=== PATIENT | female | born 1955 | race Caucasian/White ===

== ENCOUNTER 2016-09-29 17:52 | Emergency (ER) | payer OTHER ==
[~2016-09-29] VITALS: Ht 170.2 cm; Wt 72.5 kg
[2016-09-29 18:15] VITALS: BP 141/81; PULSE 68; RESP 18; TEMP 98; O2SAT 100
[2016-09-29] MEDS ORDERED: SODIUM CHLOR 0.9% 1000 ML INJ 1,000 ML IV SCH (18:41)
--- NOTE | 2016-09-29 18:43 | PD ---
HPI Chief Complaint: Musculoskeletal Complaint Time Seen by Provider: 18:43 Travel History International Travel<30 days: No Contact w/Intl Traveler<30days: No Traveled to known affect area: No History of Present Illness HPI 61-year-old female presents to the emergency department for evaluation of upper back pain for 3 days. Denies any injury or trauma. States that 3 days ago she was sitting on her porch when she began to suddenly experienced "burning pain" that she describes as "between her shoulder blades." States that the pain has been persistent for the past 3 days. Aggravated with inspiration and movement. Improved with sitting still. States she has shortness of breath associated with the pain. Denies any chest pain, lightheadedness, dizziness, nausea, vomiting, numbness or tingling, weakness. Denies any medical conditions. Denies any history of or heart disease or family history of heart disease. She does have a history of smoking cigarettes for approximately 50 years. States she has not seen a doctor in about 15 years because she is generally healthy. No other complaints. PFSH Past Medical History Medical History: Denies Significant Hx Tetanus Vaccination: > 5 Years Influenza Vaccination: No ?: Not Menopausal: Yes Past Surgical History Surgical History: No Previous Surgery Social History Alcohol Use: No Tobacco Use: Yes (1 PPD) Substance Use: No Allergies-Medications (Allergen,Severity, Reaction): Coded Allergies: No Known Allergies (Unverified , 09/29/16) Reported Meds & Prescriptions Reported Meds & Active Scripts Active Lortab (Hydrocodone-Acetaminophen) 5-325 Mg Tab 1 Tab PO Q6H PRN Naproxen 500 Mg Tab 500 Mg PO BID 7 Days Review of Systems Except as stated in HPI: all other systems reviewed are Neg Physical Exam Narrative GENERAL: Well-nourished and well-developed pleasant female patient in moderate amount of discomfort, no acute distress. SKIN: Warm and dry. HEAD: Normocephalic and atraumatic. EYES: No injection, drainage, or hyphema noted. PERRLA. EOMI. ENT: No nasal drainage noted. Oropharynx is clear. NECK: Supple and the trachea is midline. CARDIOVASCULAR: Regular rate and rhythm. RESPIRATORY: Breath sounds are equal bilaterally with no accessory muscle use, wheezing, rhonchi, or crackles. GASTROINTESTINAL: Abdomen is soft, non-tender, and nondistended. MUSCULOSKELETAL: No obvious deformities, swelling, cyanosis, or ecchymosis is present throughout the upper and lower extremities. Patient has full range of motion without any signs of neurovascular compromise. Strength 5/5 upper and lower extremities equal bilaterally. 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 She has some mild tenderness to palpation over left thoracic paraspinal musculature. No obvious deformities, bony point tenderness, or crepitus noted throughout the thoracic and lumbar vertebrae. NEUROLOGICAL: Awake, alert, and oriented. Normal speech and gait. Cranial nerves are grossly intact. Data Data Last Documented VS Vital Signs Date Time Temp Pulse Resp B/P Pulse Ox O2 Delivery O2 Flow Rate FiO2 09/29/16 19:00 72 18 161/56 98 Room Air 09/29/16 18:15 98.0 Orders Electrocardiogram (09/29/16 18:41) Ckmb (Isoenzyme) Profile (09/29/16 18:41) Complete Blood Count With Diff (09/29/16 18:41) Comprehensive Metabolic Panel (09/29/16 18:41) Magnesium (Mg) (09/29/16 18:41) Prothrombin Time / Inr (Pt) (09/29/16 18:41) Act Partial Throm Time (Ptt) (09/29/16 18:41) Troponin I (09/29/16 18:41) Chest, Single Ap (09/29/16 18:41) Ecg Monitoring (09/29/16 18:41) Bilateral Bp Monitoring (09/29/16 18:41) Iv Access Insert/Monitor (09/29/16 18:41) Oximetry (09/29/16 18:41) Oxygen Administration (09/29/16 18:41) Morphine Inj (Morphine Inj) (09/29/16 18:45) Sodium Chloride 0.9% Flush (Ns Flush) (09/29/16 18:45) Ct Pulmonary Angiogram (09/29/16 18:41) Sodium Chlor 0.9% 1000 Ml Inj (Ns 1000 M (09/29/16 18:41) Iohexol 350 Inj (Omnipaque 350 Inj) (09/29/16 20:14) Ketorolac Inj (Toradol Inj) (09/29/16 20:45) Labs Laboratory Tests Test 09/29/16 18:45 White Blood Count 4.4 TH/MM3 Red Blood Count 5.42 MIL/MM3 Hemoglobin 16.1 GM/DL Hematocrit 49.7 % Mean Corpuscular Volume 91.7 FL Mean Corpuscular Hemoglobin 29.7 PG Mean Corpuscular Hemoglobin 32.4 % Concent Red Cell Distribution Width 13.5 % Platelet Count 227 TH/MM3 Mean Platelet Volume 9.0 FL Neutrophils (%) (Auto) 39.2 % Lymphocytes (%) (Auto) 43.8 % Monocytes (%) (Auto) 13.3 % Eosinophils (%) (Auto) 2.9 % Basophils (%) (Auto) 0.8 % Neutrophils # (Auto) 1.7 TH/MM3 Lymphocytes # (Auto) 1.9 TH/MM3 Monocytes # (Auto) 0.6 TH/MM3 Eosinophils # (Auto) 0.1 TH/MM3 Basophils # (Auto) 0.0 TH/MM3 CBC Comment DIFF FINAL Differential Comment Prothrombin Time 10.0 SEC Prothromb Time International 0.9 RATIO Ratio Activated Partial 25.9 SEC Thromboplast Time Sodium Level 143 MEQ/L Potassium Level 3.4 MEQ/L Chloride Level 110 MEQ/L Carbon Dioxide Level 24.9 MEQ/L Anion Gap 8 MEQ/L Blood Urea Nitrogen 21 MG/DL Creatinine 0.73 MG/DL Estimat Glomerular Filtration 81 ML/MIN Rate Random Glucose 93 MG/DL Calcium Level 9.2 MG/DL Magnesium Level 2.2 MG/DL Total Bilirubin 0.5 MG/DL Aspartate Amino Transf 21 U/L (AST/SGOT) Alanine Aminotransferase 27 U/L (ALT/SGPT) Alkaline Phosphatase 99 U/L Total Creatine Kinase 61 U/L Troponin I LESS THAN 0.02 NG/ML Total Protein 7.8 GM/DL Albumin 3.7 GM/DL [facility] Medical Decision Making Medical Screen Exam Complete: Yes Emergency Medical Condition: Yes Differential Diagnosis Muscle spasm versus discogenic pain versus PE versus ACS versus TAA Narrative Course 61-year-old female presents to the emergency department for evaluation of upper back pain for 3 days. Patient is afebrile, vital signs are stable. No injury or trauma. Physical examination is essentially unremarkable. Patient appears quite uncomfortable in the exam room. IV access is obtained, labs have been drawn and sent. Chest x-ray has been ordered and is pending. CT pulmonary angiogram has been ordered and is pending. Patient is administered morphine 4 mg IV. EKG shows normal sinus rhythm with no acute ST elevations or depressions. CBC shows an elevated hemoglobin and hematocrit of 16.1, 49.7. Otherwise unremarkable. CMP shows mild hypokalemia with a potassium of 3.4, otherwise unremarkable. Troponin is less than 0.02. Coags are unremarkable. Chest x-ray is negative for any acute abnormalities. CT pulmonary angiogram is negative for PE. Study does reveal 2 subcentimeter right apical pulmonary nodules and coronary artery calcifications. Discussed all findings with the patient. She is instructed to follow-up for repeat CT scan in 6 months for pulmonary nodules. Cardiac enzymes are negative , EKG is unremarkable and CT pulmonary angiograms unremarkable for any acute abnormalities. The patient's back pain is likely musculoskeletal in etiology. She has remained stable and without complaint. The emergency department. She' ll be discharged with pain medication. Discussed when to return to the emergency department. Advised to follow-up with her PCP. Patient verbalizes understanding and agreement with treatment plan. I discussed the case with my attending physician Dr. Jaramillo who is aware of the patients history, physical examination findings, and treatment plan. Diagnosis Primary Impression: Acute thoracic back pain Qualified Code: M54.6 - Acute left-sided thoracic back pain Additional Impression: Pulmonary nodules Referrals: Primary Care Physician Patient Instructions: Back Pain (ED), General Instructions Additional Instructions: Have a repeat chest CT in 6 months to follow pulmonary nodules. Apply ice or heat to help alleviate symptoms. Take medications as prescribed with food and a full glass of water. Do not take Lortab with alcohol or while driving. Follow-up with your Primary Care Physician. Return to the ED for any acute worsening of symptoms. Med/Other Pt SpecificInfo: Prescription(s) given Scripts Hydrocodone-Acetaminophen (Lortab)5-325 Mg Tab1 Tab PO Q6H PRN (PAIN GREATER THAN 6) #20 TAB Ref 0 Prov:Tyson Jaramillo MD 09/29/16 Naproxen 500 Mg [id number] Mg PO BID 7 Days Ref 0 Prov:Tyson Jaramillo MD 09/29/16 Disposition: 01 DISCHARGE HOME Condition: Stable Kylah Bone Sep 29, 2016 18:43
[2016-09-29] MEDS ORDERED: MORPHINE SULFATE 4 MG/ML INJ IV PUSH ONE (18:45)
[2016-09-29] MEDS ORDERED: SODIUM CHLORIDE 0.9% FLUSH 5 ML FLUSH IVF PRN (18:45)
[2016-09-29 18:55] VITALS: O2SAT 98
[2016-09-29 19:00] VITALS: BP 161/56; PULSE 72; RESP 18; O2SAT 98
[2016-09-29 19:00] LABS: AUTOMATED NEUTROPHIL # 1.7 TH/MM3 (1.8-7.7); BASOPHIL % 0.8 % (0.0-2.0); EOSINOPHIL # 0.1 TH/MM3 (0-0.4); EOSINOPHIL % 2.9 % (0.0-4.0); HEMATOCRIT 49.7 % (35.0-46.0); HEMO FLAGS DIFF FINAL; LYMPH % 43.8 % (9.0-44.0); LYMPHOCYTE # 1.9 TH/MM3 (1.0-4.8); MEAN CELL VOLUME 91.7 FL (80.0-100.0); MEAN CORPUSCULAR HEMOGLOBIN 29.7 PG (27.0-34.0); MEAN CORPUSCULAR HGB CONC 32.4 % (32.0-36.0); MONO % 13.3 % (0.0-8.0); NEUT % 39.2 % (16.0-70.0); PLATELET COUNT 227 TH/MM3 (150-450); RED BLOOD COUNT 5.42 MIL/MM3 (4.00-5.30); RED CELL DISTRIBUTION WIDTH 13.5 % (11.6-17.2); WHITE BLOOD COUNT 4.4 TH/MM3 (4.0-11.0)
[2016-09-29 19:13] LABS: CHLORIDE 110 MEQ/L (98-107); POTASSIUM 3.4 MEQ/L (3.5-5.1); SODIUM (NA) 143 MEQ/L (136-145)
[2016-09-29 19:18] LABS: ANION GAP 8 MEQ/L (5-15); BICARBONATE 24.9 MEQ/L (21.0-32.0); BLOOD UREA NITROGEN 21 MG/DL (7-18); MAGNESIUM 2.2 MG/DL (1.5-2.5)
[2016-09-29 19:19] LABS: APTT (PATIENT) 25.9 SEC (24.3-30.1); INTERNATIONAL NORMALIZED RATIO 0.9 RATIO
--- NOTE | 2016-09-29 19:20 | RADHPO ---
EXAM DATE/TIME: 09/29/2016 19:06 [facility] COMPARISON: No previous studies available for comparison. INDICATIONS : UPPER BACK PAIN BETWEEN THE SHOULDER BLADES SINCE THURSDAY MEDICAL HISTORY : None. SURGICAL HISTORY : None. ENCOUNTER: Initial ACUITY: 2 days PAIN SCORE: 6/10 LOCATION: Bilateral chest FINDINGS: A single view of the chest demonstrates the lungs to be symmetrically aerated without evidence of mas s, infiltrate or effusion. The cardiomediastinal contours are unremarkable. Osseous structures are intact. CONCLUSION: No evidence of acute cardiopulmonary disease. Erlin Diaz MD on September 29, 2016 at 19:19 Board Certified Radiologist. This report was verified electronically.
[2016-09-29 19:21] LABS: ALT (GPT) 27 U/L (10-53); AST (GOT) 21 U/L (15-37); GLOMERULAR FILTRATION RATE 81 ML/MIN (>89)
[2016-09-29 19:22] LABS: TOTAL BILIRUBIN ADULT 0.5 MG/DL (0.2-1.0)
[2016-09-29 19:23] LABS: ALKALINE PHOSPHATASE 99 U/L (45-117)
[2016-09-29 20:00] LABS: CREATINE KINASE 61 U/L (26-192)
[2016-09-29] MEDS ORDERED: IOHEXOL 350 MG/ML 10 ML VIAL (for RAD DIAG) IV ONE (20:14)
--- NOTE | 2016-09-29 20:19 | RADHPO ---
EXAM DATE/TIME: 09/29/2016 19:52 [facility] COMPARISON: No previous studies available for comparison. INDICATIONS : Chest pain. IV CONTRAST: 60 cc Omnipaque 350 (iohexol) IV RADIATION DOSE: 11.33 CTDIvol (mGy) MEDICAL HISTORY : None SURGICAL HISTORY : None. ENCOUNTER: Initial ACUITY: 1 day PAIN SCALE: 3/10 LOCATION: chest TECHNIQUE: Volumetric scanning of the chest was performed using a pulmonary embolism protocol MIP images were re constructed. Using automated exposure control and adjustment of the mA and/or kV according to patien t size, radiation dose was kept as low as reasonably achievable to obtain optimal diagnostic quality images. FINDINGS: PULMONARY ARTERIES: No filling defects are seen in the pulmonary arteries through the segmental level. LUNGS: Mild to moderate emphysema. 3 mm apical segment right upper lobe pulmonary nodule seen on series 4 im age 33. There is a 9 mm nodule in the posterior segment of the right upper lobe, series 4 image 41. PLEURAE: There is no pleural thickening or pleural effusion. MEDIASTINUM: No lymphadenopathy demonstrated. Heart size within normal limits. There is coronary artery calcificat ion, especially the left anterior descending. MUSCULOSKELETAL: Within normal limits for patient age. MISCELLANEOUS: The visualized upper abdominal organs demonstrate no acute abnormality. CONCLUSION: 1. No pulmonary embolus. 2. Coronary artery calcification. 3. Emphysema. 4. Subcentimeter right upper lobe pulmonary nodules. Followup noncontrast chest CT recommended in [facility]. Elrin Diaz MD on September 29, 2016 at 20:14 Board Certified Radiologist. This report was verified electronically.
[2016-09-29] MEDS ORDERED: HYDR-3533 PO (20:34)
[2016-09-29] MEDS ORDERED: NAPR500T PO (20:34)
[2016-09-29] MEDS ORDERED: KETOROLAC TROMETHAMINE 30 MG/ML (IVP) VIAL IV PUSH ONE (20:45)
[2016-09-29 21:00] VITALS: BP 168/71
--- NOTE | 2016-09-30 10:32 | EKG ---
Date Performed: 09/29/2016 Time Performed: 18:51:38 PTAGE: 61 years EKG: Sinus rhythm Normal ECG NO PREVIOUS TRACING DOCTOR: Cecil Green Interpretating Date/Time 09/30/2016 10:32:06
== END 2016-09-29 21:01 | disposition home or self-care (01) ==
LOC: PHEFT 17:52
DX: M54.6 Pain in thoracic spine (principal); R91.8 Other nonspecific abnormal finding of lung field; R06.02 Shortness of breath; F17.210 Nicotine dependence, cigarettes, uncomplicated
CPT/HCPCS: 71010; 71275; 80053; 82550; 83735; 84484; 85025; 85610; 85730; 93005; 96361; 96374; 96375; 99284; J1885; J2270; J7030; Q9967

== ENCOUNTER 2017-10-30 12:36 | Inpatient (IN) | payer OTHER ==
[~2017-10-30] VITALS: Ht 172.7 cm; Wt 69.5 kg
[~2017-10-30 12:36] MED LIST: HYDR-3533 PO; NAPR500T2 PO
[2017-10-30] MEDS ORDERED: IOHEXOL 350 MG/ML 10 ML VIAL (for RAD DIAG) IVCONTRAST ONE (12:37)
[2017-10-30 12:41] VITALS: BP 163/72; PULSE 83; RESP 18; TEMP 97.3; O2SAT 99
[2017-10-30] MEDS ORDERED: MORPHINE SULFATE 4 MG/ML INJ IV PUSH ONE ×2 (13:15→14:30)
[2017-10-30] MEDS ORDERED: SODIUM CHLORIDE 0.9% FLUSH 10 ML FLUSH IV FLUSH PRN (13:15)
[2017-10-30] MEDS ORDERED: ONDANSETRON HCL 4 MG/2 ML VIAL IV PUSH ONE (13:15)
[2017-10-30 13:18] VITALS: RESP 18; O2SAT 100
--- NOTE | 2017-10-30 13:24 | PD ---
HPI Chief Complaint: Abnormal Results Time Seen by Provider: 12:50 Travel History International Travel<30 days: No Contact w/Intl Traveler<30days: No Traveled to known affect area: No History of Present Illness HPI The patient is a 62-year-old female who presents emergency department for back pain. The patient developed back pain approximately one year ago. The patient has had continuing back pain, was seen in urgent care in July where she had x-rays of her back performed. The patient states she was told the x-rays were negative, however, continued to have back pain. She saw her nurse practitioner, Azalia MEYER, who ordered an outpatient MRI of the cervical spine and thoracic spine. The patient was advised to come to the emergency department as she had metastatic cancer with a fracture to T5, noted there was mild increased signal and edema within the adjacent spinal cord. The patient denies any weakness or numbness of the upper or lower extremities. She denies any urinary or fecal incontinence. She denies any history of cancer including lung cancer, pancreatic cancer, and colon cancer. However, she is never had a colonoscopy. She does smoke on a daily basis. She denies any fever , chills, sweats, or weight loss. Symptoms are moderate. PFSH Past Medical History Medical History: Denies Significant Hx Medical other: Yes (chronic back pain) Menopausal: Yes Past Surgical History Surgical History: No Previous Surgery Social History Alcohol Use: No Tobacco Use: Yes (1 PPD) Substance Use: No Allergies-Medications (Allergen,Severity, Reaction): Coded Allergies: No Known Allergies (Unverified Allergy, Unknown, 10/30/17) Reported Meds & Prescriptions Reported Meds & Active Scripts Active Lortab (Hydrocodone-Acetaminophen) 5-325 Mg Tab 1 Tab PO Q6H PRN Naproxen 500 Mg Tab 500 Mg PO BID 7 Days Review of Systems Except as stated in HPI: all other systems reviewed are Neg General / Constitutional: No: Fever, Weight Gain, Weight Loss Cardiovascular: No: Chest Pain or Discomfort Respiratory: No: Shortness of Breath Gastrointestinal: No: Nausea, Vomiting, Abdominal Pain Genitourinary: No: Incontinence Musculoskeletal: Positive: Pain Neurologic: No: Paresthesia, Sensory Disturbance Physical Exam Narrative GENERAL: Awake, alert, 62-year-old female who appears her stated age and is in no acute respiratory distress. SKIN: Focused skin assessment warm/dry. HEAD: Atraumatic. Normocephalic. EYES: Pupils equal and round. No scleral icterus. No injection or drainage. ENT: No nasal bleeding or discharge. Mucous membranes pink and moist. NECK: Trachea midline. No JVD. CARDIOVASCULAR: Regular rate and rhythm. No murmur appreciated. RESPIRATORY: No accessory muscle use. Clear to auscultation. Breath sounds equal bilaterally. GASTROINTESTINAL: Abdomen soft, non-tender, nondistended. Back: Large lipoma noted over the right upper back. Burn amanda from a heating pad to the low back. No tenderness over the thoracic or lumbar vertebrae. MUSCULOSKELETAL: No obvious deformities. No clubbing. No cyanosis. No edema. Plantar flexion is 5 out of 5. Extension knees is 5 out of 5. Flexion of the hips is 5 out of 5. [employer] Finisher strength is 5 out of 5. NEUROLOGICAL: Awake and alert. No obvious cranial nerve deficits. Motor grossly within normal limits. Normal speech. PSYCHIATRIC: Appropriate mood and affect; insight and judgment normal. Data Data Last Documented VS Vital Signs Date Time Temp Pulse Resp B/P (MAP) Pulse Ox O2 Delivery O2 Flow Rate FiO2 10/30/17 15:43 79 18 172/76 (108) 99 Room Air 10/30/17 12:41 97.3 Orders Orders Electrocardiogram (10/30/17 13:04) Complete Blood Count With Diff (10/30/17 13:04) Comprehensive Metabolic Panel (10/30/17 13:04) Creatine Kinase (Cpk) (10/30/17 13:04) Prothrombin Time / Inr (Pt) (10/30/17 13:04) Act Partial Throm Time (Ptt) (10/30/17 13:04) Urinalysis - C+S If Indicated (10/30/17 13:04) Ct Brain W/O Iv Contrast(Rout) (10/30/17 13:04) Blood Glucose (10/30/17 13:04) Ecg Monitoring (10/30/17 13:04) Iv Access Insert/Monitor (10/30/17 13:04) Oximetry (10/30/17 13:04) Sodium Chloride 0.9% Flush (Ns Flush) (10/30/17 13:15) Ct Thorax/ Chest W Iv Contrast (10/30/17 ) Ct Abd/Pel W Iv Contrast(Rout) (10/30/17 ) Morphine Inj (Morphine Inj) (10/30/17 13:15) Ondansetron Inj (Zofran Inj) (10/30/17 13:15) Protein Electrophoresis Serum (10/30/17 13:04) Morphine Inj (Morphine Inj) (10/30/17 14:30) Potassium Chloride (Kcl) (10/30/17 14:45) Iohexol 350 Inj (Omnipaque 350 Inj) (10/30/17 12:37) Admit To Inpatient (10/30/17 ) Vital Signs (Adult) Q4H (10/30/17 15:33) Neuro Checks Q4H (10/30/17 15:33) Activity Oob With Assistance (10/30/17 15:33) Diet Regular Basic (10/30/17 Dinner) Sodium Chlor 0.9% 1000 Ml Inj (Ns 1000 M (10/30/17 16:00) Sodium Chloride 0.9% Flush (Ns Flush) (10/30/17 15:45) Sodium Chloride 0.9% Flush (Ns Flush) (10/30/17 21:00) Acetaminophen (Tylenol) (10/30/17 15:45) Ondansetron Inj (Zofran Inj) (10/30/17 15:45) Temazepam (Restoril) (10/30/17 15:45) Basic Metabolic Panel (Bmp) (10/31/17 06:00) Complete Blood Count With Diff (10/31/17 06:00) Resp Oxygen Delio C Titrat 1-4 L (10/30/17 ) Scd Bilateral/Knee High DANIEL.BID (10/30/17 15:33) Naloxone Inj (Narcan Inj) (10/30/17 15:45) Magnesium Hydroxide Liq (Milk Of Magnesi (10/30/17 15:45) Sennosides (Senokot) (10/30/17 15:45) Bisacodyl Supp (Dulcolax Supp) (10/30/17 15:45) Lactulose Liq (Lactulose Liq) (10/30/17 15:45) Inpatient Certification (10/30/17 ) Consult Neurosurgery (10/30/17 ) Consult Medical Oncology (10/30/17 ) (Hub Use Only)Inp Phy Cons/Ref (10/30/17 ) Dexamethasone Inj (Decadron Inj) (10/30/17 18:00) Oxycodone-Acetamin 7.5-325 Mg (Percocet (10/30/17 16:15) Morphine Inj (Morphine Inj) (10/30/17 16:15) (Hub Use Only)Inp Phy Cons/Ref (10/30/17 ) Admit Order (Ed Use Only) (10/30/17 16:35) Labs Laboratory Tests Test 10/30/17 13:12 White Blood Count 10.0 TH/MM3 Red Blood Count 4.85 MIL/MM3 Hemoglobin 17.6 GM/DL Hematocrit 49.6 % Mean Corpuscular Volume 102.1 FL Mean Corpuscular Hemoglobin 36.3 PG Mean Corpuscular Hemoglobin Concent 35.6 % Red Cell Distribution Width 14.9 % Platelet Count 337 TH/MM3 Mean Platelet Volume 8.8 FL Neutrophils (%) (Auto) 65.4 % Lymphocytes (%) (Auto) 22.4 % Monocytes (%) (Auto) 8.0 % Eosinophils (%) (Auto) 1.7 % Basophils (%) (Auto) 2.5 % Neutrophils # (Auto) 6.5 TH/MM3 Lymphocytes # (Auto) 2.2 TH/MM3 Monocytes # (Auto) 0.8 TH/MM3 Eosinophils # (Auto) 0.2 TH/MM3 Basophils # (Auto) 0.3 TH/MM3 CBC Comment DIFF FINAL Differential Comment Prothrombin Time 9.9 SEC Prothromb Time International Ratio 1.0 RATIO Activated Partial Thromboplast Time 24.5 SEC Blood Urea Nitrogen 19 MG/DL Creatinine 1.02 MG/DL Random Glucose 130 MG/DL Total Protein 7.7 GM/DL Albumin 3.6 GM/DL Calcium Level 10.0 MG/DL Alkaline Phosphatase 105 U/L Aspartate Amino Transf (AST/SGOT) 27 U/L Alanine Aminotransferase (ALT/SGPT) 13 U/L Total Bilirubin 0.3 MG/DL Sodium Level 138 MEQ/L Potassium Level 2.8 MEQ/L Chloride Level 104 MEQ/L Carbon Dioxide Level 25.6 MEQ/L Anion Gap 8 MEQ/L Estimat Glomerular Filtration Rate 55 ML/MIN Total Creatine Kinase 82 U/L MDM Medical Decision Making Medical Screen Exam Complete: Yes Emergency Medical Condition: Yes Medical Record Reviewed: Yes Interpretation(s) [facility] imaging MRI thoracic spine with and without contrast reveals innumerable bone lesions throughout the thoracic and visualized upper lumbar spine. These enhancing lesions are highly suspicious for osseous metastatic disease. Bone scan could survey all of the osseous structures are consider PET CT examination for localization of her primary site. There is a severe kyphotic hyperinflation Center to T5 secondary to severe compression fracture the T5 vertebral body. There bone lesions completely within a T4, T5, and T6 vertebral bodies and posterior elements causing mild spinal canal stenosis and mild increased signal/ edema within the adjacent spinal cord. X-ray MRI of the cervical spine reveals enhancing bone lesions within the occipital bone, C3 vertebral body, T5 vertebral body highly suspicious for osseous metastatic disease. EKG reveals normal sinus rhythm with a rate of 77. Nonspecific ST and T-wave changes. CT the brain reveals intracranial contents are unremarkable. Scattered nonspecific lucencies in the calvarium. CT thorax reveals a distractible lesion involving were probably the T5 and T6 vertebral bodies. There does appear to be significant canal compromise with epidural spread of disease. This is highly suspicious for malignancy. Dedicated MRI imaging is more to for further assessment. This lesion would be amenable to CT-guided biopsy for sampling. CT abdomen and pelvis reveals punctate nonobstructing stones in the kidneys bilaterally. CT examination is otherwise within normal limits for age. Last Impressions Head CT 10/30/17 1304 Signed Impressions: Service Date/Time: Monday, October 30, 2017 14:20 - CONCLUSION: Intracranial contents are unremarkable. Scattered nonspecific lucencies in the calvarium. Ulises Mckoy MD FACR Chest CT 10/30/17 0000 Signed Impressions: Service Date/Time: Monday, October 30, 2017 14:26 - CONCLUSION: The examination demonstrates a destructive lesion involving what are probably the T5 and T6 vertebral bodies. There does appear to be significant canal compromise with epidural spread of disease. This is highly suspicious for malignancy. Dedicated MRI imaging is warranted for further assessment. This lesion would be amenable to CT-guided biopsy for sampling. Papa Mckoy MD Abdomen/Pelvis CT 10/30/17 0000 Signed Impressions: Service Date/Time: Monday, October 30, 2017 14:26 - CONCLUSION: 1. Punctate nonobstructing stones in the kidneys bilaterally. 2. CT examination is otherwise within normal limits for age. Papa Mckoy MD Laboratory Tests Test 10/30/17 13:12 White Blood Count 10.0 TH/MM3 Red Blood Count 4.85 MIL/MM3 Hemoglobin 17.6 GM/DL Hematocrit 49.6 % Mean Corpuscular Volume 102.1 FL Mean Corpuscular Hemoglobin 36.3 PG Mean Corpuscular Hemoglobin Concent 35.6 % Red Cell Distribution Width 14.9 % Platelet Count 337 TH/MM3 Mean Platelet Volume 8.8 FL Neutrophils (%) (Auto) 65.4 % Lymphocytes (%) (Auto) 22.4 % Monocytes (%) (Auto) 8.0 % Eosinophils (%) (Auto) 1.7 % Basophils (%) (Auto) 2.5 % Neutrophils # (Auto) 6.5 TH/MM3 Lymphocytes # (Auto) 2.2 TH/MM3 Monocytes # (Auto) 0.8 TH/MM3 Eosinophils # (Auto) 0.2 TH/MM3 Basophils # (Auto) 0.3 TH/MM3 CBC Comment DIFF FINAL Differential Comment Prothrombin Time 9.9 SEC Prothromb Time International Ratio 1.0 RATIO Activated Partial Thromboplast Time 24.5 SEC Blood Urea Nitrogen 19 MG/DL Creatinine 1.02 MG/DL Random Glucose 130 MG/DL Total Protein 7.7 GM/DL Albumin 3.6 GM/DL Calcium Level 10.0 MG/DL Alkaline Phosphatase 105 U/L Aspartate Amino Transf (AST/SGOT) 27 U/L Alanine Aminotransferase (ALT/SGPT) 13 U/L Total Bilirubin 0.3 MG/DL Sodium Level 138 MEQ/L Potassium Level 2.8 MEQ/L Chloride Level 104 MEQ/L Carbon Dioxide Level 25.6 MEQ/L Anion Gap 8 MEQ/L Estimat Glomerular Filtration Rate 55 ML/MIN Total Creatine Kinase 82 U/L Differential Diagnosis Differential diagnosis includes anesthetic breast cancer, metastatic lung cancer , metastatic pancreatic cancer, metastatic colon cancer, multiple myeloma, cord compression, pathologic fracture. Narrative Course IV was established, labs are drawn and sent, and the patient was placed on cardiac telemetry monitoring and continuous pulse oximetry monitoring. I reviewed the patient's MRI findings, the patient had an MRI of the thoracic and cervical spine. MRIs reveal the patient has innumerable bone lesions throughout the thoracic spine as well as the cervical spine and a severe kyphotic hyperangulation centered at T5 secondary to severe compression fracture of the T5 vertebral body with bone lesions confluently within the T4, T5, T6 vertebral bodies and posterior elements causing mild spinal canal stenosis and mild increased single/edema within the adjacent spinal cord. The patient also had an MRI of the cervical spine which reveals an enhancing lesions with an occipital bone, C3 vertebral body, C5 vertebral body height suspicious for osseous metastatic disease. CT the brain reveals lesions in the calvarium. CT of the thorax reveals compression fractures with metastatic disease and compromise of the spinal cord with possible epidural spread of disease. CT the abdomen and pelvis is negative. The patient may need a biopsy one of the bony lesions, may need colonoscopy and will need serum possible electrophoresis resolved. Patient will also need evaluation by neurosurgery and possibly radiation oncology as she may be a candidate for radiation therapy for improvement of her symptoms and worsening disease. Physician Communication Physician Communication The on-call medical service was paged for admission. I discussed the patient with Dr. Pride who agrees with admission. Diagnosis Primary Impression: Metastatic bone cancer Additional Impression: Pathologic thoracic fracture Qualified Codes: M84.48XA - Pathological fracture, other site, initial encounter for fracture Admitting Information Admitting Physician Requests: Admit Condition: Stable Amilcar Vicente MD Oct 30, 2017 13:24
[2017-10-30 13:53] VITALS: BP 188/79; PULSE 76; RESP 17; O2SAT 98
[2017-10-30 13:53] LABS: AUTOMATED NEUTROPHIL # 6.5 TH/MM3 (1.8-7.7); BASOPHIL # 0.3 TH/MM3 (0-0.2); BASOPHIL % 2.5 % (0.0-2.0); EOSINOPHIL # 0.2 TH/MM3 (0-0.4); EOSINOPHIL % 1.7 % (0.0-4.0); HEMATOCRIT 49.6 % (35.0-46.0); HEMOGLOBIN 17.6 GM/DL (11.6-15.3); LYMPH % 22.4 % (9.0-44.0); LYMPHOCYTE # 2.2 TH/MM3 (1.0-4.8); MEAN CELL VOLUME 102.1 FL (80.0-100.0); MEAN CORPUSCULAR HEMOGLOBIN 36.3 PG (27.0-34.0); MEAN CORPUSCULAR HGB CONC 35.6 % (32.0-36.0); MEAN PLATELET VOLUME 8.8 FL (7.0-11.0); MONOCYTE # 0.8 TH/MM3 (0-0.9); NEUT % 65.4 % (16.0-70.0); PLATELET COUNT 337 TH/MM3 (150-450); RED BLOOD COUNT 4.85 MIL/MM3 (4.00-5.30); RED CELL DISTRIBUTION WIDTH 14.9 % (11.6-17.2)
[2017-10-30 13:55] LABS: PROTHROMBIN TIME - PATIENT 9.9 SEC (9.8-11.6)
[2017-10-30 14:08] LABS: ALBUMIN 3.6 GM/DL (3.4-5.0); ALKALINE PHOSPHATASE 105 U/L (45-117); ALT (GPT) 13 U/L (10-53); AST (GOT) 27 U/L (15-37); BICARBONATE 25.6 MEQ/L (21.0-32.0); BLOOD UREA NITROGEN 19 MG/DL (7-18); CHLORIDE 104 MEQ/L (98-107); CREATININE 1.02 MG/DL (0.50-1.00); GLOMERULAR FILTRATION RATE 55 ML/MIN (>89); GLUCOSE,RANDOM 130 MG/DL (74-106); SODIUM (NA) 138 MEQ/L (136-145); TOTAL BILIRUBIN ADULT 0.3 MG/DL (0.2-1.0); TOTAL PROTEIN 7.7 GM/DL (6.4-8.2)
--- NOTE | 2017-10-30 14:40 | RADRPT ---
EXAM DATE/TIME: 10/30/2017 14:20 [facility] COMPARISON: No previous studies available for comparison. INDICATIONS : Sent by PCP upper back pain several months. RADIATION DOSE: 51.36 CTDIvol (mGy) MEDICAL HISTORY : Chronic back pain. SURGICAL HISTORY : None. ENCOUNTER: Initial ACUITY: 2 months PAIN SCALE: 9/10 LOCATION: Bilateral TECHNIQUE: Multiple contiguous axial images were obtained of the head. Using automated exposure control and adj ustment of the mA and/or kV according to patient size, radiation dose was kept as low as reasonably a chievable to obtain optimal diagnostic quality images. DICOM format image data is available electro nically for review and comparison. FINDINGS: CEREBRUM: The ventricles are normal for age. No evidence of midline shift, mass lesion, hemorrhage or acute in farction. No extra-axial fluid collections are seen. POSTERIOR FOSSA: The cerebellum and brainstem are intact. The 4th ventricle is midline. The cerebellopontine angle i s unremarkable. EXTRACRANIAL: The visualized portion of the orbits is intact. SKULL: Scattered nonspecific lucencies in the calvarium. Myeloma can occasionally give this appearance. CONCLUSION: Intracranial contents are unremarkable. Scattered nonspecific lucencies in the teressa rium. Ulises Mckoy MD FACR on October 30, 2017 at 14:38 Board Certified Radiologist. This report was verified electronically.
--- NOTE | 2017-10-30 14:44 | RADRPT ---
EXAM DATE/TIME: 10/30/2017 14:26 [facility] COMPARISON: CT BRAIN W/O CONTRAST, October 30, 2017, 14:20. INDICATIONS : Chronic back pain . IV CONTRAST: 96 cc Omnipaque 350 (iohexol) IV ; Cumulative dose for multiple exams. ORAL CONTRAST: No oral contrast ingested. RADIATION DOSE: 9.47 CTDIvol (mGy) ; Combined studies - Thorax/Abdomen/Pelvis MEDICAL HISTORY : Chronic back pain SURGICAL HISTORY : None. ENCOUNTER: Initial ACUITY: 3 months PAIN SCALE: 9/10 LOCATION: Bilateral Umbilical TECHNIQUE: Volumetric scanning of the abdomen and pelvis was performed. Using automated exposure control and ad justment of the mA and/or kV according to patient size, radiation dose was kept as low as reasonably achievable to obtain optimal diagnostic quality images. DICOM format image data is available electro nically for review and comparison. FINDINGS: The limited portion of lung base visualized is clear. The appearance of the liver, spleen, pancreas and adrenal glands is within normal limits. Examination of the right kidney demonstrates a 2 mm nonobstructing stone. A 2 mm nonobstructing stone is seen wi thin the left kidney as well. The abdominal aorta is normal in caliber. There is fairly diffuse atherosclerotic plaquing. There is no retroperitoneal adenopathy. The visualized loops of small and large bowel in the upper abdomen are unremarkable. No free air or f ree fluid is identified. There is no free fluid within the pelvis. No iliac or inguinal adenopathy is seen. The visualized bony structures demonstrate degenerative changes but are otherwise intact. CONCLUSION: 1. Punctate nonobstructing stones in the kidneys bilaterally. 2. CT examination is otherwise within normal limits for age. Papa Mckoy MD on October 30, 2017 at 14:40 Board Certified Radiologist. This report was verified electronically.
[2017-10-30] MEDS ORDERED: POTASSIUM CHLORIDE 20 MEQ CONTROLLED RELEASE TAB PO ONE (14:45)
--- NOTE | 2017-10-30 14:52 | RADRPT ---
EXAM DATE/TIME: 10/30/2017 14:26 [facility] COMPARISON: CT ABDOMEN & PELVIS W CONTRAST, October 30, 2017, 14:26. CT PULMONARY ANGIOGRAM, September 29, 2016, 19:52. CT BRAIN W/O CONTRAST, October 30, 2017, 14:20. INDICATIONS : Chronic back pain for several months. IV CONTRAST: 96 cc Omnipaque 350 (iohexol) IV ; Cumulative dose for multiple exams. RADIATION DOSE: 9.47 CTDIvol (mGy) MEDICAL HISTORY : Chronic back pain SURGICAL HISTORY : ENCOUNTER: Initial ACUITY: 1 day PAIN SCALE: 8/10 LOCATION: Bilateral spine TECHNIQUE: Volumetric scanning of the chest was performed. Using automated exposure control and adjustment of t he mA and/or kV according to patient size, radiation dose was kept as low as reasonably achievable to obtain optimal diagnostic quality images. DICOM format image data is available electronically for review and comparison. Follow-up recommendations for detected pulmonary nodules are based at a minimum on nodule size and pa tient risk factors according to Fleischner Society Guidelines. FINDINGS: Imaging through the pulmonary parenchyma demonstrates COPD changes. The lungs are otherwise clear. No suspicious mass lesions are seen. The heart is normal in size. There is atherosclerotic plaquing in the coronary arteries. No hilar or mediastinal adenopathy is identified. No axillary adenopathy is identified. The visualized portions of upper abdomen are unremarkable. The osseous structures demonstrate a lytic lesion with partial destruction of what appear to be the T 5 and T6 vertebral bodies. Dedicated MRI imaging of the thoracic spine with contrast is warranted for further assessment. There does appear to be significant canal compromise with epidural spread of dis ease. CONCLUSION: The examination demonstrates a destructive lesion involving what are probably the T5 and T6 vertebral bodies. There does appear to be significant canal compromise with epidural spread of disease. This i s highly suspicious for malignancy. Dedicated MRI imaging is warranted for further assessment. This l esion would be amenable to CT-guided biopsy for sampling. Papa Mckoy MD on October 30, 2017 at 14:43 Board Certified Radiologist. This report was verified electronically.
--- NOTE | 2017-10-30 15:40 | HHI.HP ---
[facility] Unknown Admission Diagnosis Diagnoses: Chief Complaint: Back pain, abnormal MRI results. Travel History International Travel<30 Days: No Contact w/Intl Traveler <30 Da: No Traveled to Known Affected Are: No History of Present Illness Ms. Salgado is a pleasant 62-year-old female with a history of chronic back pain, tobacco use who presents to the emergency department on the advice of her primary care provider due to abnormal MRI of the cervical and thoracic spine. 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 She immediately had pain. However in the last 6 months or so her back pain has been significantly pronounced and worsening. She reports constant sharp pain without any radiation. Her pain is mostly located in the mid back. She denies any fever or chills, weight loss. No history of any kind of malignancies. She saw her primary care provider who ordered MRI of cervical and thoracic spine. Patient underwent MRI studies on . MRI studies were significant for multiple vertebral bone lesions throughout the thoracic and lumbar spine. She also had within the occipital bone, C3 vertebral body, C5 vertebral body. Severe degenerative disc disease was also identified at C4-C5 and C5-C6 with posterior disc osteophyte complexes causing severe spinal stenosis. At the time of this interview, patient complains of persistent back pain. Otherwise she is tolerating diet well. No fever or chills. No changes in bowel or bladder habits. No loss of control of bowel or bladder. Review of Systems Except as stated in HPI: all other systems reviewed are Neg Past Family Social History Past Medical History Chronic back pain Past Surgical History No previous surgeries. Reported Medications Lortab (Hydrocodone-Acetaminophen) 5-325 Mg Tab 1 Tab PO Q6H PRN Naproxen 500 Mg Tab 500 Mg PO BID 7 Days Allergies: Coded Allergies: No Known Allergies (Unverified Allergy, Unknown, 10/30/17) Family History Mother had massive stroke Social History Denies using alcohol or illicit drugs. Smokes 1 ppd. Physical Exam Vital Signs Vital Signs Date Time Temp Pulse Resp B/P (MAP) Pulse Ox O2 Delivery O2 Flow Rate FiO2 10/30/17 13:53 76 17 188/79 (115) 98 Room Air 10/30/17 13:18 18 100 Room Air 10/30/17 12:41 97.3 83 18 163/72 (102) 99 Room Air Physical Exam GENERAL: This is a well-nourished, well-developed patient, in no apparent distress. SKIN: No rashes, ecchymoses or lesions. Warm and dry. HEAD: Atraumatic. Normocephalic. No temporal or scalp tenderness. EYES: Pupils equal round and reactive. No injection or drainage. ENT: Nose without bleeding, purulent drainage or septal hematoma. Airway patent. NECK: Trachea midline. No lymphadenopathy. Supple, nontender, no meningeal signs. CARDIOVASCULAR: Regular rate and rhythm without murmurs, gallops, or rubs. No JVD. RESPIRATORY: Clear to auscultation. Breath sounds equal bilaterally. No wheezes , rales, or rhonchi. GASTROINTESTINAL: Abdomen soft, non-tender, nondistended. No guarding. MUSCULOSKELETAL: Extremities without clubbing, cyanosis, or edema. NEUROLOGICAL: Awake and alert. Cranial nerves II through XII intact. No focal neurological deficits. Normal speech. Laboratory Laboratory Tests Test 10/30/17 13:12 White Blood Count 10.0 Red Blood Count 4.85 Hemoglobin 17.6 Hematocrit 49.6 Mean Corpuscular Volume 102.1 Mean Corpuscular Hemoglobin 36.3 Mean Corpuscular Hemoglobin Concent 35.6 Red Cell Distribution Width 14.9 Platelet Count 337 Mean Platelet Volume 8.8 Neutrophils (%) (Auto) 65.4 Lymphocytes (%) (Auto) 22.4 Monocytes (%) (Auto) 8.0 Eosinophils (%) (Auto) 1.7 Basophils (%) (Auto) 2.5 Neutrophils # (Auto) 6.5 Lymphocytes # (Auto) 2.2 Monocytes # (Auto) 0.8 Eosinophils # (Auto) 0.2 Basophils # (Auto) 0.3 CBC Comment DIFF FINAL Differential Comment Prothrombin Time 9.9 Prothromb Time International Ratio 1.0 Activated Partial Thromboplast Time 24.5 Blood Urea Nitrogen 19 Creatinine 1.02 Random Glucose 130 Total Protein 7.7 Albumin 3.6 Calcium Level 10.0 Alkaline Phosphatase 105 Aspartate Amino Transf (AST/SGOT) 27 Alanine Aminotransferase (ALT/SGPT) 13 Total Bilirubin 0.3 Sodium Level 138 Potassium Level 2.8 Chloride Level 104 Carbon Dioxide Level 25.6 Anion Gap 8 Estimat Glomerular Filtration Rate 55 Total Creatine Kinase 82 Result Diagram: 10/30/17 1312 10/30/17 1312 Imaging MRI done at [facility] (Conclusions dictated here): MRI cervical spine with and without contrast October 29, 2017 Conclusion: 1. There are enhancing bone lesions within the occipital bone, C3 vertebral body, and C5 vertebral body highly suspicious for osseous metastatic disease. The patient indicates no known history of cancer. Therefore could consider a bone scan for complete evaluation of the bones or PET/CT for evaluation of a primary site of malignancy. In a patient of this age, breast cancer should be consideration and consider mammography. 2. Severe degenerative disc disease at C4-C5 and C5-C6 with posterior disc osteophyte complexes causing severe spinal canal stenosis and flattening of the cervical spinal cord. There is also moderate to severe neural foraminal narrowing at these levels, as above. MRI thoracic spine with and without contrast. October 29, 2017 Conclusion: 1. There are innumerable bone lesions throughout the thoracic and visualized upper lumbar spine. These enhancing bone lesions are highly suspicious for osseous metastatic disease. Bone scan could service all of the osseous structures or consider PET CT examination for localization of a primary tumor site. 2. There is severe kyphotic centered at T5 secondary to severe compression fracture of the T5 vertebral body. There are bone lesions consequently within the T4, T5, and T6 vertebral bodies and posterior elements causing mild spinal canal stenosis and mild increased signal/edema within the adjacent spinal cord. 3. The above findings were relayed to the ordering clinicians office on 2017 at 4:30 PM. Last Impressions Head CT 10/30/17 1304 Signed Impressions: Service Date/Time: Monday, October 30, 2017 14:20 - CONCLUSION: Intracranial contents are unremarkable. Scattered nonspecific lucencies in the calvarium. Ulises Mckoy MD FACR Chest CT 10/30/17 0000 Signed Impressions: Service Date/Time: Monday, October 30, 2017 14:26 - CONCLUSION: The examination demonstrates a destructive lesion involving what are probably the T5 and T6 vertebral bodies. There does appear to be significant canal compromise with epidural spread of disease. This is highly suspicious for malignancy. Dedicated MRI imaging is warranted for further assessment. This lesion would be amenable to CT-guided biopsy for sampling. Papa Mckoy MD Abdomen/Pelvis CT 10/30/17 0000 Signed Impressions: Service Date/Time: Monday, October 30, 2017 14:26 - CONCLUSION: 1. Punctate nonobstructing stones in the kidneys bilaterally. 2. CT examination is otherwise within normal limits for age. Papa Mckoy MD Caprini VTE Risk Assessment Caprini VTE Risk Assessment: Mod/High Risk (score >= 2) Caprini Risk Assessment Model Point Value = 1 Point Value = 2 Point Value = 3 Point Value = 5 Age 41-60 Minor surgery BMI > 25 kg/m2 Swollen legs Varicose veins or History of unexplained or recurrent spontaneous Oral contraceptives or hormone replacement Sepsis (< 1 month) Serious lung disease, including pneumonia (< 1 month) Abnormal pulmonary function Acute myocardial infarction Congestive heart failure (< 1 month) History of inflammatory bowel disease Medical patient at bed rest Age 61-74 Arthroscopic surgery Major open surgery (> 45 min) Laparoscopic surgery (> 45 min) Malignancy Confined to bed (> 72 hours) Immobilizing plaster cast Central venous access Age >= 75 History of VTE Family history of VTE Factor V Leiden Prothrombin [id number] Lupus anticoagulant Anticardiolipin antibodies Elevated serum homocysteine Heparin-induced thrombocytopenia Other congenital or acquired thrombophilia Stroke (< 1 month) Elective arthroplasty Hip, pelvis, or leg fracture Acute spinal cord injury (< 1 month) Prophylaxis Regimen Total Risk Factor Score Risk Level Prophylaxis Regimen 0-1 Low Early ambulation 2 Moderate Order ONE of the following: *Sequential Compression Device (SCD) *Heparin 5000 units SQ BID 3-4 Higher Order ONE of the following medications: *Heparin 5000 units SQ TID *Enoxaparin/Lovenox 40 mg SQ daily (WT < 150 kg, CrCl > 30 mL/min) *Enoxaparin/Lovenox 30 mg SQ daily (WT < 150 kg, CrCl > 10-29 mL/min) *Enoxaparin/Lovenox 30 mg SQ BID (WT < 150 kg, CrCl > 30 mL/min) AND/OR *Sequential Compression Device (SCD) 5 or more Highest Order ONE of the following medications: *Heparin 5000 units SQ TID (Preferred with Epidurals) *Enoxaparin/Lovenox 40 mg SQ daily (WT < 150 kg, CrCl > 30 mL/min) *Enoxaparin/Lovenox 30 mg SQ daily (WT < 150 kg, CrCl > 10-29 mL/min) *Enoxaparin/Lovenox 30 mg SQ BID (WT < 150 kg, CrCl > 30 mL/min) AND *Sequential Compression Device (SCD) Assessment and Plan Problem List: (1) Pathologic thoracic fracture ICD Code: M84.48XA - Pathological fracture, other site, initial encounter for fracture Status: Acute (2) Metastatic bone cancer ICD Code: C41.9 - Malignant neoplasm of bone and articular cartilage, unspecified Status: Acute (3) Cervical spinal stenosis ICD Code: M48.02 - Spinal stenosis, cervical region Assessment and Plan Ms. Salgado is a pleasant 62-year-old female with a history of chronic back pain, tobacco use who presented to the emergency department on the advice of her primary care provider due to abnormal MRI of her cervical and thoracic spine. MRI studies essentially shows multiple lesions throughout her thoracic, lumbar vertebrae. Cervical spine also shows occipital bone involvement as well. Patient has no history of any malignancy. No weight loss. - Probable metastatic bone lesions - T5 , T6 pathologic fractures - Metastatic epidural spread - Spinal canal stenosis. - Unknown primary. Multiple myeloma, breast cancer some of the possibilities. - CT head shows scattered nonspecific lucencies in the calvarium. - Will consult neurosurgery as well as medical oncology. - Pain control with acetaminophen, morphine IV, Percocet when necessary. - Start dexamethasone 4 mg IV every 6 hours. - Hypokalemia - We'll check magnesium level. If low will replace with magnesium sulfate. - Patient received 40 mEq of potassium chloride by mouth. - We'll provide potassium chloride 20 mEq daily for 3 days. Full code. Lovenox for DVT prophylaxis. Physician Certification 2 Midnight Certification Type: Admission for Inpatient Services Order for Inpatient Services The services are ordered in accordance with Medicare regulations or non- Medicare payer requirements, as applicable. In the case of services not specified as inpatient-only, they are appropriately provided as inpatient services in accordance with the 2-midnight benchmark. Estimated LOS (days): 3 days is the estimated time the patient will need to remain in the hospital, assuming treatment plan goals are met and no additional complications. Post-Hospital Plan: Not yet determined Problem Qualifiers (1) Pathologic thoracic fracture: Qualified Codes: M84.48XA - Pathological fracture, other site, initial encounter for fracture Monie Pride DO Oct 30, 2017 3:39 pm
[2017-10-30 15:43] VITALS: BP 172/76; PULSE 79; RESP 18; O2SAT 99
[2017-10-30] MEDS ORDERED: NALOXONE HCL 0.4 MG/ML AMP IV PUSH PRN (15:45)
[2017-10-30] MEDS ORDERED: ACETAMINOPHEN 325 MG TAB PO PRN (15:45)
[2017-10-30] MEDS ORDERED: TEMAZEPAM 15 MG CAP PO PRN (15:45)
[2017-10-30] MEDS ORDERED: BISACODYL 10 MG SUPP RECTAL PRN (15:45)
[2017-10-30] MEDS: SODIUM CHLOR 0.9% 1000 ML INJ 1,000 ML IV SCH (16:37)
[2017-10-30 17:37] VITALS: BP 190/81; PULSE 70; RESP 17; O2SAT 98
[2017-10-30] MEDS ORDERED: DO NOT ADM ANY ANTICOAGULANT DRUGS PRN (18:04)
[2017-10-30] MEDS: oxyCODONE/ACETAMINOPHEN 7.5 MG/325 MG TAB PO PRN ×2 (18:22→23:58)
[2017-10-30] MEDS: DEXAMETHASONE SOD PHOS 4 MG/ML VIAL IV PUSH SCH ×2 (18:22→23:58)
[2017-10-30 20:00] VITALS: BP 164/70; PULSE 70; RESP 18; TEMP 96.8; O2SAT 98
[2017-10-30] MEDS: SODIUM CHLORIDE 0.9% FLUSH 10 ML FLUSH IV FLUSH SCH (20:30)
[2017-10-30] MEDS: ENOXAPARIN SODIUM 40 MG/0.4 ML SYRINGE SQ SCH (20:34)
[2017-10-30] MEDS: MORPHINE SULFATE 4 MG/ML INJ IV PUSH PRN (20:42)
[2017-10-30 22:42] LABS: ALB/GLOB RATIO (SPE) 1.27 (1.39-2.23)
--- NOTE | 2017-10-30 22:52 | RADRPT ---
EXAM DATE/TIME: 10/30/2017 22:25 [place] COMPARISON: No previous studies available for comparison. INDICATIONS : Palpable mass/possible abscess. MEDICAL HISTORY : Hypertension. Possible metastatic bone cancer.Thoracic lesions with fracture. Measles. SURGICAL HISTORY : None. ENCOUNTER: Initial ACUITY: 1 day PAIN SCORE: 0/10 LOCATION: Left breast. FINDINGS: There is a hypoechoic shadowing mass in the left breast measuring up to 3.1 x 1.8 x 1 cm. Finding is suspicious for malignancy. Ultrasound core biopsy is recommended. CONCLUSION: 1. Mass in left breast measuring up to 3 cm in diameter. Ultrasound core biopsy recommended. Jovanny Sal MD on October 30, 2017 at 22:48 Board Certified Radiologist. This report was verified electronically.
[2017-10-31] VITALS: BP 147/64; PULSE 72; RESP 16; TEMP 96.7; O2SAT 95
[2017-10-31] MEDS: SODIUM CHLOR 0.9% 1000 ML INJ 1,000 ML IV SCH ×3 (04:25→22:00)
[2017-10-31] MEDS: DEXAMETHASONE SOD PHOS 4 MG/ML VIAL IV PUSH SCH ×3 (06:20→18:11)
[2017-10-31 07:32] LABS: AUTOMATED NEUTROPHIL # 7.3 TH/MM3 (1.8-7.7); BASOPHIL # 0.1 TH/MM3 (0-0.2); BASOPHIL % 0.7 % (0.0-2.0); HEMATOCRIT 47.9 % (35.0-46.0); HEMOGLOBIN 16.5 GM/DL (11.6-15.3); LYMPH % 13.3 % (9.0-44.0); LYMPHOCYTE # 1.1 TH/MM3 (1.0-4.8); MEAN CELL VOLUME 103.6 FL (80.0-100.0); MEAN CORPUSCULAR HEMOGLOBIN 35.7 PG (27.0-34.0); MEAN CORPUSCULAR HGB CONC 34.5 % (32.0-36.0); MEAN PLATELET VOLUME 9.2 FL (7.0-11.0); MONO % 1.2 % (0.0-8.0); MONOCYTE # 0.1 TH/MM3 (0-0.9); NEUT % 84.8 % (16.0-70.0); PLATELET COUNT 355 TH/MM3 (150-450); RED BLOOD COUNT 4.62 MIL/MM3 (4.00-5.30); RED CELL DISTRIBUTION WIDTH 15.1 % (11.6-17.2); WHITE BLOOD COUNT 8.6 TH/MM3 (4.0-11.0)
[2017-10-31 07:57] LABS: BICARBONATE 26.1 MEQ/L (21.0-32.0); CALCIUM 9.6 MG/DL (8.5-10.1); CREATININE 0.88 MG/DL (0.50-1.00)
[2017-10-31 08:00] VITALS: BP 141/69; PULSE 72; RESP 18; TEMP 96.7; O2SAT 97
[2017-10-31] MEDS: POTASSIUM CHLORIDE 20 MEQ CONTROLLED RELEASE TAB PO SCH (08:19)
[2017-10-31] MEDS: SODIUM CHLORIDE 0.9% FLUSH 10 ML FLUSH IV FLUSH SCH ×2 (08:20→21:07)
[2017-10-31] MEDS: oxyCODONE/ACETAMINOPHEN 7.5 MG/325 MG TAB PO PRN ×3 (08:20→21:07)
[2017-10-31] MEDS ORDERED: MORPHINE SULFATE 2 MG/ML INJ IV PUSH STA (09:11)
[2017-10-31] MEDS ORDERED: PNEUMOCOCCAL POLYVALENT INJ 25 MCG/0.5 ML SYR IM ONE (10:00)
--- NOTE | 2017-10-31 10:23 | HHI.PR ---
Subjective Remarks Patient reports persistent upper back pain. No other issues. Objective Vitals Vital Signs Date Time Temp Pulse Resp B/P (MAP) Pulse Ox O2 Delivery O2 Flow Rate FiO2 10/31/17 00:50 18 10/31/17 00:00 96.7 72 16 147/64 (91) 95 10/30/17 22:04 Room Air 10/30/17 20:45 19 10/30/17 20:00 96.8 70 18 164/70 (101) 98 10/30/17 17:37 70 17 190/81 (117) 98 Room Air 10/30/17 15:43 79 18 172/76 (108) 99 Room Air 10/30/17 13:53 76 17 188/79 (115) 98 Room Air 10/30/17 13:18 18 100 Room Air 10/30/17 12:41 97.3 83 18 163/72 (102) 99 Room Air I/O 10/30/17 10/30/17 10/30/17 10/31/17 10/31/17 10/31/17 07:00 15:00 23:00 07:00 15:00 23:00 Intake Total 480 ml 1220 ml Balance 480 ml 1220 ml Intake Oral 480 ml 220 ml IV Total 1000 ml # Voids 1 1 # Bowel Movements 0 0 Result Diagram: 10/31/17 0640 10/31/17 0648 Objective Remarks GENERAL: Elderly female in no apparent distress. CARDIOVASCULAR: Normal rate and regular rhythm without murmurs, gallops, or rubs. RESPIRATORY: Good respiratory efforts. Breath sounds equal and clear to auscultation bilaterally. GASTROINTESTINAL: Abdomen soft, non-tender, non-distended. Normal active bowel sounds MUSCULOSKELETAL: ENdorsed tenderness to palpation over thoracic spine and right upper posterior ribs. NEURO: Alert & Oriented x4 to person, place, time, situation. Moves all ext x4 PSYCH: Appropriate mood and affect. A/P Problem List: (1) Pathologic thoracic fracture ICD Code: M84.48XA - Pathological fracture, other site, initial encounter for fracture Status: Acute (2) Metastatic bone cancer ICD Code: C41.9 - Malignant neoplasm of bone and articular cartilage, unspecified Status: Acute (3) Cervical spinal stenosis ICD Code: M48.02 - Spinal stenosis, cervical region Assessment and Plan 62-year-old female with a history of chronic back pain, tobacco use who presented to the emergency department on the advice of her primary care provider due to abnormal MRI of her cervical and thoracic spine. MRI studies essentially shows multiple lesions throughout her thoracic, lumbar vertebrae. Cervical spine also shows occipital bone involvement as well. Patient has no history of any malignancy. No weight loss. - Probable metastatic bone lesions - T5 , T6 pathologic fractures - Metastatic epidural spread - Spinal canal stenosis. - Unknown primary. Breast mass noted on ultrasound. Per patient her last mammogram was over 15 years ago. - CT head shows scattered nonspecific lucencies in the calvarium. - Neurosurgery and Oncology following. - Will need biopsy. Tumor markers pending - Pain is not controlled. WIll schedule Oramorph. morphine IV, Percocet when necessary. - Continue dexamethasone 4 mg IV every 6 hours. - Hypokalemia -resolved. Full code. Lovenox for DVT prophylaxis. Problem Qualifiers (1) Pathologic thoracic fracture: Qualified Codes: M84.48XA - Pathological fracture, other site, initial encounter for fracture Awilda Woodall MD Oct 31, 2017 10:22
[2017-10-31 12:00] VITALS: BP 186/72; PULSE 77; RESP 18; TEMP 97.4; O2SAT 96
[2017-10-31 12:29] LABS: BACTERIA, URINE RARE /hpf; BILIRUBIN, URINE NEG (NEG); BLOOD, URINE NEG (NEG); CALCIUM OXALATE CRYSTALS,URINE FEW /hpf; GLUCOSE,URINE NEG (NEG); KETONE, URINE 10 mg/dL (NEG); MUCUS URINE FEW /lpf (OCC); NITRITE,URINE NEG (NEG); SQUAMOUS EPITHELIAL CELL URINE <1 /hpf (0-5); URINE COLOR YELLOW (YELLW/STRAW); URINE LEUKOCYTE ESTERASE NEG (NEG)
--- NOTE | 2017-10-31 12:39 | PD.ONC.PN ---
Subjective Subjective Remarks Afebrile overnight. ~seen at 9:20AM Patient resting in room in nad. Has pain in her neck which is not controlled with Percocet which she states she received an hour prior to my examination. No other complaints. Objective Data Date Time Temp Pulse Resp B/P (MAP) Pulse Ox O2 Delivery O2 Flow Rate FiO2 10/31/17 08:00 96.7 72 18 141/69 (93) 97 10/31/17 00:50 18 10/31/17 00:00 96.7 72 16 147/64 (91) 95 10/30/17 22:04 Room Air 10/30/17 20:45 19 10/30/17 20:00 96.8 70 18 164/70 (101) 98 10/30/17 17:37 70 17 190/81 (117) 98 Room Air 10/30/17 15:43 79 18 172/76 (108) 99 Room Air 10/30/17 13:53 76 17 188/79 (115) 98 Room Air 10/30/17 13:18 18 100 Room Air 10/30/17 12:41 97.3 83 18 163/72 (102) 99 Room Air 10/31/17 10/31/17 10/31/17 07:00 15:00 23:00 Intake Total 1220 ml Balance 1220 ml Result Diagram: 10/31/17 0640 10/31/17 0648 Laboratory Results Laboratory Tests Test 10/30/17 13:12 10/31/17 06:40 10/31/17 06:48 10/31/17 12:00 White Blood Count 10.0 TH/MM3 8.6 TH/MM3 Red Blood Count 4.85 MIL/MM3 4.62 MIL/MM3 Hemoglobin 17.6 GM/DL 16.5 GM/DL Hematocrit 49.6 % 47.9 % Mean Corpuscular Volume 102.1 FL 103.6 FL Mean Corpuscular Hemoglobin 36.3 PG 35.7 PG Mean Corpuscular Hemoglobin Concent 35.6 % 34.5 % Red Cell Distribution Width 14.9 % 15.1 % Platelet Count 337 TH/MM3 355 TH/MM3 Mean Platelet Volume 8.8 FL 9.2 FL Neutrophils (%) (Auto) 65.4 % 84.8 % Lymphocytes (%) (Auto) 22.4 % 13.3 % Monocytes (%) (Auto) 8.0 % 1.2 % Eosinophils (%) (Auto) 1.7 % 0.0 % Basophils (%) (Auto) 2.5 % 0.7 % Neutrophils # (Auto) 6.5 TH/MM3 7.3 TH/MM3 Lymphocytes # (Auto) 2.2 TH/MM3 1.1 TH/MM3 Monocytes # (Auto) 0.8 TH/MM3 0.1 TH/MM3 Eosinophils # (Auto) 0.2 TH/MM3 0.0 TH/MM3 Basophils # (Auto) 0.3 TH/MM3 0.1 TH/MM3 CBC Comment DIFF FINAL DIFF FINAL Differential Comment Prothrombin Time 9.9 SEC Prothromb Time International Ratio 1.0 RATIO Activated Partial Thromboplast Time 24.5 SEC Blood Urea Nitrogen 19 MG/DL 17 MG/DL Creatinine 1.02 MG/DL 0.88 MG/DL Random Glucose 130 MG/DL 122 MG/DL Total Protein 7.7 GM/DL Albumin 3.6 GM/DL Calcium Level 10.0 MG/DL 9.6 MG/DL Alkaline Phosphatase 105 U/L Aspartate Amino Transf (AST/SGOT) 27 U/L Alanine Aminotransferase (ALT/SGPT) 13 U/L Total Bilirubin 0.3 MG/DL Sodium Level 138 MEQ/L 139 MEQ/L Potassium Level 2.8 MEQ/L 3.7 MEQ/L Chloride Level 104 MEQ/L 106 MEQ/L Carbon Dioxide Level 25.6 MEQ/L 26.1 MEQ/L Anion Gap 8 MEQ/L 7 MEQ/L Estimat Glomerular Filtration Rate 55 ML/MIN 65 ML/MIN Magnesium Level 2.1 MG/DL Total Creatine Kinase 82 U/L Albumin/Globulin Ratio 1.27 [id number]-[id number] 0.30 GM/DL Mdigj-0-Nochtsnyt 0.98 GM/DL Beta Globulins 0.77 GM/DL Gamma Globulins 1.25 GM/DL CA 15-3 Antigen 67.9 U/ML Urine Color YELLOW Urine Turbidity HAZY Urine pH 6.0 Urine Specific Omega 1.026 Urine Protein TRACE mg/dL Urine Glucose (UA) NEG mg/dL Urine Ketones 10 mg/dL Urine Occult Blood NEG Urine Nitrite NEG Urine Bilirubin NEG Urine Urobilinogen LESS THAN 2.0 MG/DL Urine Leukocyte Esterase NEG Urine RBC LESS THAN 1 /hpf Urine WBC LESS THAN 1 /hpf Urine Squamous Epithelial Cells <1 /hpf Urine Calcium Oxalate Crystals FEW /hpf Urine Bacteria RARE /hpf Urine Mucus FEW /lpf Microscopic Urinalysis Comment CULT NOT INDICATED Imaging Studies Last Impressions Breast Ultrasound 10/30/17 2213 Signed Impressions: Service Date/Time: Monday, October 30, 2017 22:25 - CONCLUSION: 1. Mass in left breast measuring up to 3 cm in diameter. Ultrasound core biopsy recommended. Jovanny Sal MD Head CT 10/30/17 1304 Signed Impressions: Service Date/Time: Monday, October 30, 2017 14:20 - CONCLUSION: Intracranial contents are unremarkable. Scattered nonspecific lucencies in the calvarium. Ulises Mckoy MD FACR Chest CT 10/30/17 0000 Signed Impressions: Service Date/Time: Monday, October 30, 2017 14:26 - CONCLUSION: The examination demonstrates a destructive lesion involving what are probably the T5 and T6 vertebral bodies. There does appear to be significant canal compromise with epidural spread of disease. This is highly suspicious for malignancy. Dedicated MRI imaging is warranted for further assessment. This lesion would be amenable to CT-guided biopsy for sampling. Papa Mckoy MD Abdomen/Pelvis CT 10/30/17 0000 Signed Impressions: Service Date/Time: Monday, October 30, 2017 14:26 - CONCLUSION: 1. Punctate nonobstructing stones in the kidneys bilaterally. 2. CT examination is otherwise within normal limits for age. Papa Mckoy MD Administered Medications Medications (Trade) Dose Ordered Sig/Sandra Route PRN Reason Start Time Stop Time Status Last Admin Dose Admin Sodium Chloride 1,000 ml @ 100 mls/hr Q10H IV 10/30/17 16:00 10/31/17 04:25 Dexamethasone Sodium Phosphate (Decadron Inj) 4 mg Q6HR IV PUSH 10/30/17 18:00 10/31/17 06:20 Oxycodone/ Acetaminophen (Percocet 7.5-325 Mg) 1 tab Q6H PRN PO PAIN SCALE 5 TO 10 10/30/17 16:15 10/31/17 08:20 Morphine Sulfate (Morphine Inj) 4 mg Q3H PRN IV PUSH BREAKTHROUGH PAIN 10/30/17 16:15 10/30/17 20:42 Potassium Chloride (KCl) 20 meq DAILY PO 10/31/17 09:00 11/03/17 08:59 10/31/17 08:19 Enoxaparin Sodium (Lovenox Inj) 40 mg Q24H SQ 10/30/17 19:00 10/30/17 20:34 Objective Remarks GENERAL: Middle aged female, sitting up in bed, appears uncomfortable. SKIN: Warm and dry. HEAD: Normocephalic. EYES: No injection or drainage. NECK: Supple, trachea midline. CARDIOVASCULAR: Regular rate and rhythm. RESPIRATORY: Breath sounds equal bilaterally. No accessory muscle use. GASTROINTESTINAL: Abdomen soft, non-tender, nondistended. EXTREMITIES: No cyanosis NEUROLOGICAL: awake and alert. normal speech. moving all extremities. Assessment/Plan Problem List: (1) Breast mass ICD Codes: N63.0 - Unspecified lump in unspecified breast Assessment 62y/o female with breast mass and suspected spinal metastatic lesions. h/o chronic back pain. ++chronic tobacco use Plan 1. await neurosurgery evaluation. 2. after neurosurgery evaluation, will plan to consult general surgery for breast mass. 3. give stat dose of Morphine. agree with oramorph started by Dr. Woodall this AM. Attending Statement The exam, history, and the medical decision-making described in the above note were completed with the assistance of the mid-level provider. I reviewed and agree with the findings presented. I attest that I had a [id number] encounter with the patient on the same day, and personally performed and documented my assessment and findings in the medical record. Pt seen and examined. L breast US show mass, no fluid collection. Await NS consult, maybe able to get pathologic specimen at time of surgery. Pain medication being adjusted. Mayte Conrad Oct 31, 2017 12:39 Renetta Avilez MD Oct 31, 2017 14:01
--- NOTE | 2017-10-31 12:40 | MB ---
cc: J CARLOS MALHOTRA M.D. DATE OF CONSULTATION: 10/30/2017. REASON FOR CONSULTATION: Dr. Pride requests consultation for Ms. Salgado regarding vertebral body compression fracture suspicious for metastatic cancer. REFERRING PHYSICIAN: Dr. Pride. HISTORY OF PRESENT ILLNESS: Ms. Salgado is a 62-year-old woman with no significant past history. She reports having mastitis of the left breast many years ago. She denies needing to see a physician and that she enjoys general good health. She has not had a mammogram for many years. She does not know if she has osteoporosis. She was seen in the emergency room on September 29, 2017 for upper back pain. She denies any trauma. She was sitting on her porch when she developed burning pain between the shoulder blades. She was seen by her primary physician who coordinated MRI of the cervical and thoracic spine on 10/29/2017. The findings from the cervical spine MRI shows enhancing bone lesions within the occipital bone, C3 vertebral body, C5 vertebral body suspicious for osseous metastatic disease. She has severe degenerative disk disease at C4-5 and C5-6. There is severe neural foraminal narrowing at these levels. The MRI of the thoracic spine showed innumerable bone lesions throughout the thoracic spine and the upper lumbars. There is severe kyphotic hyper-angulation at T5 secondary to severe compression fracture of the T5 vertebral body. There is mild canal stenosis and increased edema of the adjacent cord. Because of the above thoracic MRI findings, she was referred to the emergency room. She was seen by Dr. Amilcar Vicente. She was admitted and placed on steroids and neurosurgery consulted. Hematology/Oncology is consulted for the suspicion of metastatic cancer. Laboratory evaluation reveals a hemoglobin of 16.1 in September and 17.6 on admission. Renal function is normal. Liver function is normal. Acid pep is pending. Potassium is decreased at 2.8. Her serum calcium is normal. Ms. Salgado denies any precipitating events or symptoms. She complains of some stress incontinence. She has normal regular bowel movements. She denies any weakness in the legs. Her most pressing symptom is the upper back pain. PAST MEDICAL HISTORY: Mastitis of the left breast. PAST SURGICAL HISTORY: None. SOCIAL HISTORY: She smokes a pack a day. She has no intention of quitting. She denies any alcohol or illicit drug use. FAMILY HISTORY: Mother of a massive stroke in her late 60s. Father's past history is unknown. She lives with her brother who has asthma. ALLERGIES: NO KNOWN DRUG ALLERGIES. CURRENT MEDICATIONS: 1. Enoxaparin 2. Decadron. 3. Percocet. 4. Morphine. 5. Ondansetron p.r.n. PHYSICAL EXAMINATION: VITAL SIGNS: Temperature of 96.8, heart rate 70, respiratory rate 18, blood pressure 164/70, saturation 98%. GENERAL: Ms. Salgado is a well-developed, well-nourished woman who looks older than stated age. HEAD, EYES, EARS, NOSE, THROAT: Her pupils are round, reactive to light and accommodation. Oropharynx is clear. NECK: Neck is supple. She looks uncomfortable sitting up with head of bed 45 degrees. LUNGS: Her lungs were clear anteriorly. CARDIOVASCULAR: Exam reveals normal rate, rhythm. ABDOMEN: Abdomen is benign. EXTREMITIES: Lower extremities with no edema. NEUROLOGIC: Exam is nonfocal. BREAST EXAMINATION: No supraclavicular or axillary adenopathy. The right breast is negative. The left breast with a palpable 3 to 4 cm mass at the twelve o'clock position. She reports that this mass has been present there for several years. It occurred after her mastitis. LABORATORY DATA: As described above. ASSESSMENT AND PLAN: Ms. Salgado is a 62-year-old woman with no significant past history. She has had no prior mammograms. She presents with multiple bony lesions. I had a lengthy discussion with Ms. Salgado regarding considerations for cancer include that of lung cancer as well as breast cancer given that she is a woman. CT scan of the abdomen did not show any other site of metastatic disease. CT scan of the chest including a CT angiogram back in September show 0.8 nodules. It is unimpressive for primary bronchogenic carcinoma. With the findings of left breast mass is suspicious for metastatic breast cancer. She reports that the mass in the left breast has been present since her previous mastitis. This could very well be a primary. This is seen on images of the CT scan of the chest. Ultrasound of the left breast will be coordinated. CT-guided biopsy will be performed if indeed suspicious finding. She is pending neurosurgery consultation as to the best management of her thoracic spine vertebral body compression fracture. She will need stability. This may be another source for pathologic confirmation of her cancer. Further recommendation dependent on the pathology report. With her long history of smoking, suspect she has underlying COPD with erythrocytosis. She has a hemoglobin above the normal range in both settings. The differential includes erythrocytosis from polycythemia vera. More likely that the erythrocytosis is secondary to her long history of smoking. Differential includes is a plasma cell disorder or multiple myeloma. Serum protein electrophoresis obtained. The pathology from a breast biopsy or biopsy of the vertebral body would be helpful in determining the nature of the above. Further recommendations pending on the final pathology. Her questions were answered to her satisfaction. J Carlos Malhotra MD RAD/JCC /10:03 PM /12:23 PM
[2017-10-31] MEDS: MORPHINE SULFATE 15 MG CONTROLLED RELEASE TAB PO SCH ×2 (12:59→18:12)
[2017-10-31 13:20] VITALS: O2SAT 96
--- NOTE | 2017-10-31 14:30 | EKG ---
Date Performed: 10/30/2017 Time Performed: 13:59:18 PTAGE: 62 years EKG: Sinus rhythm NONSPECIFIC ST & T-WAVE ABNORMALITY BORDERLINE ECG Since PREVIOUS TRACING , no significant change noted PREVIOUS TRACIN09/29/2016 18.51 DOCTOR: Lalo Paez Interpretating Date/Time 10/31/2017 14:28:09
[2017-10-31 16:00] VITALS: BP 204/92; PULSE 74; RESP 18; TEMP 98; O2SAT 97
--- NOTE | 2017-10-31 16:46 | MB ---
cc: JULIOCESAR KING MD DATE OF CONSULTATION: 10/31/2017. REASON FOR CONSULTATION / CHIEF COMPLAINT: Pain. HISTORY OF PRESENT ILLNESS: This is a 62-year-old female patient without previous significant medical history. She presents at the request of her primary care physician because of continued pain in her back. The patient apparently was seen by her primary care physician who ordered an MRI of the cervical and thoracic spine and because of abnormal findings, she was sent to the emergency room here at [facility] for further evaluation. The patient reports having pain for approximately one month in the mid-back. She denies any neck pain and denies any lower back pain. She denies any radiation of pain to the arms or any radiation of pain into the legs. She denies any numbness. She reports that she is ambulatory without any problems. The patient reports she does not regularly see a physician, and denies any other medical problems. PAST MEDICAL HISTORY: Remarkable for mastitis of the left breast. PAST SURGICAL HISTORY: Unremarkable. SOCIAL HISTORY: She reports that she smokes a pack of cigarettes a day. There is no history of alcohol use or illicit drug use. FAMILY HISTORY: The family history reveals that the mother of a massive stroke in her late 60s. The father's history is unknown. She lives with her brother who has asthma. ALLERGIES: SHE HAS NO KNOWN DRUG ALLERGIES. MEDICATIONS: She takes no medications. PHYSICAL EXAMINATION: VITAL SIGNS: Temperature of 96.8, heart rate of 70, respiratory rate of 18, blood pressure of 160/70. GENERAL: The patient is well-developed, well-nourished and in moderate pain. HEAD, EYES, EARS, NOSE, THROAT: Unremarkable. NECK: The neck is supple. She has good carotid pulses bilaterally. CHEST: Symmetric. There is marked tenderness over the ribcage on the right side. BACK: No tenderness in the spine per se. She appears to be somewhat kyphotic. LUNGS: Clear. HEART: Regular rhythm with normal heart sounds. ABDOMEN: Abdomen soft and nontender. EXTREMITIES: Clear. SKIN: Clear. NEUROLOGIC: Neurologically, she is alert and awake. She follows commands well. She is oriented x3. Affect is normal. Speech is fluent. Cranial nerves II through XII are intact. Motor exam is 5+/5, although she is having some problems with the left arm due to pain. Sensory exam is intact to touch. Deep tendon reflexes are 3+ at the knees, 1+ at the ankles, 1+ at the biceps and 1+ at the triceps. She has a silent Babinski bilaterally. IMAGING STUDIES: MRI reports of the cervical and thoracic spine are consistent with multiple lesions in the spine compatible with metastatic disease. X-rays were not reviewed personally because they are not available at the present time. Recent mammogram apparently shows a possible lesion in the breast. IMPRESSION: Possible metastatic disease. RECOMMENDATIONS: 1. Obtain the x-rays from the original facility. 2. Consult oncology for further direction. She may need to have a breast biopsy to determine if this is indeed cancerous. Further recommendations will be made after the initial evaluation and review of the MRI of the spine. She also may need an MRI of the lumbar spine. MD SHELTON Mancia/LUPILLO /2:27 PM /3:47 PM
[2017-10-31] MEDS: ENOXAPARIN SODIUM 40 MG/0.4 ML SYRINGE SQ SCH (18:11)
[2017-10-31] MEDS: MORPHINE SULFATE 4 MG/ML INJ IV PUSH PRN (18:12)
[2017-10-31 20:00] VITALS: BP 158/77; PULSE 77; RESP 15; TEMP 96.8; O2SAT 95
[2017-11-01] VITALS (7 sets, daily range): BP systolic 161–185; BP diastolic 69–77; PULSE 59–72; RESP 15–16; TEMP 96.1–97.6; O2SAT 93–97
[2017-11-01] MEDS: cloNIDine HCL 0.1 MG TAB PO PRN ×2 (00:26→11:19)
[2017-11-01] MEDS: DEXAMETHASONE SOD PHOS 4 MG/ML VIAL IV PUSH SCH ×4 (00:26→17:17)
[2017-11-01] MEDS: MORPHINE SULFATE 4 MG/ML INJ IV PUSH PRN ×3 (00:26→21:39)
[2017-11-01] MEDS: MORPHINE SULFATE 15 MG CONTROLLED RELEASE TAB PO SCH ×3 (03:55→18:34)
[2017-11-01] MEDS: oxyCODONE/ACETAMINOPHEN 7.5 MG/325 MG TAB PO PRN ×2 (05:42→18:35)
[2017-11-01] MEDS: SODIUM CHLOR 0.9% 1000 ML INJ 1,000 ML IV SCH ×2 (08:00→18:00)
[2017-11-01] MEDS: SODIUM CHLORIDE 0.9% FLUSH 10 ML FLUSH IV FLUSH SCH ×2 (09:00→21:39)
[2017-11-01] MEDS: POTASSIUM CHLORIDE 20 MEQ CONTROLLED RELEASE TAB PO SCH (09:28)
--- NOTE | 2017-11-01 11:34 | PD.ONC.PN ---
Subjective Subjective Remarks Afebrile overnight. Patient resting in room eating breakfast. late entry patient seen at 9AM. Patient states she still has pain in neck and some pain radiating down left arm. pain is controlled on Percocet and morphine, she states. Objective Data Date Time Temp Pulse Resp B/P (MAP) Pulse Ox O2 Delivery O2 Flow Rate FiO2 11/01/17 08:00 97.0 59 16 184/76 (112) 97 11/01/17 04:00 96.1 63 15 161/73 (102) 93 11/01/17 00:00 96.2 72 162/69 (100) 93 10/31/17 20:00 96.8 77 15 158/77 (104) 95 10/31/17 16:00 98.0 74 18 204/92 (129) 97 10/31/17 13:20 96 10/31/17 12:00 97.4 77 18 186/72 (110) 96 Result Diagram: 10/31/17 0640 10/31/17 0648 Laboratory Results Laboratory Tests Test 10/31/17 12:00 Urine Color YELLOW Urine Turbidity HAZY Urine pH 6.0 Urine Specific [place] 1.026 Urine Protein TRACE mg/dL Urine Glucose (UA) NEG mg/dL Urine Ketones 10 mg/dL Urine Occult Blood NEG Urine Nitrite NEG Urine Bilirubin NEG Urine Urobilinogen LESS THAN 2.0 MG/DL Urine Leukocyte Esterase NEG Urine RBC LESS THAN 1 /hpf Urine WBC LESS THAN 1 /hpf Urine Squamous Epithelial Cells <1 /hpf Urine Calcium Oxalate Crystals FEW /hpf Urine Bacteria RARE /hpf Urine Mucus FEW /lpf Microscopic Urinalysis Comment CULT NOT INDICATED Administered Medications Medications (Trade) Dose Ordered Sig/Sandra Route PRN Reason Start Time Stop Time Status Last Admin Dose Admin Sodium Chloride 1,000 ml @ 100 mls/hr Q10H IV 10/30/17 16:00 10/31/17 04:25 Sodium Chloride (NS Flush) 2 ml BID IV FLUSH 10/30/17 21:00 11/01/17 09:00 Dexamethasone Sodium Phosphate (Decadron Inj) 4 mg Q6HR IV PUSH 10/30/17 18:00 11/01/17 11:19 Oxycodone/ Acetaminophen (Percocet 7.5-325 Mg) 1 tab Q6H PRN PO PAIN SCALE 5 TO 10 10/30/17 16:15 11/01/17 05:42 Morphine Sulfate (Morphine Inj) 4 mg Q3H PRN IV PUSH BREAKTHROUGH PAIN 10/30/17 16:15 11/01/17 09:28 Potassium Chloride (KCl) 20 meq DAILY PO 10/31/17 09:00 11/03/17 08:59 11/01/17 09:28 Enoxaparin Sodium (Lovenox Inj) 40 mg Q24H SQ 10/30/17 19:00 10/31/17 18:11 Morphine Sulfate (Oramorph Sr) 15 mg Q8H PO 10/31/17 11:00 11/01/17 11:19 Clonidine (Catapres) 0.1 mg Q6H PRN PO SBP> OR = 180, DBP> OR = 100 10/31/17 21:45 11/01/17 11:19 Objective Remarks GENERAL: Middle aged female, upright in bed in nad. SKIN: Warm and dry. HEAD: Normocephalic. EYES: No injection or drainage. NECK: Supple, trachea midline. CARDIOVASCULAR: Regular rate and rhythm. RESPIRATORY: Breath sounds equal bilaterally. No accessory muscle use. GASTROINTESTINAL: Abdomen soft, non-tender, nondistended. EXTREMITIES: No cyanosis NEUROLOGICAL: awake, alert. moving all extremities. facial movements symmetric. Assessment/Plan Problem List: (1) Breast mass ICD Codes: N63.0 - Unspecified lump in unspecified breast Assessment 62y/o female with breast mass and suspected spinal metastatic lesions. h/o chronic back pain. ++chronic tobacco use Plan 1. continue Percocet/morphine. 2. await Neurosurgical intervention. patient will need biopsy of spinal mass. 3. face sheet faxed to new patient referrals. Attending Statement The exam, history, and the medical decision-making described in the above note were completed with the assistance of the mid-level provider. I reviewed and agree with the findings presented. I attest that I had a [id number] encounter with the patient on the same day, and personally performed and documented my assessment and findings in the medical record. Discussed with NS Dr. Romeo and reviewed C and T spine MRI. Pt will require surgery for Tspine, Dr. Romeo defer to Dr. Bell to return tomorrow. c.o back pain,no neurologic deficit. Pending pathologic dx from surgery. Discussed consulting with surgery for L breast mass. Unable to exclude possibility of two primaries. Need biopsy to confirm dx. Cont pain management w/ bowel regimen. Mayte Conrad Nov 01, 2017 11:34 Renetta Avilez MD Nov 01, 2017 23:46
--- NOTE | 2017-11-01 14:46 | HHI.PR ---
Subjective Remarks Patient reports her pain is better controlled today but she is still having significant discomfort. Does not want to increase pain medication so she does not get too sleepy. Objective Vitals Vital Signs Date Time Temp Pulse Resp B/P (MAP) Pulse Ox O2 Delivery O2 Flow Rate FiO2 11/01/17 08:00 97.0 59 16 184/76 (112) 97 11/01/17 04:00 96.1 63 15 161/73 (102) 93 11/01/17 00:00 96.2 72 162/69 (100) 93 10/31/17 20:00 96.8 77 15 158/77 (104) 95 10/31/17 16:00 98.0 74 18 204/92 (129) 97 I/O 10/31/17 10/31/17 10/31/17 11/01/17 11/01/17 11/01/17 07:00 15:00 23:00 07:00 15:00 23:00 Intake Total 1220 ml 1500 ml Balance 1220 ml 1500 ml Intake Oral 220 ml 1500 ml IV Total 1000 ml # Voids 1 3 # Bowel Movements 0 Result Diagram: 10/31/17 0640 10/31/17 0648 Objective Remarks GENERAL: Elderly female in no apparent distress. CARDIOVASCULAR: Normal rate and regular rhythm without murmurs, gallops, or rubs. RESPIRATORY: Good respiratory efforts. Breath sounds equal and clear to auscultation bilaterally. GASTROINTESTINAL: Abdomen soft, non-tender, non-distended. Normal active bowel sounds MUSCULOSKELETAL: Endorsed tenderness to palpation over thoracic spine and right upper posterior ribs. NEURO: Alert & Oriented x4 to person, place, time, situation. Moves all ext x4 PSYCH: Appropriate mood and affect. A/P Problem List: (1) Pathologic thoracic fracture ICD Code: M84.48XA - Pathological fracture, other site, initial encounter for fracture Status: Acute (2) Metastatic bone cancer ICD Code: C41.9 - Malignant neoplasm of bone and articular cartilage, unspecified Status: Acute (3) Cervical spinal stenosis ICD Code: M48.02 - Spinal stenosis, cervical region Assessment and Plan 62-year-old female with a history of chronic back pain, tobacco use who presented to the emergency department on the advice of her primary care provider due to abnormal MRI of her cervical and thoracic spine. MRI studies essentially shows multiple lesions throughout her thoracic, lumbar vertebrae. Cervical spine also shows occipital bone involvement as well. Patient has no history of any malignancy. No weight loss. - Probable metastatic bone lesions - T5 , T6 pathologic fractures - Metastatic epidural spread - Spinal canal stenosis. - Unknown primary. Breast mass noted on ultrasound. Per patient her last mammogram was over 15 years ago. - CT head shows scattered nonspecific lucencies in the calvarium. - Neurosurgery and Oncology following. - Will need biopsy. Tumor markers pending - Pain better controlled. Continue schedule Oramorph. morphine IV, Percocet when necessary. - Continue dexamethasone 4 mg IV every 6 hours. - Hypokalemia -resolved. Full code. Lovenox for DVT prophylaxis. Problem Qualifiers (1) Pathologic thoracic fracture: Qualified Codes: M84.48XA - Pathological fracture, other site, initial encounter for fracture Awilda Woodall MD Nov 01, 2017 14:46
--- NOTE | 2017-11-01 15:42 | HHI.NSPN ---
History Chief Complaint: Pain Interval History No significant change since her last visit. Pain somewhat better controlled Exam Results Vital Signs Date Time Temp Pulse Resp B/P (MAP) Pulse Ox O2 Delivery O2 Flow Rate FiO2 11/01/17 12:00 97.6 61 16 180/77 (111) 96 10/30/17 22:04 Room Air Physical Examination Patient is able to move extremities well she remains alert and awake Lab, Micro, Other Results Was able to review MRI of the thoracic and cervical spine with Dr. Rios Patient has multiple metastatic disease. At the T5-6 level there is significant involvement with a kyphotic deformity and potential for canal compromise MRI of the cervical spine shows degenerative changes with evidence of spinal stenosis and some involvement with metastatic disease Medical Decision Making Impression and Plan Metastatic disease of the spine. Surgery at the T5-6 level may need to be entertained Stenosis in the cervical area may also need to be entertained at a later date. This has been discussed with Dr. Rios. May need biopsy of the spine or breast Jamaal Romeo MD Nov 01, 2017 15:42
[2017-11-01] MEDS ORDERED: CALCIUM CARBONATE 500 MG CHEWABLE TAB CHEW PRN (16:00)
[2017-11-01] MEDS: PANTOPRAZOLE SOD 40 MG DELAYED RELEASE TAB PO SCH (17:16)
[2017-11-01] MEDS: amLODIPine BESYLATE 5 MG TAB PO SCH (17:16)
[2017-11-01] MEDS: ENOXAPARIN SODIUM 40 MG/0.4 ML SYRINGE SQ SCH (19:16)
[2017-11-02] VITALS: BP 142/65; PULSE 53; RESP 15; TEMP 96.1; O2SAT 94
[2017-11-02] MEDS: DEXAMETHASONE SOD PHOS 4 MG/ML VIAL IV PUSH SCH ×4 (00:01→17:40)
[2017-11-02] MEDS: MORPHINE SULFATE 15 MG CONTROLLED RELEASE TAB PO SCH ×3 (03:18→18:37)
[2017-11-02] MEDS: SODIUM CHLOR 0.9% 1000 ML INJ 1,000 ML IV SCH (04:00)
[2017-11-02 08:00] VITALS: BP 157/69; PULSE 79; RESP 18; TEMP 97.1; O2SAT 94
[2017-11-02] MEDS: SODIUM CHLORIDE 0.9% FLUSH 10 ML FLUSH IV FLUSH SCH ×2 (09:00→20:37)
[2017-11-02] MEDS: PANTOPRAZOLE SOD 40 MG DELAYED RELEASE TAB PO SCH (09:26)
[2017-11-02] MEDS: amLODIPine BESYLATE 5 MG TAB PO SCH (09:27)
[2017-11-02] MEDS: POTASSIUM CHLORIDE 20 MEQ CONTROLLED RELEASE TAB PO SCH (09:27)
[2017-11-02] MEDS: oxyCODONE/ACETAMINOPHEN 7.5 MG/325 MG TAB PO PRN ×2 (09:31→20:25)
[2017-11-02 12:00] VITALS: BP 140/70; PULSE 78; RESP 17; TEMP 98.1; O2SAT 95
[2017-11-02 12:51] LABS: HEMATOCRIT 47.3 % (35.0-46.0); HEMOGLOBIN 16.1 GM/DL (11.6-15.3); MEAN CELL VOLUME 103.5 FL (80.0-100.0); MEAN CORPUSCULAR HEMOGLOBIN 35.2 PG (27.0-34.0); MEAN PLATELET VOLUME 9.8 FL (7.0-11.0); RED BLOOD COUNT 4.57 MIL/MM3 (4.00-5.30); RED CELL DISTRIBUTION WIDTH 14.7 % (11.6-17.2)
[2017-11-02 13:09] LABS: BICARBONATE 27.7 MEQ/L (21.0-32.0); CALCIUM 10.5 MG/DL (8.5-10.1); CREATININE 0.81 MG/DL (0.50-1.00)
[2017-11-02 13:25] LABS: PLATELET COUNT 245 TH/MM3 (150-450)
--- NOTE | 2017-11-02 13:31 | HHI.PR ---
Subjective Remarks Patient reports persistent right posterior thoracic pain. Morphine is helping. She does not want to increase pain medication at this time. Objective Vitals Vital Signs Date Time Temp Pulse Resp B/P (MAP) Pulse Ox O2 Delivery O2 Flow Rate FiO2 11/02/17 08:00 97.1 79 18 157/69 (98) 94 11/02/17 00:00 96.1 53 15 142/65 (90) 94 11/01/17 20:00 97.0 66 16 161/71 (101) 95 11/01/17 17:50 96 21 11/01/17 16:00 97.4 66 16 185/77 (113) 96 I/O 11/01/17 11/01/17 11/01/17 11/02/17 11/02/17 11/02/17 07:00 15:00 23:00 07:00 15:00 23:00 Intake Total 1000 ml Balance 1000 ml Intake Oral 1000 ml # Voids 5 Result Diagram: 11/02/17 1216 11/02/17 1216 Objective Remarks GENERAL: Elderly female in no apparent distress. CARDIOVASCULAR: Normal rate and regular rhythm without murmurs, gallops, or rubs. RESPIRATORY: Good respiratory efforts. Breath sounds equal and clear to auscultation bilaterally. GASTROINTESTINAL: Abdomen soft, non-tender, non-distended. Normal active bowel sounds MUSCULOSKELETAL: Endorsed tenderness to palpation over thoracic spine and right upper posterior ribs. NEURO: Alert & Oriented x4 to person, place, time, situation. Moves all ext x4 PSYCH: Appropriate mood and affect. A/P Problem List: (1) Pathologic thoracic fracture ICD Code: M84.48XA - Pathological fracture, other site, initial encounter for fracture Status: Acute (2) Metastatic bone cancer ICD Code: C41.9 - Malignant neoplasm of bone and articular cartilage, unspecified Status: Acute (3) Cervical spinal stenosis ICD Code: M48.02 - Spinal stenosis, cervical region Assessment and Plan 62-year-old female with a history of chronic back pain, tobacco use who presented to the emergency department on the advice of her primary care provider due to abnormal MRI of her cervical and thoracic spine. MRI studies essentially shows multiple lesions throughout her thoracic, lumbar vertebrae. Cervical spine also shows occipital bone involvement as well. Patient has no history of any malignancy. No weight loss. - Probable metastatic bone lesions - T5 , T6 pathologic fractures - Metastatic epidural spread - Spinal canal stenosis. - Unknown primary. Breast mass noted on ultrasound. Per patient her last mammogram was over 15 years ago. - CT head shows scattered nonspecific lucencies in the calvarium. - Neurosurgery and Oncology following. - Will need biopsy. Further plans per neurosurgery and oncology regarding biopsy - Pain better controlled. Continue schedule Oramorph. morphine IV, Percocet when necessary. - Continue dexamethasone 4 mg IV every 6 hours. - Hypokalemia -resolved. Full code. Lovenox for DVT prophylaxis. Problem Qualifiers (1) Pathologic thoracic fracture: Qualified Codes: M84.48XA - Pathological fracture, other site, initial encounter for fracture Awilda Woodall MD Nov 02, 2017 13:31
--- NOTE | 2017-11-02 15:28 | PD.ONC.PN ---
Subjective Subjective Remarks Afebrile Patient has just returned from CAT scan Still waiting to see Dr. Bell Still with significant back pain Objective Data Date Time Temp Pulse Resp B/P (MAP) Pulse Ox O2 Delivery O2 Flow Rate FiO2 11/02/17 08:00 97.1 79 18 157/69 (98) 94 11/02/17 00:00 96.1 53 15 142/65 (90) 94 11/01/17 20:00 97.0 66 16 161/71 (101) 95 11/01/17 17:50 96 21 11/01/17 16:00 97.4 66 16 185/77 (113) 96 Result Diagram: 11/02/17 1216 11/02/17 1216 Laboratory Results Laboratory Tests Test 11/02/17 12:16 White Blood Count 16.0 TH/MM3 Red Blood Count 4.57 MIL/MM3 Hemoglobin 16.1 GM/DL Hematocrit 47.3 % Mean Corpuscular Volume 103.5 FL Mean Corpuscular Hemoglobin 35.2 PG Mean Corpuscular Hemoglobin Concent 34.0 % Red Cell Distribution Width 14.7 % Platelet Count 245 TH/MM3 Mean Platelet Volume 9.8 FL Blood Urea Nitrogen 24 MG/DL Creatinine 0.81 MG/DL Random Glucose 102 MG/DL Calcium Level 10.5 MG/DL Sodium Level 137 MEQ/L Potassium Level 3.9 MEQ/L Chloride Level 101 MEQ/L Carbon Dioxide Level 27.7 MEQ/L Anion Gap 8 MEQ/L Estimat Glomerular Filtration Rate 71 ML/MIN Administered Medications Medications (Trade) Dose Ordered Sig/Sandra Route PRN Reason Start Time Stop Time Status Last Admin Dose Admin Sodium Chloride (NS Flush) 2 ml BID IV FLUSH 10/30/17 21:00 11/02/17 09:00 Dexamethasone Sodium Phosphate (Decadron Inj) 4 mg Q6HR IV PUSH 10/30/17 18:00 11/02/17 11:14 Oxycodone/ Acetaminophen (Percocet 7.5-325 Mg) 1 tab Q6H PRN PO PAIN SCALE 5 TO 10 10/30/17 16:15 11/02/17 09:31 Morphine Sulfate (Morphine Inj) 4 mg Q3H PRN IV PUSH BREAKTHROUGH PAIN 10/30/17 16:15 11/01/17 21:39 Potassium Chloride (KCl) 20 meq DAILY PO 10/31/17 09:00 11/03/17 08:59 11/02/17 09:27 Enoxaparin Sodium (Lovenox Inj) 40 mg Q24H SQ 10/30/17 19:00 11/01/17 19:16 Morphine Sulfate (Oramorph Sr) 15 mg Q8H PO 10/31/17 11:00 11/02/17 11:14 Clonidine (Catapres) 0.1 mg Q6H PRN PO SBP> OR = 180, DBP> OR = 100 10/31/17 21:45 11/01/17 11:19 Pantoprazole Sodium (Protonix) 40 mg DAILY PO 11/01/17 16:00 11/02/17 09:26 Amlodipine Besylate (Norvasc) 10 mg DAILY PO 11/01/17 16:00 11/02/17 09:27 Objective Remarks GENERAL: Middle aged female, attempting to pull herself up in bed. HEAD: Normocephalic. EYES: No injection or drainage. NECK: Supple, trachea midline. CARDIOVASCULAR: Regular rate and rhythm. RESPIRATORY: Breath sounds equal bilaterally. No accessory muscle use. GASTROINTESTINAL: Abdomen soft, non-tender, nondistended. EXTREMITIES: No cyanosis NEUROLOGICAL: Awake, alert. Moving all extremities. L arm weakness. Assessment/Plan Problem List: (1) Breast mass ICD Codes: N63.0 - Unspecified lump in unspecified breast Status: Chronic Plan: Pending NS consultation. plan to consult with general surgery pending pathologic dx from bx of bone. If breast cancer, ER is at time diffcult to discern from bone,unless there is a soft tissue component to the metastasis in the back. Assessment 62y/o female with breast mass and suspected spinal metastatic lesions. h/o chronic back pain. ++chronic tobacco use Plan 1. Pt has just returned from CT scan; awaiting to see Dr Bell 2. Await biopsy to confirm diagnosis of either 2 primary cancers or metastatic disease. Attending Statement The exam, history, and the medical decision-making described in the above note were completed with the assistance of the mid-level provider. I reviewed and agree with the findings presented. I attest that I had a [id number] encounter with the patient on the same day, and personally performed and documented my assessment and findings in the medical record. Pt seen before meeting with Dr. Bell. Pain controlled, noted recommendations and pt contemplating options. If pt decide to proceed with surgery, [facility]. If pt decide no surgery, proceed with diagnostic CT guided bx and palliative XRT. Nelsy Foster Nov 02, 2017 15:28 Renetta Avilez MD Nov 02, 2017 21:27
--- NOTE | 2017-11-02 15:35 | RADRPT ---
EXAM DATE/TIME: 11/02/2017 13:38 [facility] COMPARISON: CT THORACIC SPINE W/O CONTRAST, November 02, 2017, 13:48. INDICATIONS : Matastases RADIATION DOSE: 28.02 CTDIvol (mGy) MEDICAL HISTORY : Hypertension. Fracture t -spine,pathologic SURGICAL HISTORY : None. ENCOUNTER: Initial ACUITY: 1 yr PAIN SCALE: 7/10 LOCATION: neck TECHNIQUE: Volumetric scanning of the cervical spine was performed. Multiplanar reconstructions in the sagittal, coronal and oblique axial planes were performed. Using automated exposure control and adjustment o f the mA and/or kV according to patient size, radiation dose was kept as low as reasonably achievable to obtain optimal diagnostic quality images. DICOM format image data is available electronically f or review and comparison. FINDINGS: VERTEBRAE: Lytic lesions are observed. A 1.7 cm lytic lesion is seen involving the occipital bone just to the le ft of midline. This is well circumscribed and smoothly marginated. The 1.1 cm lytic lesion is seen in volving the C3 vertebral body. This has posterior extension through the cortex with destruction of th e cortex and a soft tissue component entering the central canal abutting the ventral portion of the c ord. A 5 mm well-circumscribed lytic lesion is seen involving the C5 vertebral body to the left of mi dline. No extension into the central canal observed. No other lytic lesions observed. ALIGNMENT: There is a mild retrolisthesis of C4 on C5. Alignment is otherwise preserved. Heavily calcified atherosclerotic plaque is seen involving the carotid arteries bilaterally. No disce rnible cervical chain adenopathy. C2-C3: There is a central disc bulge without abutment of the cord. Central canal and neural foramina are pat ent. C3-C4: There is a central disc bulge in combination with the soft tissue component of the lytic lesion that abuts the ventral portion of the cord. I am unable to differentiate the disc from the soft tissue mas s. Neural foramina are patent. C4-C5: There is a retrolisthesis in combination with disc space narrowing and broad-based disc osteophyte co mplex causing significant central canal stenosis. The anterior to posterior dimension of the central canal measures 5 mm in the midline. Total effacement lateral recesses and neural foramina bilaterally . C5-C6: There is disc space narrowing with broad-based disc osteophyte complex eccentric to the left with tot al effacement left lateral recess. Narrowing of the central canal with the anterior to posterior dime nsion of the canal 7 mm in the midline. Near total effacement of the left neural foramen. Moderate na rrowing of the right neural foramen. C6-C7: Disc space narrowing with broad-based disc osteophyte complex. Central canal and lateral recesses are patent. Significant narrowing of the left neural foramen and moderate narrowing the right neural for amen secondary to bony uncovertebral hypertrophy. C7-T1: The bony spinal canal is normal in size. No evidence of disc bulge or herniation. The neural forami na are bilaterally patent. CONCLUSION: 1. 3 lytic lesions consistent with either metastatic disease or multiple myeloma. There is extension into the central canal involving the C3 lesion as detailed above. Carter Almodovar Jr., MD on November 02, 2017 at 15:20 Board Certified Radiologist. This report was verified electronically.
--- NOTE | 2017-11-02 16:01 | RADRPT ---
EXAM DATE/TIME: 11/02/2017 13:48 [facility] COMPARISON: CT ABDOMEN & PELVIS W CONTRAST, October 30, 2017, 14:26. INDICATIONS : Patholgic fractures of t-spine RADIATION DOSE: 11.87 CTDIvol (mGy) MEDICAL HISTORY : Hypertension. pathologic fractures t-spine SURGICAL HISTORY : None. ENCOUNTER: Initial ACUITY: 1 day PAIN SCALE: 7/10 LOCATION: T spine TECHNIQUE: Volumetric scanning of the thoracic spine was performed. Multiplanar reconstructions in the sagittal , coronal and oblique axial planes were performed. Using automated exposure control and adjustment o f the mA and/or kV according to patient size, radiation dose was kept as low as reasonably achievable to obtain optimal diagnostic quality images. DICOM format image data is available electronically f or review and comparison. FINDINGS: Examination confirms findings on chest CT exam. There are large lytic masses involving the T4 and T5 vertebral bodies with associated mild compression deformity at T4 and moderate compression deformity at T5. Mass at these levels extends through the cortex with anterior prevertebral mass. Mass also ext ends through the posterior processes and the costovertebral junctions. Although difficult to quantify , there is significant epidural extension of mass with associated significant spinal canal compromise . Lytic abnormality extends to the facets and lamina bilaterally at these levels. There are posterior lytic masses noted at T7 with a dominant left sided mass extending through the left posterior cortex , right pedicle and the superior endplate of T8. There is also mass extending through the right T8 pe dicle extending to the lamina, transverse processes and spinous process. Again, there is soft tissue mass noted in the right epidural space at T7-8 with likely moderate spinal canal compromise. There is a focal suspected posterior lytic mass in the inferior endplate of T11 centrally. There is degenerat angi change in this region with diffuse disc bulge. Suspect there is disc extrusion into the defect. N o gross epidural involvement although evaluation again is limited. CONCLUSION: 1. 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 Altho ugh suboptimally evaluated with CT, there is large amount of epidural tumor extension at these levels with significant spinal canal compromise. 2. Additional foci of metastatic disease at T7, T8 and likely T11. Please see above discussion. 3. MRI examination may be performed to further evaluate degree of epidural extension as clinically in dicated. Kendall Butler MD on November 02, 2017 at 15:25 Board Certified Radiologist. This report was verified electronically.
--- NOTE | 2017-11-02 16:52 | HHI.NSPN ---
(Jori Flores) History Chief Complaint: Thoracic spine pain controlled with pain medication. (Jori Flores) Interval History This is a 62-year-old female patient without previous significant medical history. She presents at the request of her primary care physician because of continued pain in her back. The patient apparently was seen by her primary care physician who ordered an MRI of the cervical and thoracic spine and because of abnormal findings, she was sent to the emergency room here at [place] for further evaluation. The patient reports having pain for approximately one month in the mid-back. She denies any neck pain and denies any lower back pain. She denies any radiation of pain to the arms or any radiation of pain into the legs. She denies any numbness. She reports that she is ambulatory without any problems. The patient reports she does not regularly see a physician, and denies any other medical problems. 11/02/17: Pt awakens to voice complains of mid back thoracic spine pain with radiation into bilateral ribs under her breast bilaterally. She denies any numbness or paresthesias in her chest or LEs. She states she has a chronic history of stress and urge incontinence but no marysol incontinence. No weakness in LEs. She denies any neck pain. (Jori Flores) Review of Systems General: Negative for: fever, chills, insomnia Respiratory: Negative for: shortness of breath, cough, sputum Cardiovascular: Positive for: chest pain (bilateral rib pain from her back.) Gastrointestinal: Negative for: nausea, vomitting, diarrhea, constipation ( Jori Flores) Exam Results Vital Signs Date Time Temp Pulse Resp B/P (MAP) Pulse Ox O2 Delivery O2 Flow Rate FiO2 11/02/17 12:00 98.1 78 17 140/70 (93) 95 11/01/17 17:50 21 10/30/17 22:04 Room Air (Jori Flores) Physical Examination General: Pt resting in bed appearing comfortable with stable vitals. Eyes: Pupils equal. Sclera anicteric. Resp: CTA bilaterally. Heart: NSR no no murmurs Abd: Soft positive bs Skin: No cyanosis or erythema in LEs. Muscle: Moves LEs with good strength. Neuro: Pt awake and alert. Follows commands well. Speech clear and appropriate. Sensation intact to light touch in LEs and abdomen/chest. (Jori Flores) Physical Examination Awake and alert Speech fluent Left deltoid, biceps, and triceps 4/5. The rest of the muscles in upper and lower extremities with good strength (Kory Bell MD) Lab, Micro, Other Results Last Impressions Thoracic Spine CT 11/02/17 0000 Signed Impressions: Service Date/Time: Thursday, November 02, 2017 13:48 - CONCLUSION: 1. 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 Although suboptimally evaluated with CT, there is large amount of epidural tumor extension at these levels with significant spinal canal compromise. 2. Additional foci of metastatic disease at T7, T8 and likely T11. Please see above discussion. 3. MRI examination may be performed to further evaluate degree of epidural extension as clinically indicated. Kendall Butler MD Cervical Spine CT 11/02/17 0000 Signed Impressions: Service Date/Time: Thursday, November 02, 2017 13:38 - CONCLUSION: 1. 3 lytic lesions consistent with either metastatic disease or multiple myeloma. There is extension into the central canal involving the C3 lesion as detailed above. Carter Almodovar Jr., MD Breast Ultrasound 10/30/17 2213 Signed Impressions: Service Date/Time: Monday, October 30, 2017 22:25 - CONCLUSION: 1. Mass in left breast measuring up to 3 cm in diameter. Ultrasound core biopsy recommended. Jovanny Sal MD Head CT 10/30/17 1304 Signed Impressions: Service Date/Time: Monday, October 30, 2017 14:20 - CONCLUSION: Intracranial contents are unremarkable. Scattered nonspecific lucencies in the calvarium. Ulises Mckoy MD FACR Chest CT 10/30/17 0000 Signed Impressions: Service Date/Time: Monday, October 30, 2017 14:26 - CONCLUSION: The examination demonstrates a destructive lesion involving what are probably the T5 and T6 vertebral bodies. There does appear to be significant canal compromise with epidural spread of disease. This is highly suspicious for malignancy. Dedicated MRI imaging is warranted for further assessment. This lesion would be amenable to CT-guided biopsy for sampling. Papa Mckoy MD Abdomen/Pelvis CT 10/30/17 0000 Signed Impressions: Service Date/Time: Monday, October 30, 2017 14:26 - CONCLUSION: 1. Punctate nonobstructing stones in the kidneys bilaterally. 2. CT examination is otherwise within normal limits for age. Papa Mckoy MD Laboratory Tests Test 11/02/17 12:16 White Blood Count 16.0 TH/MM3 Red Blood Count 4.57 MIL/MM3 Hemoglobin 16.1 GM/DL Hematocrit 47.3 % Mean Corpuscular Volume 103.5 FL Mean Corpuscular Hemoglobin 35.2 PG Mean Corpuscular Hemoglobin Concent 34.0 % Red Cell Distribution Width 14.7 % Platelet Count 245 TH/MM3 Mean Platelet Volume 9.8 FL Blood Urea Nitrogen 24 MG/DL Creatinine 0.81 MG/DL Random Glucose 102 MG/DL Calcium Level 10.5 MG/DL Sodium Level 137 MEQ/L Potassium Level 3.9 MEQ/L Chloride Level 101 MEQ/L Carbon Dioxide Level 27.7 MEQ/L Anion Gap 8 MEQ/L Estimat Glomerular Filtration Rate 71 ML/MIN (Jori Flores) Medical Decision Making Impression and Plan A: 62 y/o FM with pathologic compression fracture at T4 and T5 with additional metastatic disease at T7, T8, and T11 as well as lytic lesions in the occipital bone, C3, and C6 vertebral bodies. P: Custom TLSO brace and cervical collar ordered. Continue with pain control Further neurosurgical plan per Dr. Bell and his review of the cervical and thoracic CT scans which were just completed this late afternoon. (Jori Flores) Attending Statement The exam, history, and the medical decision-making described in the above note were completed with the assistance of the mid-level provider. I reviewed and agree with the findings presented. I attest that I had a [id number] encounter with the patient on the same day, and personally performed and documented my assessment and findings in the medical record. Complaints of the left triceps and shoulder pain with associated weakness especially last few days. Has chronic urinary stress urge incontinence and has been using pads for years. Extensive review of the CT of the cervical and thoracic spine as well as outpatient MRI of the cervical thoracic spine was undertaken. She has severe C4-5 and C5-6 spinal stenosis with cord compression and spinal canals reduced down to less than 4 mm at both these levels with partial ossification of posterior longitudinal ligament. There are also lytic lesions involving C3 and C5 vertebral body. She has very destructive T5 as well as T4 and T6 vertebral body lesions with severe kyphosis vertebral body height collapse along with the spinal canal involvement from the pathologic fracture and tumor. There is also partial pedicle involvement at the T7 and T8 pedicle and vertebral body. She is at high risk for quadriplegia from the cervical stenosis and paraplegia from the thoracic stenosis. Treatment options were discussed and recommended an anterior C4-6 corpectomies with interbody fusion and plate placement to be subsequently followed with the posterior T2-T9 segmental fixation T4-6 spinal canal decompression. These are extensive surgeries with significant complications in the risks and benefits were discussed at length with her. I also spoke with her son in [place] over the phone and discussed the findings and recommendations including surgery as well as nonsurgical options. She wants to further contemplate surgery but discussed with the rest of her children and will subsequently inform us of her decision. In the meantime she is to be maintained on bedrest with spinal precautions. (Kory Bell MD) Jori Flores Nov 02, 2017 16:52 Kory Bell MD Nov 02, 2017 17:31
[2017-11-02] MEDS: MORPHINE SULFATE 4 MG/ML INJ IV PUSH PRN (17:40)
[2017-11-02] MEDS: ENOXAPARIN SODIUM 40 MG/0.4 ML SYRINGE SQ SCH (18:36)
[2017-11-02 19:58] VITALS: BP 141/65; PULSE 65; RESP 17; TEMP 96.9; O2SAT 95
[2017-11-03] VITALS (8 sets, daily range): BP systolic 131–186; BP diastolic 64–80; PULSE 60–71; RESP 17–18; TEMP 96.4–97.5; O2SAT 92–98
[2017-11-03] MEDS: SENNOSIDES 8.6 MG TAB PO PRN (00:15)
[2017-11-03] MEDS: DEXAMETHASONE SOD PHOS 4 MG/ML VIAL IV PUSH SCH ×5 (00:15→23:21)
[2017-11-03] MEDS: MAGNESIUM HYDROXIDE SUSP 30 ML CUP PO PRN (00:15)
[2017-11-03] MEDS: MORPHINE SULFATE 4 MG/ML INJ IV PUSH PRN ×3 (00:16→16:20)
[2017-11-03] MEDS: MORPHINE SULFATE 15 MG CONTROLLED RELEASE TAB PO SCH ×2 (02:50→12:24)
[2017-11-03] MEDS: oxyCODONE/ACETAMINOPHEN 7.5 MG/325 MG TAB PO PRN ×3 (05:45→16:19)
[2017-11-03] MEDS: SODIUM CHLORIDE 0.9% FLUSH 10 ML FLUSH IV FLUSH SCH ×2 (09:00→20:39)
[2017-11-03] MEDS: PANTOPRAZOLE SOD 40 MG DELAYED RELEASE TAB PO SCH (09:24)
[2017-11-03] MEDS: amLODIPine BESYLATE 5 MG TAB PO SCH (09:24)
--- NOTE | 2017-11-03 13:34 | HHI.NSPN ---
(Jori Flores) History Chief Complaint: Thoracic spine pain controlled with pain medication. (Jori Flores) Interval History This is a 62-year-old female patient without previous significant medical history. She presents at the request of her primary care physician because of continued pain in her back. The patient apparently was seen by her primary care physician who ordered an MRI of the cervical and thoracic spine and because of abnormal findings, she was sent to the emergency room here at [facility] for further evaluation. The patient reports having pain for approximately one month in the mid-back. She denies any neck pain and denies any lower back pain. She denies any radiation of pain to the arms or any radiation of pain into the legs. She denies any numbness. She reports that she is ambulatory without any problems. The patient reports she does not regularly see a physician, and denies any other medical problems. 11/02/17: Pt awakens to voice complains of mid back thoracic spine pain with radiation into bilateral ribs under her breast bilaterally. She denies any numbness or paresthesias in her chest or LEs. She states she has a chronic history of stress and urge incontinence but no marysol incontinence. No weakness in LEs. She denies any neck pain. 11/03/17: Patient is awake and alert. She complains of mid thoracic back pain radiating under her breasts bilaterally. She also complains of left triceps tightness/discomfort. Patient states that she has not discussed with the rest of her family her options. (Jori Flores) Review of Systems General: Negative for: fever, chills, insomnia Respiratory: Negative for: shortness of breath, cough, sputum Cardiovascular: Positive for: chest pain Gastrointestinal: Negative for: nausea, vomitting, diarrhea, constipation ( Jori Flores) Exam Results Vital Signs Date Time Temp Pulse Resp B/P (MAP) Pulse Ox O2 Delivery O2 Flow Rate FiO2 11/03/17 11:36 96.4 64 18 131/71 (91) 95 11/03/17 09:52 21 10/30/17 22:04 Room Air Intake and Output 11/03/17 11/03/17 11/04/17 08:00 16:00 00:00 Intake Total 360 ml Balance 360 ml (Jori Flores) Physical Examination General: Pt awake and alert sitting up in bed. Eyes: Pupils equal. Sclera anicteric. Resp: CTA bilaterally Heart: NSR no murmurs Abd: soft positive bs Skin: No cyanosis or erythema Muscle: Left deltoid, triceps, and biceps weakness 4/5 strength in UEs and LEs 5/5. Neuro: Pt awake and alert. Follows commands well. Speech clear and appropriate. Sensation intact. (Jori Flores) Lab, Micro, Other Results Last Impressions Thoracic Spine CT 11/02/17 0000 Signed Impressions: Service Date/Time: Thursday, November 02, 2017 13:48 - CONCLUSION: 1. 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 Although suboptimally evaluated with CT, there is large amount of epidural tumor extension at these levels with significant spinal canal compromise. 2. Additional foci of metastatic disease at T7, T8 and likely T11. Please see above discussion. 3. MRI examination may be performed to further evaluate degree of epidural extension as clinically indicated. Kendall Butler MD Cervical Spine CT 11/02/17 0000 Signed Impressions: Service Date/Time: Thursday, November 02, 2017 13:38 - CONCLUSION: 1. 3 lytic lesions consistent with either metastatic disease or multiple myeloma. There is extension into the central canal involving the C3 lesion as detailed above. Carter Almodovar Jr., MD Breast Ultrasound 10/30/17 2213 Signed Impressions: Service Date/Time: Monday, October 30, 2017 22:25 - CONCLUSION: 1. Mass in left breast measuring up to 3 cm in diameter. Ultrasound core biopsy recommended. Jovanny Sal MD Head CT 10/30/17 1304 Signed Impressions: Service Date/Time: Monday, October 30, 2017 14:20 - CONCLUSION: Intracranial contents are unremarkable. Scattered nonspecific lucencies in the calvarium. Ulises Mckoy MD FACR Chest CT 10/30/17 0000 Signed Impressions: Service Date/Time: Monday, October 30, 2017 14:26 - CONCLUSION: The examination demonstrates a destructive lesion involving what are probably the T5 and T6 vertebral bodies. There does appear to be significant canal compromise with epidural spread of disease. This is highly suspicious for malignancy. Dedicated MRI imaging is warranted for further assessment. This lesion would be amenable to CT-guided biopsy for sampling. Papa Mckoy MD Abdomen/Pelvis CT 10/30/17 0000 Signed Impressions: Service Date/Time: Monday, October 30, 2017 14:26 - CONCLUSION: 1. Punctate nonobstructing stones in the kidneys bilaterally. 2. CT examination is otherwise within normal limits for age. Papa Mckoy MD (Jori Flores) Medical Decision Making Impression and Plan A: 62 y/o FM with severe C4-5 and C5-6 spinal stenosis with cord compression and spinal canals reduced down to less than 4 mm at both these levels with partial ossification of posterior longitudinal ligament. There are also lytic lesions involving C3 and C5 vertebral body. She has very destructive T5 as well as T4 and T6 vertebral body lesions with severe kyphosis vertebral body height collapse along with the spinal canal involvement from the pathologic fracture and tumor. There is also partial pedicle involvement at the T7 and T8 pedicle and vertebral body. P: Custom TLSO brace and cervical collar ordered. Continue with pain control Pt is discussing with her family treatment for her cervical stenosis and pathologic thoracic fractures. (Jori Flores) Attending Statement The exam, history, and the medical decision-making described in the above note were completed with the assistance of the mid-level provider. I reviewed and agree with the findings presented. I attest that I had a [id number] encounter with the patient on the same day, and personally performed and documented my assessment and findings in the medical record. (Kory Bell MD) Jori Flores Nov 03, 2017 13:34 Kory Bell MD Nov 03, 2017 17:15
--- NOTE | 2017-11-03 14:21 | HHI.PR ---
Subjective Remarks awake and alert still having pain across the back- midthoracic area- no radiation pain meds helping Objective Vitals Vital Signs Date Time Temp Pulse Resp B/P (MAP) Pulse Ox O2 Delivery O2 Flow Rate FiO2 11/03/17 11:36 96.4 64 18 131/71 (91) 95 11/03/17 09:52 92 21 11/03/17 07:35 96.6 70 18 157/70 (99) 95 11/03/17 04:15 96.7 71 17 139/67 (91) 95 11/03/17 00:12 96.7 69 18 139/64 (89) 94 11/02/17 19:58 96.9 65 17 141/65 (90) 95 I/O 11/02/17 11/02/17 11/02/17 11/03/17 11/03/17 11/03/17 07:00 15:00 23:00 07:00 15:00 23:00 Intake Total 360 ml 360 ml Balance 360 ml 360 ml Intake Oral 360 ml 360 ml # Voids 3 2 # Bowel Movements 0 0 Result Diagram: 11/02/17 1216 11/02/17 1216 Imaging Last Impressions Thoracic Spine CT 11/02/17 0000 Signed Impressions: Service Date/Time: Thursday, November 02, 2017 13:48 - CONCLUSION: 1. 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 Although suboptimally evaluated with CT, there is large amount of epidural tumor extension at these levels with significant spinal canal compromise. 2. Additional foci of metastatic disease at T7, T8 and likely T11. Please see above discussion. 3. MRI examination may be performed to further evaluate degree of epidural extension as clinically indicated. Kendall Butler MD Cervical Spine CT 11/02/17 0000 Signed Impressions: Service Date/Time: Thursday, November 02, 2017 13:38 - CONCLUSION: 1. 3 lytic lesions consistent with either metastatic disease or multiple myeloma. There is extension into the central canal involving the C3 lesion as detailed above. Carter Almodovar Jr., MD Breast Ultrasound 10/30/17 2216 Signed Impressions: Service Date/Time: Monday, October 30, 2017 22:25 - CONCLUSION: 1. Mass in left breast measuring up to 3 cm in diameter. Ultrasound core biopsy recommended. Jovanny Sal MD Head CT 10/30/17 1304 Signed Impressions: Service Date/Time: Monday, October 30, 2017 14:20 - CONCLUSION: Intracranial contents are unremarkable. Scattered nonspecific lucencies in the calvarium. Ulises Mckoy MD FACR Chest CT 10/30/17 0000 Signed Impressions: Service Date/Time: Monday, October 30, 2017 14:26 - CONCLUSION: The examination demonstrates a destructive lesion involving what are probably the T5 and T6 vertebral bodies. There does appear to be significant canal compromise with epidural spread of disease. This is highly suspicious for malignancy. Dedicated MRI imaging is warranted for further assessment. This lesion would be amenable to CT-guided biopsy for sampling. Papa Mckoy MD Abdomen/Pelvis CT 10/30/17 0000 Signed Impressions: Service Date/Time: Monday, October 30, 2017 14:26 - CONCLUSION: 1. Punctate nonobstructing stones in the kidneys bilaterally. 2. CT examination is otherwise within normal limits for age. Papa Mckoy MD Objective Remarks awake andlaert anicteric lungs- no rlaes regular rhythm abdomen soft, nontender extremities no edema grossly no sensory or motor deficits A/P Problem List: (1) Pathologic thoracic fracture ICD Code: M84.48XA - Pathological fracture, other site, initial encounter for fracture Status: Acute (2) Metastatic bone cancer ICD Code: C41.9 - Malignant neoplasm of bone and articular cartilage, unspecified Status: Acute (3) Cervical spinal stenosis ICD Code: M48.02 - Spinal stenosis, cervical region Assessment and Plan 62-year-old female with a history of chronic back pain, tobacco use who presented to the emergency department on the advice of her primary care provider due to abnormal MRI of her cervical and thoracic spine. MRI studies essentially shows multiple lesions throughout her thoracic, lumbar vertebrae. Cervical spine also shows occipital bone involvement as well. Patient has no history of any malignancy. No weight loss. - Probable metastatic bone lesions - T5 , T6 pathologic fractures - Metastatic epidural spread - Cervical Spinal canal stenosis. - Left Breast mass - CT head shows scattered nonspecific luscencies in the calvarium. - Neurosurgery and Oncology following. - Will need biopsy. Further plans per neurosurgery and oncology regarding biopsy- patient now agrees to biopsy - Pain better controlled. Continue schedule Oramorph. morphine IV, Percocet when necessary.- in crease Morphine - Continue dexamethasone 4 mg IV every 6 hours. - Hypokalemia -resolved. Full code. Lovenox for DVT prophylaxis. Problem Qualifiers (1) Pathologic thoracic fracture: Qualified Codes: M84.48XA - Pathological fracture, other site, initial encounter for fracture Matteo Taylor MD Nov 03, 2017 14:21
[2017-11-03] MEDS: cloNIDine HCL 0.1 MG TAB PO PRN (15:26)
[2017-11-03] MEDS: LACTULOSE SYRUP 20 GM/30 ML CUP PO PRN (15:26)
[2017-11-03] MEDS: ENOXAPARIN SODIUM 40 MG/0.4 ML SYRINGE SQ SCH (18:25)
--- NOTE | 2017-11-03 20:15 | PD.ONC.PN ---
Subjective Subjective Remarks Anxious about her surgery. Discussed Dr. Bell's plan for two step process to stabilize C-spine then the T spine. Objective Data Date Time Temp Pulse Resp B/P (MAP) Pulse Ox O2 Delivery O2 Flow Rate FiO2 11/03/17 15:29 97.5 68 18 186/80 (115) 94 11/03/17 11:36 96.4 64 18 131/71 (91) 95 11/03/17 09:52 92 21 11/03/17 07:35 96.6 70 18 157/70 (99) 95 11/03/17 04:15 96.7 71 17 139/67 (91) 95 11/03/17 00:12 96.7 69 18 139/64 (89) 94 11/03/17 11/03/17 11/03/17 07:00 15:00 23:00 Intake Total 360 ml 800 ml Output Total 250 ml Balance 360 ml 800 ml -250 ml Result Diagram: 11/02/17 1216 11/02/17 1216 Administered Medications Medications (Trade) Dose Ordered Sig/Sandra Route PRN Reason Start Time Stop Time Status Last Admin Dose Admin Sodium Chloride (NS Flush) 2 ml BID IV FLUSH 10/30/17 21:00 11/03/17 09:00 Magnesium Hydroxide (Milk Of Magnesia Liq) 30 ml Q12H PRN PO Mild constipation 10/30/17 15:45 11/03/17 00:15 Sennosides (Senokot) 17.2 mg Q12H PRN PO Moderate constipation 10/30/17 15:45 11/03/17 00:15 Lactulose (Lactulose Liq) 30 ml DAILY PRN PO SEVERE CONSITIPATION 10/30/17 15:45 11/03/17 15:26 Dexamethasone Sodium Phosphate (Decadron Inj) 4 mg Q6HR IV PUSH 10/30/17 18:00 11/03/17 18:25 Oxycodone/ Acetaminophen (Percocet 7.5-325 Mg) 1 tab Q6H PRN PO PAIN SCALE 5 TO 10 10/30/17 16:15 11/03/17 16:19 Morphine Sulfate (Morphine Inj) 4 mg Q3H PRN IV PUSH BREAKTHROUGH PAIN 10/30/17 16:15 11/03/17 16:20 Enoxaparin Sodium (Lovenox Inj) 40 mg Q24H SQ 10/30/17 19:00 11/03/17 18:25 Clonidine (Catapres) 0.1 mg Q6H PRN PO SBP> OR = 180, DBP> OR = 100 10/31/17 21:45 11/03/17 15:26 Pantoprazole Sodium (Protonix) 40 mg DAILY PO 11/01/17 16:00 11/03/17 09:24 Amlodipine Besylate (Norvasc) 10 mg DAILY PO 11/01/17 16:00 11/03/17 09:24 Objective Remarks Objective Remarks GENERAL: Middle aged female, attempting to pull herself up in bed. HEAD: Normocephalic. EYES: No injection or drainage. NECK: Supple, trachea midline. CARDIOVASCULAR: Regular rate and rhythm. RESPIRATORY: Breath sounds equal bilaterally. No accessory muscle use. GASTROINTESTINAL: Abdomen soft, non-tender, nondistended. EXTREMITIES: No cyanosis NEUROLOGICAL: Awake, alert. Moving all extremities. L arm weakness. Assessment/Plan Problem List: (1) Breast mass ICD Codes: N63.0 - Unspecified lump in unspecified breast Status: Chronic Plan: Pending NS consultation. plan to consult with general surgery pending pathologic dx from bx of bone. If breast cancer, ER is at time diffcult to discern from bone,unless there is a soft tissue component to the metastasis in the back. 11/03/17. Events last 24 hours noted. Pt decision to proceed with NS recommendations. Defer breast biopsy and await pathology from C-spine and T spine. Anticipate dx could be made from above specimen from surgery. C spine however looks more DJD, follow with pathology. If breast cancer ER/WI/Her 2 status would be helpful. For now, need diagnostic tissue bx. Assessment 62y/o female with breast mass and suspected spinal metastatic lesions. h/o chronic back pain. ++chronic tobacco use Plan 1. Pain control. 2. Surgery per NS plan. 3. Need biopsy specimen from above surgeries for diagnosis. Renetta Avilez MD Nov 03, 2017 20:15
[2017-11-03] MEDS: MORPHINE SULFATE 30 MG CONTROLLED RELEASE TAB PO SCH (20:38)
[2017-11-03] MEDS: SODIUM CHLORIDE 0.65% NASAL DRP/SPRY 30 ML BTL EACH NARE SCH (21:18)
[2017-11-03] MEDS: SODIUM CHLORIDE 0.9% FLUSH 10 ML FLUSH IV FLUSH PRN (23:21)
[2017-11-04] VITALS (7 sets, daily range): BP systolic 140–179; BP diastolic 63–83; PULSE 61–68; RESP 16–18; TEMP 96.3–97.8; O2SAT 92–98
[2017-11-04] MEDS: MORPHINE SULFATE 30 MG CONTROLLED RELEASE TAB PO SCH ×3 (05:17→20:20)
[2017-11-04] MEDS: cloNIDine HCL 0.1 MG TAB PO PRN (05:17)
[2017-11-04] MEDS: DEXAMETHASONE SOD PHOS 4 MG/ML VIAL IV PUSH SCH ×3 (05:22→20:20)
[2017-11-04] MEDS: SODIUM CHLORIDE 0.9% FLUSH 10 ML FLUSH IV FLUSH PRN ×2 (05:22→14:43)
[2017-11-04] MEDS: SODIUM CHLORIDE 0.65% NASAL DRP/SPRY 30 ML BTL EACH NARE SCH ×2 (09:00→20:21)
[2017-11-04] MEDS: PANTOPRAZOLE SOD 40 MG DELAYED RELEASE TAB PO SCH (09:15)
[2017-11-04] MEDS: amLODIPine BESYLATE 5 MG TAB PO SCH (09:15)
[2017-11-04] MEDS: SODIUM CHLORIDE 0.9% FLUSH 10 ML FLUSH IV FLUSH SCH ×2 (09:16→20:21)
--- NOTE | 2017-11-04 12:49 | HHI.NSPN ---
(Jori Flores) History Chief Complaint: Thoracic spine pain controlled with pain medication. (Jori Flores) Interval History This is a 62-year-old female patient without previous significant medical history. She presents at the request of her primary care physician because of continued pain in her back. The patient apparently was seen by her primary care physician who ordered an MRI of the cervical and thoracic spine and because of abnormal findings, she was sent to the emergency room here at [place] for further evaluation. The patient reports having pain for approximately one month in the mid-back. She denies any neck pain and denies any lower back pain. She denies any radiation of pain to the arms or any radiation of pain into the legs. She denies any numbness. She reports that she is ambulatory without any problems. The patient reports she does not regularly see a physician, and denies any other medical problems. 11/02/17: Pt awakens to voice complains of mid back thoracic spine pain with radiation into bilateral ribs under her breast bilaterally. She denies any numbness or paresthesias in her chest or LEs. She states she has a chronic history of stress and urge incontinence but no marysol incontinence. No weakness in LEs. She denies any neck pain. 11/03/17: Patient is awake and alert. She complains of mid thoracic back pain radiating under her breasts bilaterally. She also complains of left triceps tightness/discomfort. Patient states that she has not discussed with the rest of her family her options. 11/04/17: Pt states when laying down her neck pain is controlled. She does have some discomfort/tightness in the right triceps area. No paresthesias in UEs or LEs. She has good strength on testing in LEs. Mild 4/5 left deltoid, triceps and biceps strength. Pt states she is ready to have surgery tomorrow. (Jori Flores) Review of Systems General: Negative for: fever, chills, insomnia Respiratory: Negative for: shortness of breath, cough, sputum Cardiovascular: Negative for: chest pain Gastrointestinal: Negative for: nausea, vomitting, diarrhea, constipation ( Jori Flores) Exam Results Vital Signs Date Time Temp Pulse Resp B/P (MAP) Pulse Ox O2 Delivery O2 Flow Rate FiO2 11/04/17 09:44 98 11/04/17 08:00 96.4 67 18 172/77 (108) 11/03/17 09:52 21 Intake and Output 11/04/17 11/04/17 11/05/17 08:00 16:00 00:00 Intake Total 480 ml Balance 480 ml (Jori Flores) Physical Examination General: Pt awake and alert laying in bed. Custom TLSO brace with cervical collar at bedside. Eyes: Pupils equal. Sclera anicteric. Resp: CTA bilaterally Heart: NSR no murmurs Abd: soft positive bs Skin: No cyanosis or erythema Muscle: Left deltoid, triceps, and biceps weakness 4/5 strength in UEs and LEs 5/5. Neuro: Pt awake and alert. Follows commands well. Speech clear and appropriate. Sensation intact in UEs and LEs. (Jori Flores) Lab, Micro, Other Results Last Impressions Thoracic Spine CT 11/02/17 0000 Signed Impressions: Service Date/Time: Thursday, November 02, 2017 13:48 - CONCLUSION: 1. 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 Although suboptimally evaluated with CT, there is large amount of epidural tumor extension at these levels with significant spinal canal compromise. 2. Additional foci of metastatic disease at T7, T8 and likely T11. Please see above discussion. 3. MRI examination may be performed to further evaluate degree of epidural extension as clinically indicated. Kendall Butler MD Cervical Spine CT 11/02/17 0000 Signed Impressions: Service Date/Time: Thursday, November 02, 2017 13:38 - CONCLUSION: 1. 3 lytic lesions consistent with either metastatic disease or multiple myeloma. There is extension into the central canal involving the C3 lesion as detailed above. Carter Almodovar Jr., MD Breast Ultrasound 10/30/17 2213 Signed Impressions: Service Date/Time: Monday, October 30, 2017 22:25 - CONCLUSION: 1. Mass in left breast measuring up to 3 cm in diameter. Ultrasound core biopsy recommended. Jovanny Sal MD Head CT 10/30/17 1304 Signed Impressions: Service Date/Time: Monday, October 30, 2017 14:20 - CONCLUSION: Intracranial contents are unremarkable. Scattered nonspecific lucencies in the calvarium. Ulises Mckoy MD FACR Chest CT 10/30/17 0000 Signed Impressions: Service Date/Time: Monday, October 30, 2017 14:26 - CONCLUSION: The examination demonstrates a destructive lesion involving what are probably the T5 and T6 vertebral bodies. There does appear to be significant canal compromise with epidural spread of disease. This is highly suspicious for malignancy. Dedicated MRI imaging is warranted for further assessment. This lesion would be amenable to CT-guided biopsy for sampling. Papa Mckoy MD Abdomen/Pelvis CT 10/30/17 0000 Signed Impressions: Service Date/Time: Monday, October 30, 2017 14:26 - CONCLUSION: 1. Punctate nonobstructing stones in the kidneys bilaterally. 2. CT examination is otherwise within normal limits for age. Papa Mckoy MD (Jori Flores) Medical Decision Making Impression and Plan A: 62 y/o FM with severe C4-5 and C5-6 spinal stenosis with cord compression and spinal canals reduced down to less than 4 mm at both these levels with partial ossification of posterior longitudinal ligament. There are also lytic lesions involving C3 and C5 vertebral body. She has very destructive T5 as well as T4 and T6 vertebral body lesions with severe kyphosis vertebral body height collapse along with the spinal canal involvement from the pathologic fracture and tumor. There is also partial pedicle involvement at the T7 and T8 pedicle and vertebral body. P: Continue with pain control Pt has decided to proceed with Cervical decompression and fusion. She will also need thoracic spine stabilization at a later time possibly next week. (Jori Flores) Attending Statement The exam, history, and the medical decision-making described in the above note were completed with the assistance of the mid-level provider. I reviewed and agree with the findings presented. I attest that I had a [id number] encounter with the patient on the same day, and personally performed and documented my assessment and findings in the medical record. Symptoms unchanged and is now requesting to proceed with the cervical spine surgery and subsequently thoracic spine surgery after discussion with her children. Procedure of anterior C4-6 carpectomies with interbody fusion and plate placement was discussed along the risks and benefits involved. No guarantees given. She gives informed consent and the surgery scheduled for tomorrow morning. (Kory Bell MD) Jori Flores Nov 04, 2017 12:48 Kory Bell MD Nov 04, 2017 16:38
[2017-11-04] MEDS: MORPHINE SULFATE 4 MG/ML INJ IV PUSH PRN ×2 (14:42→20:20)
--- NOTE | 2017-11-04 16:05 | HHI.PR ---
Subjective Remarks pain well controlled looking forward to neck surgery had a BM yesterday + flatus voiding spontaneously Objective Vitals Vital Signs Date Time Temp Pulse Resp B/P (MAP) Pulse Ox O2 Delivery O2 Flow Rate FiO2 11/04/17 14:47 20 11/04/17 13:19 20 11/04/17 12:00 97.5 61 18 163/63 (96) 94 11/04/17 09:44 98 11/04/17 08:00 96.4 67 18 172/77 (108) 92 11/03/17 23:47 96.7 60 18 171/78 (109) 98 11/03/17 19:24 96.6 69 18 148/72 (97) 97 I/O 11/03/17 11/03/17 11/03/17 11/04/17 11/04/17 11/04/17 07:00 15:00 23:00 07:00 15:00 23:00 Intake Total 360 ml 800 ml 480 ml 480 ml Output Total 250 ml Balance 360 ml 800 ml 230 ml 480 ml Intake Oral 360 ml 800 ml 480 ml 480 ml Output Urine Total 250 ml # Voids 2 2 4 1 # Bowel Movements 0 1 0 Result Diagram: 11/02/17 1216 11/02/17 1216 Imaging Last Impressions Thoracic Spine CT 11/02/17 0000 Signed Impressions: Service Date/Time: Thursday, November 02, 2017 13:48 - CONCLUSION: 1. 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 Although suboptimally evaluated with CT, there is large amount of epidural tumor extension at these levels with significant spinal canal compromise. 2. Additional foci of metastatic disease at T7, T8 and likely T11. Please see above discussion. 3. MRI examination may be performed to further evaluate degree of epidural extension as clinically indicated. Kendall Butler MD Cervical Spine CT 11/02/17 0000 Signed Impressions: Service Date/Time: Thursday, November 02, 2017 13:38 - CONCLUSION: 1. 3 lytic lesions consistent with either metastatic disease or multiple myeloma. There is extension into the central canal involving the C3 lesion as detailed above. Carter Almodovar Jr., MD Breast Ultrasound 10/30/17 2213 Signed Impressions: Service Date/Time: Monday, October 30, 2017 22:25 - CONCLUSION: 1. Mass in left breast measuring up to 3 cm in diameter. Ultrasound core biopsy recommended. Jovanny Sal MD Head CT 10/30/17 1304 Signed Impressions: Service Date/Time: Monday, October 30, 2017 14:20 - CONCLUSION: Intracranial contents are unremarkable. Scattered nonspecific lucencies in the calvarium. Ulises Mckoy MD FACR Chest CT 10/30/17 0000 Signed Impressions: Service Date/Time: Monday, October 30, 2017 14:26 - CONCLUSION: The examination demonstrates a destructive lesion involving what are probably the T5 and T6 vertebral bodies. There does appear to be significant canal compromise with epidural spread of disease. This is highly suspicious for malignancy. Dedicated MRI imaging is warranted for further assessment. This lesion would be amenable to CT-guided biopsy for sampling. Paap Mckoy MD Abdomen/Pelvis CT 10/30/17 0000 Signed Impressions: Service Date/Time: Monday, October 30, 2017 14:26 - CONCLUSION: 1. Punctate nonobstructing stones in the kidneys bilaterally. 2. CT examination is otherwise within normal limits for age. Papa Mckoy MD Objective Remarks awake and alert anicteric lungs- no rales regular rhythm abdomen soft, nontender extremities no edema grossly no sensory or motor deficits A/P Problem List: (1) Pathologic thoracic fracture ICD Code: M84.48XA - Pathological fracture, other site, initial encounter for fracture Status: Acute (2) Metastatic bone cancer ICD Code: C41.9 - Malignant neoplasm of bone and articular cartilage, unspecified Status: Acute (3) Cervical spinal stenosis ICD Code: M48.02 - Spinal stenosis, cervical region Assessment and Plan 62-year-old female with a history of chronic back pain, tobacco use who presented to the emergency department on the advice of her primary care provider due to abnormal MRI of her cervical and thoracic spine. MRI studies essentially shows multiple lesions throughout her thoracic, lumbar vertebrae. Cervical spine also shows occipital bone involvement as well. Patient has no history of any malignancy. No weight loss. - Probable metastatic bone lesions - T5 , T6 pathologic fractures - Metastatic epidural spread - Cervical Spinal canal stenosis. - Unknown primary. Breast mass noted on ultrasound. Per patient her last mammogram was over 15 years ago. - CT head shows scattered nonspecific luscencies in the calvarium. - Neurosurgery and Oncology following. - Will need biopsy. Further plans per neurosurgery and oncology regarding biopsy- patient now agrees to biopsy and procedure - Pain better controlled. Continue schedule Oramorph. morphine IV, Percocet when necessary.- in crease Morphine - Continue dexamethasone 4 mg IV - decreased to q 8 - agrees to proceed with Cervical decompression and fusion. She will also need thoracic spine stabilization at a later time possibly next week. - Hypokalemia -resolved. Full code. Lovenox for DVT prophylaxis.- held for surgery Problem Qualifiers (1) Pathologic thoracic fracture: Qualified Codes: M84.48XA - Pathological fracture, other site, initial encounter for fracture Matteo Taylor MD Nov 04, 2017 16:04
[2017-11-04] MEDS: oxyCODONE/ACETAMINOPHEN 7.5 MG/325 MG TAB PO PRN (16:21)
[2017-11-04] MEDS: MAGNESIUM HYDROXIDE SUSP 30 ML CUP PO PRN (20:20)
[2017-11-04] MEDS ORDERED: SODIUM CHLORID 0.9% 500 ML IV PRN (22:15)
[2017-11-04] MEDS ORDERED: LACTATED RINGER'S 1000 ML IV PRN (22:15)
[2017-11-04] MEDS ORDERED: CHLORHEXIDINE GLUCONATE 2 % 1 PACK (2 CLOTHS) TOPICAL PRN (22:15)
[2017-11-04] MEDS ORDERED: POVIDONE IODINE 5% (ANTISEPSIS KIT) 4 APPLICATIONS EACH NARE PRN (22:15)
[2017-11-04] MEDS ORDERED: METOPROLOL TARTRATE 25 MG TAB PO PRN (22:15)
[2017-11-05] MEDS: DEXAMETHASONE SOD PHOS 4 MG/ML VIAL IV PUSH SCH ×3 (04:18→20:50)
[2017-11-05] MEDS: MORPHINE SULFATE 30 MG CONTROLLED RELEASE TAB PO SCH ×3 (04:18→19:58)
[2017-11-05 04:30] VITALS: BP 188/77; PULSE 61; RESP 17; TEMP 96.8; O2SAT 98
[2017-11-05] MEDS: oxyCODONE/ACETAMINOPHEN 7.5 MG/325 MG TAB PO PRN ×2 (05:33→20:50)
[2017-11-05] MEDS: cloNIDine HCL 0.1 MG TAB PO PRN (05:33)
[2017-11-05 06:35] VITALS: BP 158/76; PULSE 62
[2017-11-05] MEDS ORDERED: BUPIVACAINE/EPINEPHRINE 0.5% PF 30 ML VIAL ONE (07:03)
[2017-11-05] MEDS ORDERED: VANCOMYCIN HCL 1000 MG VIAL ONE ×2 (07:03→08:58)
[2017-11-05] MEDS ORDERED: GELFOAM SIZE 100 ONE ×2 (07:03→10:15)
[2017-11-05] MEDS ORDERED: THROMBIN (TOPICAL) 5,000 UNIT VIAL ONE ×3 (07:03→10:17)
[2017-11-05] MEDS: PANTOPRAZOLE SOD 40 MG DELAYED RELEASE TAB PO SCH (07:15)
[2017-11-05] MEDS: SODIUM CHLORIDE 0.65% NASAL DRP/SPRY 30 ML BTL EACH NARE SCH ×2 (07:15→19:58)
[2017-11-05] MEDS ORDERED: PROPOFOL 500 MG/50 ML INJ 50 ML ONE (07:26)
[2017-11-05] MEDS ORDERED: fentaNYL CITRATE 250 MCG/5 ML AMP ONE (07:27)
--- NOTE | 2017-11-05 07:29 | HHI.PR ---
Subjective Remarks slept good overnight minimal pain looking forward to surgery this am- Objective Vitals Vital Signs Date Time Temp Pulse Resp B/P (MAP) Pulse Ox O2 Delivery O2 Flow Rate FiO2 11/05/17 06:35 62 158/76 (103) 11/05/17 04:30 96.8 61 17 188/77 (114) 98 11/04/17 23:53 97.8 68 17 140/73 (95) 96 11/04/17 21:20 96.6 64 16 179/75 (109) 92 11/04/17 17:21 20 11/04/17 16:47 94 21 11/04/17 16:00 96.3 66 18 141/83 (102) 94 11/04/17 14:47 20 11/04/17 13:19 20 11/04/17 12:00 97.5 61 18 163/63 (96) 94 11/04/17 09:44 98 11/04/17 08:00 96.4 67 18 172/77 (108) 92 I/O 11/04/17 11/04/17 11/04/17 11/05/17 11/05/17 11/05/17 07:00 15:00 23:00 07:00 15:00 23:00 Intake Total 480 ml 1080 ml 0 ml Balance 480 ml 1080 ml 0 ml Intake Oral 480 ml 1080 ml 0 ml # Voids 1 5 3 # Bowel Movements 0 0 0 Result Diagram: 11/02/17 1216 11/02/17 1216 Imaging Last Impressions Thoracic Spine CT 11/02/17 0000 Signed Impressions: Service Date/Time: Thursday, November 02, 2017 13:48 - CONCLUSION: 1. 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 Although suboptimally evaluated with CT, there is large amount of epidural tumor extension at these levels with significant spinal canal compromise. 2. Additional foci of metastatic disease at T7, T8 and likely T11. Please see above discussion. 3. MRI examination may be performed to further evaluate degree of epidural extension as clinically indicated. Kendall Butler MD Cervical Spine CT 11/02/17 0000 Signed Impressions: Service Date/Time: Thursday, November 02, 2017 13:38 - CONCLUSION: 1. 3 lytic lesions consistent with either metastatic disease or multiple myeloma. There is extension into the central canal involving the C3 lesion as detailed above. Carter Almodovar Jr., MD Breast Ultrasound 10/30/17 2213 Signed Impressions: Service Date/Time: Monday, October 30, 2017 22:25 - CONCLUSION: 1. Mass in left breast measuring up to 3 cm in diameter. Ultrasound core biopsy recommended. Jovanny Sal MD Head CT 10/30/17 1304 Signed Impressions: Service Date/Time: Monday, October 30, 2017 14:20 - CONCLUSION: Intracranial contents are unremarkable. Scattered nonspecific lucencies in the calvarium. Ulises Mckoy MD FACR Chest CT 10/30/17 0000 Signed Impressions: Service Date/Time: Monday, October 30, 2017 14:26 - CONCLUSION: The examination demonstrates a destructive lesion involving what are probably the T5 and T6 vertebral bodies. There does appear to be significant canal compromise with epidural spread of disease. This is highly suspicious for malignancy. Dedicated MRI imaging is warranted for further assessment. This lesion would be amenable to CT-guided biopsy for sampling. Papa Mckoy MD Abdomen/Pelvis CT 10/30/17 0000 Signed Impressions: Service Date/Time: Monday, October 30, 2017 14:26 - CONCLUSION: 1. Punctate nonobstructing stones in the kidneys bilaterally. 2. CT examination is otherwise within normal limits for age. Papa Mckoy MD Objective Remarks awake and alert anicteric lungs- no rales regular rhythm abdomen soft, nontender extremities no edema moves all extremities spontaneously, no calf swelling or tenderness sensory intact A/P Problem List: (1) Pathologic thoracic fracture ICD Code: M84.48XA - Pathological fracture, other site, initial encounter for fracture Status: Acute (2) Metastatic bone cancer ICD Code: C41.9 - Malignant neoplasm of bone and articular cartilage, unspecified Status: Acute (3) Cervical spinal stenosis ICD Code: M48.02 - Spinal stenosis, cervical region Assessment and Plan 62-year-old female with a history of chronic back pain, tobacco use who presented to the emergency department on the advice of her primary care provider due to abnormal MRI of her cervical and thoracic spine. MRI studies essentially shows multiple lesions throughout her thoracic, lumbar vertebrae. Cervical spine also shows occipital bone involvement as well. Patient has no history of any malignancy. No weight loss. Cervical Spinal canal stenosis. - Probable metastatic bone lesions - T5 , T6 pathologic fractures - Metastatic epidural spread - Left Breast mass - Neurosurgery and Oncology following. - Pain better controlled. Continue schedule Oramorph. morphine IV, Percocet when necessary.- in crease Morphine -On dexamethasone 4 mg IV every 8 hours. - for cervical decompression today. plan for eventual thoracic procedure next -Hypertension- on amlodipine - Hypokalemia -resolved. Smoker- 1 pck per day counselled. Full code. Lovenox - held- for surgery Problem Qualifiers (1) Pathologic thoracic fracture: Qualified Codes: M84.48XA - Pathological fracture, other site, initial encounter for fracture Matteo Taylor MD Nov 05, 2017 07:29
[2017-11-05] MEDS: amLODIPine BESYLATE 5 MG TAB PO SCH (07:33)
[2017-11-05] MEDS: SODIUM CHLORIDE 0.9% FLUSH 10 ML FLUSH IV FLUSH SCH ×2 (07:33→20:03)
[2017-11-05 08:00] VITALS: BP 145/65; PULSE 55; RESP 18; TEMP 96.9; O2SAT 93
[2017-11-05 11:00] LABS: BACTERIA, URINE OCC /hpf; BILIRUBIN, URINE NEG (NEG); BLOOD, URINE NEG (NEG); GLUCOSE,URINE NEG (NEG); KETONE, URINE NEG (NEG); NITRITE,URINE NEG (NEG); PH, URINE 6.5 (5.0-8.5); SQUAMOUS EPITHELIAL CELL URINE <1 /hpf (0-5); URINE COLOR YELLOW (YELLW/STRAW); URINE LEUKOCYTE ESTERASE NEG (NEG)
[2017-11-05] MEDS ORDERED: NALOXONE HCL 0.4 MG/ML AMP ONE (11:45)
[2017-11-05] MEDS ORDERED: DO NOT ADM ANY ANTICOAGULANT DRUGS PRN (11:49)
[2017-11-05] MEDS ORDERED: PROPOFOL 200 MG/20 ML AMP IV ONE (12:00)
[2017-11-05] MEDS ORDERED: DEXAMETHASONE SOD PHOS 4 MG/ML VIAL IV ONE (12:00)
[2017-11-05] MEDS ORDERED: ROCURONIUM INJ 50 MG/5 ML SYRINGE IV PUSH ONE (12:00)
[2017-11-05] MEDS ORDERED: LACTATED RINGER'S 1000 ML INJ 1,000 ML IV ONE (12:00)
[2017-11-05] MEDS ORDERED: LIDOCAINE HCL 1% PF 5 ML SYRINGE OTHER ONE (12:00)
[2017-11-05] MEDS ORDERED: NEOSTIGMINE 5 MG/5 ML SYRINGE IV PUSH ONE (12:00)
[2017-11-05] MEDS ORDERED: ePHEDrine/NS 25 MG/5 ML SYRINGE IV ONE (12:00)
[2017-11-05] MEDS ORDERED: GLYCOPYRROLATE 1 MG/5 ML SYRINGE IV PUSH ONE (12:00)
[2017-11-05] MEDS ORDERED: ONDANSETRON HCL 4 MG/2 ML VIAL IV ONE (12:00)
--- NOTE | 2017-11-05 12:10 | PD.OP ---
cc: Renetta Avilez MD Operative Report Date of Surgery: Nov 05, 2017 Preoperative Diagnosis: Severe cervical C4-5 and C5 6 stenosis with spinal cord compression and associated myelopathy from disc osteophyte complex and ossified posterior longitudinal ligament Postoperative Diagnosis: Same Procedure: Anterior cervical partial C4 corpectomy, complete C5 corpectomy, and partial C6 corpectomy; anterior C4-6 interbody allograft fusion; anterior C4-6 cervical plate placement; microsurgical technique Anesthesia: Gen. endotracheal by Althea davalos Surgeon: Kory Bell M.D. Community Support Worker(s): Christy Monique Operation and Findings: Following administration of general endotracheal anesthesia with the neck maintained in neutral position a Norton collar, the patient received a gram of vancomycin and Decadron 10 mg intravenously. Sequential compression devices were placed in supine position on a Larry table and all pressure points adequately padded. The head secured in a donut and anterior cervical region then shaved and prepped with Chloraprep and sterilely draped with Ioban along with the usual sterile draping. A transverse skin incision on the left side of the neck was then made after infiltrating the skin with 0.5% Marcaine with epinephrine solution extending down through the platysma. At the anterior border of the sternocleidomastoid further dissection was undertaken developing a plane between the carotid sheath laterally and the trachea esophagus medially. The prevertebral fascia was exposed and dissected out. The medial attachments of the longus colli muscles were detached and a self-retaining retractor used for exposure. The C4-5 disc space was localized with a marking the disc space and using lateral fluoroscopy. [place] distraction screws 14 mm length were placed one in the C4 and one in the C6 body interbody distraction and exposure. There was significant disc degeneration with disc height collapse and anterior osteophytes noted at both C4-5 and C5-6 levels and the osteophytes were resected with a Leksell and annulus incised with a 15 blade and further dissection undertaken using microtechnique with microscope magnification. Diskectomy was undertaken with pituitaries and the endplates were also decorticated with curettes and drill bit. And more posteriorly there was disk osteophyte complex compressing the thecal sac along with a significant uncovertebral joint hypertrophy with foraminal stenosis which was decompressed along with removal of the calcified posterior longitudinal ligament at both levels. In order to decompress the spinal canal from the severe disc osteophyte complex along with calcified posterior longitudinal ligament which is compressing severely the thecal sac and spinal cord, partial C4, complete C5 and partial C6 corpectomies had been undertaken with removal of the inferior half of the C4 superior half of the C6 body along with C5 complete the vertebral body resection. She did have osteopenia noted also. The foramen was decompressed bilaterally using a Kerrison's and palpation with a nerve hook, the exiting nerve roots were felt to be free. The area was then copiously irrigated. I then placed a tricortical allograft bone extending from the C4 to C6 vertebral body under fluoroscopy guidance. [place] distraction pins were removed and the holes plugged with Gelfoam for hemostasis. In order to facilitate the fusion and provide stabilization, a Precision spine cervical plate was then placed with two 14 mm variable angle screws in the C4 body and two 14 mm fixed angle screws in the C6 body. The plate screw locking mechanism was then engaged. AP and lateral fluoroscopy confirmed good placement of the construct and the retractor was then removed. Muscular bleeding points were cauterized with bipolar cautery and Gelfoam was then also used for hemostasis which was removed. The platysma was then approximated using 3-0 Vicryl interrupted stitches and 3-0 Vicryl subcuticular stitch also placed in an interrupted fashion, and final skin closure was with Mastisol and Steri-Strips. Sterile dressing was then applied. The neck was then immobilized in a Norton collar. The patient was then extubated and taken to the recovery room. There are no intraoperative complications and all sponge and needle counts were correct at the end of procedure. Estimated blood loss was about 250 cc. The patient did undergo intraoperative neurologic monitoring which remained stable throughout the surgery. Kory Bell MD Nov 05, 2017 12:10
[2017-11-05] MEDS: NS + KCL 20 MEQ INJ 1,000 ML IV SCH (13:45)
[2017-11-05 14:32] VITALS: BP 139/71; PULSE 71; RESP 18; TEMP 99.2; O2SAT 98
--- NOTE | 2017-11-05 15:37 | RADRPT ---
EXAM DATE/TIME: 11/05/2017 08:07 [facility] COMPARISON: No previous studies available for comparison. INDICATIONS : Fusion C4,C5 and C5,C6 with screw and plate placement. MEDICAL HISTORY : Hypertension. Fracture t -spine,pathologic SURGICAL HISTORY : None. ENCOUNTER: Subsequent ACUITY: 4 - 6 days PAIN SCORE: Non-responsive. LOCATION: Cervical spine. FINDINGS: 2 images of the cervical region were recorded digitally in the operating room using C-arm after place ment of anterior cervical plate. CONCLUSION: Intraoperative images. Carter Carver MD on November 05, 2017 at 15:35 Board Certified Radiologist. This report was verified electronically.
[2017-11-05 16:03] VITALS: O2SAT 98
[2017-11-05] MEDS: RESP: ALBUTEROL 2.5 MG/IPRATROPIUM 0.5 MG NEB (SCH) NEB ×2 (18:57→21:20)
[2017-11-05 20:20] VITALS: BP 161/73; PULSE 82; RESP 19; TEMP 97.4; O2SAT 96
[2017-11-06] VITALS (8 sets, daily range): BP systolic 149–188; BP diastolic 69–94; PULSE 63–75; RESP 16–19; TEMP 96.7–97.5; O2SAT 96–97
[2017-11-06] MEDS: NS + KCL 20 MEQ INJ 1,000 ML IV SCH ×3 (00:45→20:43)
[2017-11-06] MEDS: RESP: ALBUTEROL 2.5 MG/IPRATROPIUM 0.5 MG NEB (SCH) NEB ×4 (03:05→21:16)
[2017-11-06] MEDS: DEXAMETHASONE SOD PHOS 4 MG/ML VIAL IV PUSH SCH ×3 (04:59→20:36)
[2017-11-06] MEDS: MORPHINE SULFATE 30 MG CONTROLLED RELEASE TAB PO SCH ×3 (05:00→20:37)
[2017-11-06] MEDS: PANTOPRAZOLE SOD 40 MG DELAYED RELEASE TAB PO SCH (07:54)
[2017-11-06] MEDS: amLODIPine BESYLATE 5 MG TAB PO SCH (07:54)
[2017-11-06] MEDS: oxyCODONE/ACETAMINOPHEN 7.5 MG/325 MG TAB PO PRN ×3 (07:57→21:51)
[2017-11-06] MEDS: SODIUM CHLORIDE 0.65% NASAL DRP/SPRY 30 ML BTL EACH NARE SCH ×2 (09:00→20:40)
[2017-11-06] MEDS: SODIUM CHLORIDE 0.9% FLUSH 10 ML FLUSH IV FLUSH SCH ×2 (09:00→20:37)
--- NOTE | 2017-11-06 15:22 | HHI.NSPN ---
(Jori Flores) History Chief Complaint: Thoracic spine pain controlled with pain medication. (Jori Flores) Interval History This is a 62-year-old female patient without previous significant medical history. She presents at the request of her primary care physician because of continued pain in her back. The patient apparently was seen by her primary care physician who ordered an MRI of the cervical and thoracic spine and because of abnormal findings, she was sent to the emergency room here at [facility] for further evaluation. The patient reports having pain for approximately one month in the mid-back. She denies any neck pain and denies any lower back pain. She denies any radiation of pain to the arms or any radiation of pain into the legs. She denies any numbness. She reports that she is ambulatory without any problems. The patient reports she does not regularly see a physician, and denies any other medical problems. 11/02/17: Pt awakens to voice complains of mid back thoracic spine pain with radiation into bilateral ribs under her breast bilaterally. She denies any numbness or paresthesias in her chest or LEs. She states she has a chronic history of stress and urge incontinence but no marysol incontinence. No weakness in LEs. She denies any neck pain. 11/03/17: Patient is awake and alert. She complains of mid thoracic back pain radiating under her breasts bilaterally. She also complains of left triceps tightness/discomfort. Patient states that she has not discussed with the rest of her family her options. 11/04/17: Pt states when laying down her neck pain is controlled. She does have some discomfort/tightness in the right triceps area. No paresthesias in UEs or LEs. She has good strength on testing in LEs. Mild 4/5 left deltoid, triceps and biceps strength. Pt states she is ready to have surgery tomorrow. 11/06/17: Pt awake and alert. She states the pain and strength in the LUE is improved. (Jori Flores) Review of Systems General: Negative for: fever, chills, insomnia Respiratory: Negative for: shortness of breath, cough, sputum Cardiovascular: Negative for: chest pain Gastrointestinal: Negative for: nausea, vomitting, diarrhea, constipation ( Jori Flores) Exam Results Vital Signs Date Time Temp Pulse Resp B/P (MAP) Pulse Ox O2 Delivery O2 Flow Rate FiO2 11/06/17 15:18 97 Nasal Cannula 2.00 11/06/17 11:48 96.7 66 17 165/77 (106) 11/04/17 16:47 21 Intake and Output 11/06/17 11/06/17 11/07/17 08:00 16:00 00:00 Intake Total 240 ml Output Total 600 ml Balance -360 ml (Jori Flores) Physical Examination General: Pt awake and alert laying in bed. Custom TLSO brace with cervical collar at bedside. Eyes: Pupils equal. Sclera anicteric. Resp: CTA bilaterally Heart: NSR no murmurs Abd: soft positive bs Skin: No cyanosis or erythema Muscle: Left deltoid, triceps, and biceps weakness 4/5 strength in UEs and LEs 5/5. Neuro: Pt awake and alert. Follows commands well. Speech clear and appropriate. Sensation intact in UEs and LEs. (Jori Flores) Medical Decision Making Impression and Plan A: 62 y/o FM with severe C4-5 and C5-6 spinal stenosis with cord compression and spinal canals reduced down to less than 4 mm at both these levels with partial ossification of posterior longitudinal ligament. There are also lytic lesions involving C3 and C5 vertebral body. s/p C4/C5 and C5/C6 anterior cervical fusion on 11/05/17. She has very destructive T5 as well as T4 and T6 vertebral body lesions with severe kyphosis vertebral body height collapse along with the spinal canal involvement from the pathologic fracture and tumor. There is also partial pedicle involvement at the T7 and T8 pedicle and vertebral body. P: Continue with pain control We plan on thoracic stabilization surgery next week. (Jori Flores) Attending Statement The exam, history, and the medical decision-making described in the above note were completed with the assistance of the mid-level provider. I reviewed and agree with the findings presented. I attest that I had a [id number] encounter with the patient on the same day, and personally performed and documented my assessment and findings in the medical record. Doing well postoperatively from the cervical spine surgery with resolved left upper extremity pain and improved strength. Tolerating regular diet. Plan posterior thoracic stabilization for next Thursday. Patient is in agreement. (Kory Bell MD) Jori Flores Nov 06, 2017 3:22 pm Kory Bell MD Nov 06, 2017 4:15 pm
--- NOTE | 2017-11-06 15:31 | HHI.PR ---
Objective Vitals Vital Signs Date Time Temp Pulse Resp B/P (MAP) Pulse Ox O2 Delivery O2 Flow Rate FiO2 11/06/17 15:18 97 Nasal Cannula 2.00 11/06/17 11:48 96.7 66 17 165/77 (106) 96 11/06/17 08:16 96 Nasal Cannula 2.00 11/06/17 08:00 97.2 72 17 164/70 (101) 97 11/06/17 04:25 96.9 74 19 153/79 (103) 96 11/06/17 00:30 97.5 75 19 149/69 (95) 97 11/05/17 20:20 97.4 82 19 161/73 (102) 96 11/05/17 20:00 Nasal Cannula 2.00 11/05/17 16:03 98 Nasal Cannula 2.00 I/O 11/05/17 11/05/17 11/05/17 11/06/17 11/06/17 11/06/17 07:00 15:00 23:00 07:00 15:00 23:00 Intake Total 0 ml 1300 ml 240 ml 240 ml Output Total 525 ml 700 ml 600 ml Balance 0 ml 775 ml -460 ml -360 ml Intake Oral 0 ml 240 ml 240 ml IV Total 1300 ml Output Urine Total 275 ml 700 ml 600 ml Estimated Blood Loss 250 ml # Voids 3 # Bowel Movements 0 0 0 Result Diagram: 11/02/17 1216 11/02/17 1216 Objective Remarks awake and alert anicteric lungs- no rales regular rhythm abdomen soft, nontender extremities no edema moves all extremities spontaneously, no calf swelling or tenderness sensory intact Procedures 11/05 Anterior cervical partial C4 corpectomy, complete C5 corpectomy, and partial C6 corpectomy; anterior C4-6 interbody allograft fusion; anterior C4-6 cervical plate placement; microsurgical technique A/P Problem List: (1) Pathologic thoracic fracture ICD Code: M84.48XA - Pathological fracture, other site, initial encounter for fracture Status: Acute (2) Metastatic bone cancer ICD Code: C41.9 - Malignant neoplasm of bone and articular cartilage, unspecified Status: Acute (3) Cervical spinal stenosis ICD Code: M48.02 - Spinal stenosis, cervical region Assessment and Plan 62-year-old female with a history of chronic back pain, tobacco use who presented to the emergency department on the advice of her primary care provider due to abnormal MRI of her cervical and thoracic spine. MRI studies essentially shows multiple lesions throughout her thoracic, lumbar vertebrae. Cervical spine also shows occipital bone involvement as well. Patient has no history of any malignancy. No weight loss. Cervical Spinal canal stenosis. - Probable metastatic bone lesions - T5 , T6 pathologic fractures - Metastatic epidural spread - Left Breast mass - Neurosurgery and Oncology following. - Pain better controlled. Continue schedule Oramorph. morphine IV, Percocet when necessary.- in crease Morphine -On dexamethasone 4 mg IV every 8 hours. - for cervical decompression today. plan for eventual thoracic procedure next - HYpertesnion- on amlodipine - Hypokalemia -resolved. Full code. Lovenox - held- for surgery Problem Qualifiers (1) Pathologic thoracic fracture: Qualified Codes: M84.48XA - Pathological fracture, other site, initial encounter for fracture Matteo Taylor MD Nov 06, 2017 15:31
--- NOTE | 2017-11-06 15:37 | HHI.PR ---
Subjective Remarks patient very feisty and interactive very motivated [pain well controlled good po Objective Vitals Vital Signs Date Time Temp Pulse Resp B/P (MAP) Pulse Ox O2 Delivery O2 Flow Rate FiO2 11/06/17 15:18 97 Nasal Cannula 2.00 11/06/17 11:48 96.7 66 17 165/77 (106) 96 11/06/17 08:16 96 Nasal Cannula 2.00 11/06/17 08:00 97.2 72 17 164/70 (101) 97 11/06/17 04:25 96.9 74 19 153/79 (103) 96 11/06/17 00:30 97.5 75 19 149/69 (95) 97 11/05/17 20:20 97.4 82 19 161/73 (102) 96 11/05/17 20:00 Nasal Cannula 2.00 11/05/17 16:03 98 Nasal Cannula 2.00 I/O 11/05/17 11/05/17 11/05/17 11/06/17 11/06/17 11/06/17 07:00 15:00 23:00 07:00 15:00 23:00 Intake Total 0 ml 1300 ml 240 ml 240 ml Output Total 525 ml 700 ml 600 ml Balance 0 ml 775 ml -460 ml -360 ml Intake Oral 0 ml 240 ml 240 ml IV Total 1300 ml Output Urine Total 275 ml 700 ml 600 ml Estimated Blood Loss 250 ml # Voids 3 # Bowel Movements 0 0 0 Result Diagram: 11/02/17 1216 11/02/17 1216 Imaging Last Impressions Cervical Spine X-Ray 11/05/17 0000 Signed Impressions: Service Date/Time: October 08:07 - CONCLUSION: Intraoperative images. Carter Carver MD Thoracic Spine CT 11/02/17 0000 Signed Impressions: Service Date/Time: Thursday, November 02, 2017 13:48 - CONCLUSION: 1. 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 Although suboptimally evaluated with CT, there is large amount of epidural tumor extension at these levels with significant spinal canal compromise. 2. Additional foci of metastatic disease at T7, T8 and likely T11. Please see above discussion. 3. MRI examination may be performed to further evaluate degree of epidural extension as clinically indicated. Kendall Butler MD Cervical Spine CT 11/02/17 0000 Signed Impressions: Service Date/Time: Thursday, November 02, 2017 13:38 - CONCLUSION: 1. 3 lytic lesions consistent with either metastatic disease or multiple myeloma. There is extension into the central canal involving the C3 lesion as detailed above. Carter Almodovar Jr., MD Breast Ultrasound 10/30/17 2213 Signed Impressions: Service Date/Time: Monday, October 30, 2017 22:25 - CONCLUSION: 1. Mass in left breast measuring up to 3 cm in diameter. Ultrasound core biopsy recommended. Jovanny Sal MD Head CT 10/30/17 1304 Signed Impressions: Service Date/Time: Monday, October 30, 2017 14:20 - CONCLUSION: Intracranial contents are unremarkable. Scattered nonspecific lucencies in the calvarium. Ulises Mckoy MD FACR Chest CT 10/30/17 0000 Signed Impressions: Service Date/Time: Monday, October 30, 2017 14:26 - CONCLUSION: The examination demonstrates a destructive lesion involving what are probably the T5 and T6 vertebral bodies. There does appear to be significant canal compromise with epidural spread of disease. This is highly suspicious for malignancy. Dedicated MRI imaging is warranted for further assessment. This lesion would be amenable to CT-guided biopsy for sampling. Papa Mckoy MD Abdomen/Pelvis CT 10/30/17 0000 Signed Impressions: Service Date/Time: Monday, October 30, 2017 14:26 - CONCLUSION: 1. Punctate nonobstructing stones in the kidneys bilaterally. 2. CT examination is otherwise within normal limits for age. Papa Mckoy MD Objective Remarks awake and alert anicteric cervical collar in place lungs- no rales, no wheezes regular rhythm abdomen soft, nontender extremities no edema moves all extremities - good hand audio visual coordinator, moves both legs spontaneously grossly sensory intact Procedures 11/05 Anterior cervical partial C4 corpectomy, complete C5 corpectomy, and partial C6 corpectomy; anterior C4-6 interbody allograft fusion; anterior C4-6 cervical plate placement; microsurgical technique Urinary Catheter: Yes Assessment to: Continue Phipps insert reason: Surgical/Invasive Proced Date of Insertion: Nov 05, 2017 A/P Problem List: (1) Pathologic thoracic fracture ICD Code: M84.48XA - Pathological fracture, other site, initial encounter for fracture Status: Acute (2) Metastatic bone cancer ICD Code: C41.9 - Malignant neoplasm of bone and articular cartilage, unspecified Status: Acute (3) Cervical spinal stenosis ICD Code: M48.02 - Spinal stenosis, cervical region Assessment and Plan 62-year-old female with a history of chronic back pain, tobacco use who presented to the emergency department on the advice of her primary care provider due to abnormal MRI of her cervical and thoracic spine. MRI studies essentially shows multiple lesions throughout her thoracic, lumbar vertebrae. Cervical spine also shows occipital bone involvement as well. Patient has no history of any malignancy. No weight loss. Cervical Spinal stenosis.S/P Anterior cervical partial C4 corpectomy, complete C5 corpectomy, and partial C6 corpectomy; anterior C4-6 interbody allograft fusion; anterior C4-6 cervical plate placement; microsurgical technique-11/05 - Probable metastatic bone lesions - T5 , T6 pathologic fractures - Metastatic epidural spread - Left Breast mass - Neurosurgery and Oncology following. - Pain better controlled. Continue schedule Oramorph. morphine IV, Percocet when necessary.- in crease Morphine -On dexamethasone 4 mg IV every 8 hours. - for further decompression- plan for eventual thoracic procedure next - Hypetension on amlodipine 10 mg daily - Hypokalemia -resolved. - smoker- counselled "no more" Full code. Lovenox - held- for surgery Problem Qualifiers (1) Pathologic thoracic fracture: Qualified Codes: M84.48XA - Pathological fracture, other site, initial encounter for fracture Matteo Taylor MD Nov 06, 2017 15:37
[2017-11-06] MEDS: MAGNESIUM HYDROXIDE SUSP 30 ML CUP PO PRN (20:36)
[2017-11-07] VITALS (11 sets, daily range): BP systolic 155–199; BP diastolic 65–97; PULSE 54–71; RESP 16–18; TEMP 96.6–97.9; O2SAT 95–98
[2017-11-07] MEDS: RESP: ALBUTEROL 2.5 MG/IPRATROPIUM 0.5 MG NEB (SCH) NEB ×4 (03:14→20:36)
[2017-11-07] MEDS: NS + KCL 20 MEQ INJ 1,000 ML IV SCH ×3 (04:38→20:14)
[2017-11-07] MEDS: MORPHINE SULFATE 30 MG CONTROLLED RELEASE TAB PO SCH ×3 (04:39→20:13)
[2017-11-07] MEDS: DEXAMETHASONE SOD PHOS 4 MG/ML VIAL IV PUSH SCH ×3 (04:45→20:13)
--- NOTE | 2017-11-07 07:35 | HHI.PR ---
Subjective Remarks awake and alert, having upper back pain 7 out of 10- pain meds helping but not lasting long enough moves all extremities spontaneously Objective Vitals Vital Signs Date Time Temp Pulse Resp B/P (MAP) Pulse Ox O2 Delivery O2 Flow Rate FiO2 11/07/17 05:19 19 11/07/17 04:00 97.2 71 18 164/65 (98) 97 11/07/17 03:16 96 Nasal Cannula 2.00 11/07/17 00:00 97.3 66 16 155/65 (95) 97 11/06/17 23:50 Nasal Cannula 2.00 11/06/17 22:52 18 11/06/17 20:00 97.1 68 16 178/81 (113) 97 11/06/17 16:00 96.8 63 17 188/94 (125) 96 11/06/17 15:18 97 Nasal Cannula 2.00 11/06/17 11:48 96.7 66 17 165/77 (106) 96 11/06/17 08:16 96 Nasal Cannula 2.00 11/06/17 08:00 97.2 72 17 164/70 (101) 97 I/O 11/06/17 11/06/17 11/06/17 11/07/17 11/07/17 11/07/17 07:00 15:00 23:00 07:00 15:00 23:00 Intake Total 240 ml 480 ml 1300 ml 1240 ml Output Total 600 ml 545 ml 500 ml 900 ml Balance -360 ml -65 ml 800 ml 340 ml Intake Oral 240 ml 480 ml 300 ml 240 ml IV Total 1000 ml 1000 ml Output Urine Total 600 ml 545 ml 500 ml 900 ml # Bowel Movements 0 0 0 Imaging Last Impressions Cervical Spine X-Ray 11/05/17 0000 Signed Impressions: Service Date/Time: October 08:07 - CONCLUSION: Intraoperative images. Carter Carver MD Thoracic Spine CT 11/02/17 0000 Signed Impressions: Service Date/Time: Thursday, November 02, 2017 13:48 - CONCLUSION: 1. 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 Although suboptimally evaluated with CT, there is large amount of epidural tumor extension at these levels with significant spinal canal compromise. 2. Additional foci of metastatic disease at T7, T8 and likely T11. Please see above discussion. 3. MRI examination may be performed to further evaluate degree of epidural extension as clinically indicated. Kendall Butler MD Cervical Spine CT 11/02/17 0000 Signed Impressions: Service Date/Time: Thursday, November 02, 2017 13:38 - CONCLUSION: 1. 3 lytic lesions consistent with either metastatic disease or multiple myeloma. There is extension into the central canal involving the C3 lesion as detailed above. Carter Almodovar Jr., MD Breast Ultrasound 10/30/17 2213 Signed Impressions: Service Date/Time: Monday, October 30, 2017 22:25 - CONCLUSION: 1. Mass in left breast measuring up to 3 cm in diameter. Ultrasound core biopsy recommended. Jovanny Sal MD Head CT 10/30/17 1304 Signed Impressions: Service Date/Time: Monday, October 30, 2017 14:20 - CONCLUSION: Intracranial contents are unremarkable. Scattered nonspecific lucencies in the calvarium. Ulises Mckoy MD FACR Chest CT 10/30/17 0000 Signed Impressions: Service Date/Time: Monday, October 30, 2017 14:26 - CONCLUSION: The examination demonstrates a destructive lesion involving what are probably the T5 and T6 vertebral bodies. There does appear to be significant canal compromise with epidural spread of disease. This is highly suspicious for malignancy. Dedicated MRI imaging is warranted for further assessment. This lesion would be amenable to CT-guided biopsy for sampling. Papa Mckoy MD Abdomen/Pelvis CT 10/30/17 0000 Signed Impressions: Service Date/Time: Monday, October 30, 2017 14:26 - CONCLUSION: 1. Punctate nonobstructing stones in the kidneys bilaterally. 2. CT examination is otherwise within normal limits for age. 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 grossly sensory intact Procedures 11/05 Anterior cervical partial C4 corpectomy, complete C5 corpectomy, and partial C6 corpectomy; anterior C4-6 interbody allograft fusion; anterior C4-6 cervical plate placement; microsurgical technique Urinary Catheter: Yes Assessment to: Continue Phipps insert reason: Prolonged Immobilization Date of Insertion: Nov 05, 2017 A/P Problem List: (1) Pathologic thoracic fracture ICD Code: M84.48XA - Pathological fracture, other site, initial encounter for fracture Status: Acute (2) Metastatic bone cancer ICD Code: C41.9 - Malignant neoplasm of bone and articular cartilage, unspecified Status: Acute (3) Cervical spinal stenosis ICD Code: M48.02 - Spinal stenosis, cervical region Assessment and Plan 62-year-old female with a history of chronic back pain, tobacco use who presented to the emergency department on the advice of her primary care provider due to abnormal MRI of her cervical and thoracic spine. MRI studies essentially shows multiple lesions throughout her thoracic, lumbar vertebrae. Cervical spine also shows occipital bone involvement as well. Patient has no history of any malignancy. No weight loss. Cervical Spinal stenosis.S/P Anterior cervical partial C4 corpectomy, complete C5 corpectomy, and partial C6 corpectomy; anterior C4-6 interbody allograft fusion; anterior C4-6 cervical plate placement; microsurgical technique-11/05 - Probable metastatic bone lesions - T5 , T6 pathologic fractures - Metastatic epidural spread - Left Breast mass - Neurosurgery and Oncology following. Continue schedule Oramorph. morphine IV, Percocet when necessary -On dexamethasone 4 mg IV every 8 hours. - for further decompression- plan for eventual thoracic procedure/ stabilization next weeks Increase Lortab to q 4 prn. continue on Morphine 30 mg q 8 colace for constipation - HYpertension- some elevated readings continue on amlodipine 10 mg daily add low dose Lopresor 12.5 mg po bid - Hypokalemia -resolved. - smoker- 1 pack per day - "no more" counselled Incetive spirometry hourly Full code. Lovenox - held-- post spinal surgery TEDs/SCDs Problem Qualifiers (1) Pathologic thoracic fracture: Qualified Codes: M84.48XA - Pathological fracture, other site, initial encounter for fracture Matteo Taylor MD Nov 07, 2017 07:35
[2017-11-07] MEDS ORDERED: PILL SPLITTER OTHER PRN (08:00)
[2017-11-07] MEDS: amLODIPine BESYLATE 5 MG TAB PO SCH (09:28)
[2017-11-07] MEDS: PANTOPRAZOLE SOD 40 MG DELAYED RELEASE TAB PO SCH (09:28)
[2017-11-07] MEDS: METOPROLOL TARTRATE 25 MG TAB PO SCH ×2 (09:28→20:13)
[2017-11-07] MEDS: DOCUSATE SODIUM 100 MG CAP PO SCH ×2 (09:28→20:12)
[2017-11-07] MEDS: oxyCODONE/ACETAMINOPHEN 7.5 MG/325 MG TAB PO PRN ×2 (09:29→17:50)
[2017-11-07] MEDS: SODIUM CHLORIDE 0.65% NASAL DRP/SPRY 30 ML BTL EACH NARE SCH ×2 (09:29→20:13)
[2017-11-07] MEDS: SODIUM CHLORIDE 0.9% FLUSH 10 ML FLUSH IV FLUSH SCH ×2 (09:29→20:14)
[2017-11-07] MEDS: cloNIDine HCL 0.1 MG TAB PO PRN (13:32)
--- NOTE | 2017-11-07 15:45 | HHI.NSPN ---
(Jori Flores) History Chief Complaint: Thoracic spine pain controlled with pain medication. (Jori Flores) Interval History This is a 62-year-old female patient without previous significant medical history. She presents at the request of her primary care physician because of continued pain in her back. The patient apparently was seen by her primary care physician who ordered an MRI of the cervical and thoracic spine and because of abnormal findings, she was sent to the emergency room here at [facility] for further evaluation. The patient reports having pain for approximately one month in the mid-back. She denies any neck pain and denies any lower back pain. She denies any radiation of pain to the arms or any radiation of pain into the legs. She denies any numbness. She reports that she is ambulatory without any problems. The patient reports she does not regularly see a physician, and denies any other medical problems. 11/02/17: Pt awakens to voice complains of mid back thoracic spine pain with radiation into bilateral ribs under her breast bilaterally. She denies any numbness or paresthesias in her chest or LEs. She states she has a chronic history of stress and urge incontinence but no marysol incontinence. No weakness in LEs. She denies any neck pain. 11/03/17: Patient is awake and alert. She complains of mid thoracic back pain radiating under her breasts bilaterally. She also complains of left triceps tightness/discomfort. Patient states that she has not discussed with the rest of her family her options. 11/04/17: Pt states when laying down her neck pain is controlled. She does have some discomfort/tightness in the right triceps area. No paresthesias in UEs or LEs. She has good strength on testing in LEs. Mild 4/5 left deltoid, triceps and biceps strength. Pt states she is ready to have surgery tomorrow. 11/06/17: Pt awake and alert. She states the pain and strength in the LUE is improved. 11/07/17: Pt awake and alert. Complains of pain in thoracic spine with radiation under bilateral breasts. She states her cervical spine feels good without radiculopathy in UEs. (Jori Flores) Review of Systems General: Negative for: fever, chills, insomnia Respiratory: Negative for: shortness of breath, cough, sputum Cardiovascular: Negative for: chest pain Gastrointestinal: Negative for: nausea, vomitting, diarrhea, constipation ( Jori Flores) Exam Results Vital Signs Date Time Temp Pulse Resp B/P (MAP) Pulse Ox O2 Delivery O2 Flow Rate FiO2 11/07/17 13:28 57 199/97 (131) 11/07/17 11:47 96.9 17 98 11/07/17 08:11 Nasal Cannula 2.00 11/04/17 16:47 21 Intake and Output 11/07/17 11/07/17 11/08/17 08:00 16:00 00:00 Intake Total 1240 ml 800 ml Output Total 900 ml Balance 340 ml 800 ml (Jori Flores) Physical Examination General: Pt awake and alert laying in bed. Custom TLSO brace with cervical collar at bedside. Eyes: Pupils equal. Sclera anicteric. Resp: CTA bilaterally Heart: NSR no murmurs Abd: soft positive bs Skin: No cyanosis or erythema Muscle: Left deltoid, triceps, and biceps weakness improving 4+/5 otherwise 5/ 5 strength in UEs and LEs 5/5. [place] cervical collar in place. Neuro: Pt awake and alert. Follows commands well. Speech clear and appropriate. Sensation intact in UEs and LEs. (Jori Flores) Lab, Micro, Other Results Last Impressions Cervical Spine X-Ray 11/05/17 0000 Signed Impressions: Service Date/Time: October 08:07 - CONCLUSION: Intraoperative images. Carter Carver MD Thoracic Spine CT 11/02/17 0000 Signed Impressions: Service Date/Time: Thursday, November 02, 2017 13:48 - CONCLUSION: 1. 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 Although suboptimally evaluated with CT, there is large amount of epidural tumor extension at these levels with significant spinal canal compromise. 2. Additional foci of metastatic disease at T7, T8 and likely T11. Please see above discussion. 3. MRI examination may be performed to further evaluate degree of epidural extension as clinically indicated. Kendall Butler MD Cervical Spine CT 11/02/17 0000 Signed Impressions: Service Date/Time: Thursday, November 02, 2017 13:38 - CONCLUSION: 1. 3 lytic lesions consistent with either metastatic disease or multiple myeloma. There is extension into the central canal involving the C3 lesion as detailed above. Carter Almodovar Jr., MD Breast Ultrasound 10/30/17 2213 Signed Impressions: Service Date/Time: Monday, October 30, 2017 22:25 - CONCLUSION: 1. Mass in left breast measuring up to 3 cm in diameter. Ultrasound core biopsy recommended. Jovanny Sal MD Head CT 10/30/17 1304 Signed Impressions: Service Date/Time: Monday, October 30, 2017 14:20 - CONCLUSION: Intracranial contents are unremarkable. Scattered nonspecific lucencies in the calvarium. Ulises Mckoy MD FACR Chest CT 10/30/17 0000 Signed Impressions: Service Date/Time: Monday, October 30, 2017 14:26 - CONCLUSION: The examination demonstrates a destructive lesion involving what are probably the T5 and T6 vertebral bodies. There does appear to be significant canal compromise with epidural spread of disease. This is highly suspicious for malignancy. Dedicated MRI imaging is warranted for further assessment. This lesion would be amenable to CT-guided biopsy for sampling. Papa Mckoy MD Abdomen/Pelvis CT 10/30/17 0000 Signed Impressions: Service Date/Time: Monday, October 30, 2017 14:26 - CONCLUSION: 1. Punctate nonobstructing stones in the kidneys bilaterally. 2. CT examination is otherwise within normal limits for age. Papa Mckoy MD 11/07/17 11/07/17 11/08/17 15:00 23:00 07:00 Intake Total 800 ml Balance 800 ml IV Total 800 ml (Jori Flores) Medical Decision Making Impression and Plan A: 62 y/o FM with severe C4-5 and C5-6 spinal stenosis with cord compression and spinal canals reduced down to less than 4 mm at both these levels with partial ossification of posterior longitudinal ligament. There are also lytic lesions involving C3 and C5 vertebral body. s/p C4/C5 and C5/C6 anterior cervical fusion on 11/05/17. She has very destructive T5 as well as T4 and T6 vertebral body lesions with severe kyphosis vertebral body height collapse along with the spinal canal involvement from the pathologic fracture and tumor. There is also partial pedicle involvement at the T7 and T8 pedicle and vertebral body. P: Continue with pain control We plan on thoracic stabilization surgery next week. (Jori Flores) Attending Statement The exam, history, and the medical decision-making described in the above note were completed with the assistance of the mid-level provider. I reviewed and agree with the findings presented. I attest that I had a [id number] encounter with the patient on the same day, and personally performed and documented my assessment and findings in the medical record. (Kory Bell MD) Jori Flores Nov 07, 2017 15:45 Kory Bell MD Nov 07, 2017 20:04
[2017-11-07] MEDS: MAGNESIUM HYDROXIDE SUSP 30 ML CUP PO PRN (20:12)
[2017-11-08] VITALS (9 sets, daily range): BP systolic 146–186; BP diastolic 69–85; PULSE 52–62; RESP 17–20; TEMP 96.4–97.4; O2SAT 93–98
[2017-11-08] MEDS: RESP: ALBUTEROL 2.5 MG/IPRATROPIUM 0.5 MG NEB (SCH) NEB ×4 (03:38→21:08)
[2017-11-08] MEDS: MORPHINE SULFATE 30 MG CONTROLLED RELEASE TAB PO SCH ×3 (03:59→20:16)
[2017-11-08] MEDS: LACTULOSE SYRUP 20 GM/30 ML CUP PO PRN (03:59)
[2017-11-08] MEDS: oxyCODONE/ACETAMINOPHEN 7.5 MG/325 MG TAB PO PRN ×3 (03:59→15:13)
[2017-11-08] MEDS: DEXAMETHASONE SOD PHOS 4 MG/ML VIAL IV PUSH SCH ×3 (05:11→20:16)
--- NOTE | 2017-11-08 08:23 | HHI.PR ---
Subjective Remarks pain much better with increased meds good po no nausea or vomiting no shortness of breath + flatus Objective Vitals Vital Signs Date Time Temp Pulse Resp B/P (MAP) Pulse Ox O2 Delivery O2 Flow Rate FiO2 11/08/17 07:40 98 21 11/08/17 05:17 56 165/72 (103) 11/08/17 05:17 98 Room Air 11/08/17 04:22 97.4 56 20 186/80 (115) 98 11/07/17 23:56 97.9 59 18 161/72 (101) 95 11/07/17 20:37 97 Nasal Cannula 2.00 11/07/17 20:13 99 Nasal Cannula 2.00 11/07/17 20:00 97.6 57 18 166/69 (101) 97 11/07/17 15:52 96.8 54 17 164/69 (100) 97 11/07/17 13:28 57 199/97 (131) 11/07/17 11:47 96.9 59 17 186/68 (107) 98 I/O 11/07/17 11/07/17 11/07/17 11/08/17 11/08/17 11/08/17 07:00 15:00 23:00 07:00 15:00 23:00 Intake Total 1240 ml 1280 ml 1040 ml Output Total 900 ml 1225 ml 1200 ml Balance 340 ml 55 ml -160 ml Intake Oral 240 ml 480 ml 240 ml IV Total 1000 ml 800 ml 800 ml Output Urine Total 900 ml 1225 ml 1200 ml # Bowel Movements 0 0 Imaging Last Impressions Cervical Spine X-Ray 11/05/17 0000 Signed Impressions: Service Date/Time: October 08:07 - CONCLUSION: Intraoperative images. Carter Carver MD Thoracic Spine CT 11/02/17 0000 Signed Impressions: Service Date/Time: Thursday, November 02, 2017 13:48 - CONCLUSION: 1. 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 Although suboptimally evaluated with CT, there is large amount of epidural tumor extension at these levels with significant spinal canal compromise. 2. Additional foci of metastatic disease at T7, T8 and likely T11. Please see above discussion. 3. MRI examination may be performed to further evaluate degree of epidural extension as clinically indicated. Kendall Butler MD Cervical Spine CT 11/02/17 0000 Signed Impressions: Service Date/Time: Thursday, November 02, 2017 13:38 - CONCLUSION: 1. 3 lytic lesions consistent with either metastatic disease or multiple myeloma. There is extension into the central canal involving the C3 lesion as detailed above. Carter Almodovar Jr., MD Breast Ultrasound 10/30/17 2213 Signed Impressions: Service Date/Time: Monday, October 30, 2017 22:25 - CONCLUSION: 1. Mass in left breast measuring up to 3 cm in diameter. Ultrasound core biopsy recommended. Jovanny Sal MD Head CT 10/30/17 1304 Signed Impressions: Service Date/Time: Monday, October 30, 2017 14:20 - CONCLUSION: Intracranial contents are unremarkable. Scattered nonspecific lucencies in the calvarium. Ulises Mckoy MD FACR Chest CT 10/30/17 0000 Signed Impressions: Service Date/Time: Monday, October 30, 2017 14:26 - CONCLUSION: The examination demonstrates a destructive lesion involving what are probably the T5 and T6 vertebral bodies. There does appear to be significant canal compromise with epidural spread of disease. This is highly suspicious for malignancy. Dedicated MRI imaging is warranted for further assessment. This lesion would be amenable to CT-guided biopsy for sampling. Papa Mckoy MD Abdomen/Pelvis CT 10/30/17 0000 Signed Impressions: Service Date/Time: Monday, October 30, 2017 14:26 - CONCLUSION: 1. Punctate nonobstructing stones in the kidneys bilaterally. 2. CT examination is otherwise within normal limits for age. 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 motor equal grossly sensory intact Procedures 11/05 Anterior cervical partial C4 corpectomy, complete C5 corpectomy, and partial C6 corpectomy; anterior C4-6 interbody allograft fusion; anterior C4-6 cervical plate placement; microsurgical technique Urinary Catheter: Yes Assessment to: Continue Phipps insert reason: Unstable Thoracic Spine Date of Insertion: Nov 05, 2017 A/P Problem List: (1) Pathologic thoracic fracture ICD Code: M84.48XA - Pathological fracture, other site, initial encounter for fracture Status: Acute (2) Metastatic bone cancer ICD Code: C41.9 - Malignant neoplasm of bone and articular cartilage, unspecified Status: Acute (3) Cervical spinal stenosis ICD Code: M48.02 - Spinal stenosis, cervical region Assessment and Plan 62-year-old female with a history of chronic back pain, tobacco use who presented to the emergency department on the advice of her primary care provider due to abnormal MRI of her cervical and thoracic spine. MRI studies essentially shows multiple lesions throughout her thoracic, lumbar vertebrae. Cervical spine also shows occipital bone involvement as well. Patient has no history of any malignancy. No weight loss. Cervical Spinal stenosis.S/P Anterior cervical partial C4 corpectomy, complete C5 corpectomy, and partial C6 corpectomy; anterior C4-6 interbody allograft fusion; anterior C4-6 cervical plate placement; microsurgical technique-11/05 - Probable metastatic bone lesions - T5 , T6 pathologic fractures - Metastatic epidural spread - Left Breast mass - Neurosurgery and Oncology following. Continue schedule Oramorph. morphine IV, Percocet when necessary -On dexamethasone 4 mg IV every 8 hours. - for further decompression- plan for eventual thoracic procedure/ stabilization this week continue Lortab to q 4 prn. continue on Morphine 30 mg q 8 colace for constipation - HYpertension- some elevated readings continue on amlodipine 10 mg daily. Lopresor 12.5 mg po bid- add Enalapril 2.5 mg po daily - Hypokalemia -resolved. BMP in am - smoker- 1 pack per day - "no more" counselled. Duoneb prn Incetive spirometry hourly Full code. Lovenox - held-- post spinal surgery TEDs/SCDs Problem Qualifiers (1) Pathologic thoracic fracture: Qualified Codes: M84.48XA - Pathological fracture, other site, initial encounter for fracture Matteo Taylor MD Nov 08, 2017 08:23
[2017-11-08] MEDS: METOPROLOL TARTRATE 25 MG TAB PO SCH ×2 (08:50→20:16)
[2017-11-08] MEDS: SODIUM CHLORIDE 0.9% FLUSH 10 ML FLUSH IV FLUSH SCH ×2 (08:50→20:16)
[2017-11-08] MEDS: amLODIPine BESYLATE 5 MG TAB PO SCH (08:50)
[2017-11-08] MEDS: PANTOPRAZOLE SOD 40 MG DELAYED RELEASE TAB PO SCH (08:50)
[2017-11-08] MEDS: DOCUSATE SODIUM 100 MG CAP PO SCH ×2 (08:50→20:16)
[2017-11-08] MEDS: MAGNESIUM HYDROXIDE SUSP 30 ML CUP PO PRN (08:55)
[2017-11-08] MEDS: SODIUM CHLORIDE 0.65% NASAL DRP/SPRY 30 ML BTL EACH NARE SCH ×2 (08:57→20:16)
[2017-11-08] MEDS: ENALAPRIL MALEATE 2.5 MG TAB PO SCH (09:00)
--- NOTE | 2017-11-08 12:58 | HHI.NSPN ---
History Chief Complaint: Thoracic spine pain controlled with pain medication. Interval History This is a 62-year-old female patient without previous significant medical history. She presents at the request of her primary care physician because of continued pain in her back. The patient apparently was seen by her primary care physician who ordered an MRI of the cervical and thoracic spine and because of abnormal findings, she was sent to the emergency room here at [place] for further evaluation. The patient reports having pain for approximately one month in the mid-back. She denies any neck pain and denies any lower back pain. She denies any radiation of pain to the arms or any radiation of pain into the legs. She denies any numbness. She reports that she is ambulatory without any problems. The patient reports she does not regularly see a physician, and denies any other medical problems. 11/02/17: Pt awakens to voice complains of mid back thoracic spine pain with radiation into bilateral ribs under her breast bilaterally. She denies any numbness or paresthesias in her chest or LEs. She states she has a chronic history of stress and urge incontinence but no marysol incontinence. No weakness in LEs. She denies any neck pain. 11/03/17: Patient is awake and alert. She complains of mid thoracic back pain radiating under her breasts bilaterally. She also complains of left triceps tightness/discomfort. Patient states that she has not discussed with the rest of her family her options. 11/04/17: Pt states when laying down her neck pain is controlled. She does have some discomfort/tightness in the right triceps area. No paresthesias in UEs or LEs. She has good strength on testing in LEs. Mild 4/5 left deltoid, triceps and biceps strength. Pt states she is ready to have surgery tomorrow. 11/06/17: Pt awake and alert. She states the pain and strength in the LUE is improved. 11/07/17: Pt awake and alert. Complains of pain in thoracic spine with radiation under bilateral breasts. She states her cervical spine feels good without radiculopathy in UEs. 11/08/17: Pt awakens to voice. Denies any neck pain. Left arm tightness and discomfort resolved. Review of Systems General: Negative for: fever, chills, insomnia Respiratory: Negative for: shortness of breath, cough, sputum Cardiovascular: Negative for: chest pain Gastrointestinal: Negative for: nausea, vomitting, diarrhea, constipation Exam Results Vital Signs Date Time Temp Pulse Resp B/P (MAP) Pulse Ox O2 Delivery O2 Flow Rate FiO2 11/08/17 12:00 96.4 52 17 166/78 (107) 93 11/08/17 07:40 21 11/08/17 05:17 Room Air 11/07/17 20:37 2.00 Intake and Output 11/08/17 11/08/17 11/09/17 08:00 16:00 00:00 Intake Total 1040 ml Output Total 1200 ml Balance -160 ml Physical Examination General: Pt awake and alert laying in bed. Custom TLSO brace with cervical collar at bedside. Eyes: Pupils equal. Sclera anicteric. Resp: CTA bilaterally Heart: NSR no murmurs Abd: soft positive bs Skin: No cyanosis or erythema Muscle: Left deltoid, triceps, and biceps weakness improving 4+/5 otherwise 5/ 5 strength in UEs and LEs 5/5. [place] cervical collar in place. Neuro: Pt awake and alert. Follows commands well. Speech clear and appropriate. Sensation intact in UEs and LEs. Lab, Micro, Other Results Last Impressions Cervical Spine X-Ray 11/05/17 0000 Signed Impressions: Service Date/Time: October 08:07 - CONCLUSION: Intraoperative images. Carter Carver MD Thoracic Spine CT 11/02/17 0000 Signed Impressions: Service Date/Time: Thursday, November 02, 2017 13:48 - CONCLUSION: 1. 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 Although suboptimally evaluated with CT, there is large amount of epidural tumor extension at these levels with significant spinal canal compromise. 2. Additional foci of metastatic disease at T7, T8 and likely T11. Please see above discussion. 3. MRI examination may be performed to further evaluate degree of epidural extension as clinically indicated. Kendall Butler MD Cervical Spine CT 11/02/17 0000 Signed Impressions: Service Date/Time: Thursday, November 02, 2017 13:38 - CONCLUSION: 1. 3 lytic lesions consistent with either metastatic disease or multiple myeloma. There is extension into the central canal involving the C3 lesion as detailed above. Carter Almodovar Jr., MD Breast Ultrasound 10/30/17 2213 Signed Impressions: Service Date/Time: Monday, October 30, 2017 22:25 - CONCLUSION: 1. Mass in left breast measuring up to 3 cm in diameter. Ultrasound core biopsy recommended. Jovanny Sal MD Head CT 10/30/17 1304 Signed Impressions: Service Date/Time: Monday, October 30, 2017 14:20 - CONCLUSION: Intracranial contents are unremarkable. Scattered nonspecific lucencies in the calvarium. Ulises Mckoy MD FACR Chest CT 10/30/17 0000 Signed Impressions: Service Date/Time: Monday, October 30, 2017 14:26 - CONCLUSION: The examination demonstrates a destructive lesion involving what are probably the T5 and T6 vertebral bodies. There does appear to be significant canal compromise with epidural spread of disease. This is highly suspicious for malignancy. Dedicated MRI imaging is warranted for further assessment. This lesion would be amenable to CT-guided biopsy for sampling. Papa Mckoy MD Abdomen/Pelvis CT 10/30/17 0000 Signed Impressions: Service Date/Time: Monday, October 30, 2017 14:26 - CONCLUSION: 1. Punctate nonobstructing stones in the kidneys bilaterally. 2. CT examination is otherwise within normal limits for age. Papa Mckoy MD Medical Decision Making Impression and Plan A: 62 y/o FM with severe C4-5 and C5-6 spinal stenosis with cord compression and spinal canals reduced down to less than 4 mm at both these levels with partial ossification of posterior longitudinal ligament. There are also lytic lesions involving C3 and C5 vertebral body. s/p C4/C5 and C5/C6 anterior cervical fusion on 11/05/17. She has very destructive T5 as well as T4 and T6 vertebral body lesions with severe kyphosis vertebral body height collapse along with the spinal canal involvement from the pathologic fracture and tumor. There is also partial pedicle involvement at the T7 and T8 pedicle and vertebral body. P: Continue with pain control We plan on thoracic stabilization surgery next week. Jori Flores Nov 08, 2017 12:58 pm
[2017-11-08] MEDS: NS + KCL 20 MEQ INJ 1,000 ML IV SCH (14:49)
[2017-11-08] MEDS: ENOXAPARIN SODIUM 40 MG/0.4 ML SYRINGE SQ SCH (18:34)
[2017-11-09] VITALS (7 sets, daily range): BP systolic 148–191; BP diastolic 67–78; PULSE 52–73; RESP 17–20; TEMP 96.7–97.3; O2SAT 93–98
[2017-11-09] MEDS: oxyCODONE/ACETAMINOPHEN 7.5 MG/325 MG TAB PO PRN ×2 (00:57→05:09)
[2017-11-09] MEDS: RESP: ALBUTEROL 2.5 MG/IPRATROPIUM 0.5 MG NEB (SCH) NEB ×3 (03:32→15:54)
[2017-11-09] MEDS: MORPHINE SULFATE 30 MG CONTROLLED RELEASE TAB PO SCH ×3 (03:50→20:34)
[2017-11-09 05:51] LABS: HEMATOCRIT 47.1 % (35.0-46.0); HEMOGLOBIN 16.4 GM/DL (11.6-15.3); MEAN CELL VOLUME 101.8 FL (80.0-100.0); MEAN CORPUSCULAR HEMOGLOBIN 35.4 PG (27.0-34.0); MEAN CORPUSCULAR HGB CONC 34.8 % (32.0-36.0); MEAN PLATELET VOLUME 9.7 FL (7.0-11.0); PLATELET COUNT 207 TH/MM3 (150-450); RED BLOOD COUNT 4.63 MIL/MM3 (4.00-5.30); RED CELL DISTRIBUTION WIDTH 13.8 % (11.6-17.2); WHITE BLOOD COUNT 11.9 TH/MM3 (4.0-11.0)
[2017-11-09] MEDS: DEXAMETHASONE SOD PHOS 4 MG/ML VIAL IV PUSH SCH ×3 (06:02→20:49)
[2017-11-09 06:16] LABS: BICARBONATE 28.2 MEQ/L (21.0-32.0); CALCIUM 9.3 MG/DL (8.5-10.1); CREATININE 0.71 MG/DL (0.50-1.00)
--- NOTE | 2017-11-09 08:27 | HHI.PR ---
Subjective Remarks awake and alert no neck discomfort per patient had a BM last evening c/o pain left upper back - -did not get the scheduled Morphine dose last evening Objective Vitals Vital Signs Date Time Temp Pulse Resp B/P (MAP) Pulse Ox O2 Delivery O2 Flow Rate FiO2 11/09/17 08:16 98 21 11/09/17 06:50 Room Air 11/09/17 04:20 97.1 57 17 148/67 (94) 93 11/08/17 23:02 96.5 62 17 159/69 (99) 93 11/08/17 21:08 93 11/08/17 19:20 96.8 60 17 182/85 (117) 94 11/08/17 16:00 96.4 58 18 171/69 (103) 94 11/08/17 12:00 96.4 52 17 166/78 (107) 93 I/O 11/08/17 11/08/17 11/08/17 11/09/17 11/09/17 11/09/17 07:00 15:00 23:00 07:00 15:00 23:00 Intake Total 1040 ml 480 ml 480 ml 360 ml Output Total 1200 ml 900 ml 375 ml 250 ml Balance -160 ml -420 ml 105 ml 110 ml Intake Oral 240 ml 480 ml 480 ml 360 ml IV Total 800 ml Output Urine Total 1200 ml 900 ml 375 ml 250 ml # Bowel Movements 0 0 0 Result Diagram: 11/09/17 0448 11/09/17 0448 Imaging Last Impressions Cervical Spine X-Ray 11/05/17 0000 Signed Impressions: Service Date/Time: October 08:07 - CONCLUSION: Intraoperative images. Carter Carver MD Thoracic Spine CT 11/02/17 0000 Signed Impressions: Service Date/Time: Thursday, November 02, 2017 13:48 - CONCLUSION: 1. 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 Although suboptimally evaluated with CT, there is large amount of epidural tumor extension at these levels with significant spinal canal compromise. 2. Additional foci of metastatic disease at T7, T8 and likely T11. Please see above discussion. 3. MRI examination may be performed to further evaluate degree of epidural extension as clinically indicated. Kendall Butler MD Cervical Spine CT 11/02/17 0000 Signed Impressions: Service Date/Time: Thursday, November 02, 2017 13:38 - CONCLUSION: 1. 3 lytic lesions consistent with either metastatic disease or multiple myeloma. There is extension into the central canal involving the C3 lesion as detailed above. Carter Almodovar Jr., MD Breast Ultrasound 10/30/17 2213 Signed Impressions: Service Date/Time: Monday, October 30, 2017 22:25 - CONCLUSION: 1. Mass in left breast measuring up to 3 cm in diameter. Ultrasound core biopsy recommended. Jovanny Sal MD Head CT 10/30/17 1304 Signed Impressions: Service Date/Time: Monday, October 30, 2017 14:20 - CONCLUSION: Intracranial contents are unremarkable. Scattered nonspecific lucencies in the calvarium. Ulises Mckoy MD FACR Chest CT 10/30/17 0000 Signed Impressions: Service Date/Time: Monday, October 30, 2017 14:26 - CONCLUSION: The examination demonstrates a destructive lesion involving what are probably the T5 and T6 vertebral bodies. There does appear to be significant canal compromise with epidural spread of disease. This is highly suspicious for malignancy. Dedicated MRI imaging is warranted for further assessment. This lesion would be amenable to CT-guided biopsy for sampling. Ppaa Mckoy MD Abdomen/Pelvis CT 10/30/17 0000 Signed Impressions: Service Date/Time: Monday, October 30, 2017 14:26 - CONCLUSION: 1. Punctate nonobstructing stones in the kidneys bilaterally. 2. CT examination is otherwise within normal limits for age. Papa Mckoy MD Objective Remarks awake and alert anicteric cervical collar in place lungs- no rales, no wheezes regular rhythm abdomen soft, nontender extremities no edema moves all extremities - good hand ironer sock, raise both arms- Left UE- limited by pain moves both legs spontaneously strength equal grossly sensory intact Procedures 11/05 Anterior cervical partial C4 corpectomy, complete C5 corpectomy, and partial C6 corpectomy; anterior C4-6 interbody allograft fusion; anterior C4-6 cervical plate placement; microsurgical technique Urinary Catheter: Yes Phipps insert reason: Unstable Thoracic Spine Date of Insertion: Nov 05, 2017 A/P Problem List: (1) Pathologic thoracic fracture ICD Code: M84.48XA - Pathological fracture, other site, initial encounter for fracture Status: Acute (2) Metastatic bone cancer ICD Code: C41.9 - Malignant neoplasm of bone and articular cartilage, unspecified Status: Acute (3) Cervical spinal stenosis ICD Code: M48.02 - Spinal stenosis, cervical region Assessment and Plan 62-year-old female with a history of chronic back pain, tobacco use who presented to the emergency department on the advice of her primary care provider due to abnormal MRI of her cervical and thoracic spine. MRI studies essentially shows multiple lesions throughout her thoracic, lumbar vertebrae. Cervical spine also shows occipital bone involvement as well. Patient has no history of any malignancy. No weight loss. Cervical Spinal stenosis.S/P Anterior cervical partial C4 corpectomy, complete C5 corpectomy, and partial C6 corpectomy; anterior C4-6 interbody allograft fusion; anterior C4-6 cervical plate placement; microsurgical technique-11/05 - Probable metastatic bone lesions - T5 , T6 pathologic fractures - Metastatic epidural spread - Left Breast mass - Neurosurgery and Oncology following. Continue schedule Oramorph. morphine IV, Percocet when necessary - Continue on dexamethasone 4 mg IV every 8 hours. - for further decompression- plan for eventual thoracic procedure/ stabilization this week continue Lortab to q 4 prn. continue on Morphine 30 mg q 8. Prn IV Morphine for breakthrough pain- d/w staff nurse to give one now colace for constipation= + BMs - HYpertension- good readings this am continue on amlodipine 10 mg daily. Lopresor 12.5 mg po bid- added Enalapril 2.5 mg po daily 11/08 - Hypokalemia -resolved. ff BMP - smoker- 1 pack per day - "no more" counselled. Duoneb prn Incetive spirometry hourly Full code. Lovenox - held-- post spinal surgery TEDs/SCDs PT daily Problem Qualifiers (1) Pathologic thoracic fracture: Qualified Codes: M84.48XA - Pathological fracture, other site, initial encounter for fracture Matteo Taylor MD Nov 09, 2017 08:27
[2017-11-09] MEDS: PANTOPRAZOLE SOD 40 MG DELAYED RELEASE TAB PO SCH (08:45)
[2017-11-09] MEDS: amLODIPine BESYLATE 5 MG TAB PO SCH (08:45)
[2017-11-09] MEDS: ENALAPRIL MALEATE 2.5 MG TAB PO SCH (08:45)
[2017-11-09] MEDS: MORPHINE SULFATE 4 MG/ML INJ IV PUSH PRN ×6 (08:45→23:42)
[2017-11-09] MEDS: METOPROLOL TARTRATE 25 MG TAB PO SCH ×2 (08:46→20:34)
[2017-11-09] MEDS: DOCUSATE SODIUM 100 MG CAP PO SCH ×2 (08:46→20:34)
[2017-11-09] MEDS: SODIUM CHLORIDE 0.9% FLUSH 10 ML FLUSH IV FLUSH SCH ×2 (08:46→20:35)
[2017-11-09] MEDS: SODIUM CHLORIDE 0.65% NASAL DRP/SPRY 30 ML BTL EACH NARE SCH ×2 (08:46→20:35)
--- NOTE | 2017-11-09 14:14 | HHI.NSPN ---
(Jori Flores) History Chief Complaint: Thoracic spine pain controlled with pain medication. (Jori Flores) Interval History This is a 62-year-old female patient without previous significant medical history. She presents at the request of her primary care physician because of continued pain in her back. The patient apparently was seen by her primary care physician who ordered an MRI of the cervical and thoracic spine and because of abnormal findings, she was sent to the emergency room here at [place] for further evaluation. The patient reports having pain for approximately one month in the mid-back. She denies any neck pain and denies any lower back pain. She denies any radiation of pain to the arms or any radiation of pain into the legs. She denies any numbness. She reports that she is ambulatory without any problems. The patient reports she does not regularly see a physician, and denies any other medical problems. 11/02/17: Pt awakens to voice complains of mid back thoracic spine pain with radiation into bilateral ribs under her breast bilaterally. She denies any numbness or paresthesias in her chest or LEs. She states she has a chronic history of stress and urge incontinence but no marysol incontinence. No weakness in LEs. She denies any neck pain. 11/03/17: Patient is awake and alert. She complains of mid thoracic back pain radiating under her breasts bilaterally. She also complains of left triceps tightness/discomfort. Patient states that she has not discussed with the rest of her family her options. 11/04/17: Pt states when laying down her neck pain is controlled. She does have some discomfort/tightness in the right triceps area. No paresthesias in UEs or LEs. She has good strength on testing in LEs. Mild 4/5 left deltoid, triceps and biceps strength. Pt states she is ready to have surgery tomorrow. 11/06/17: Pt awake and alert. She states the pain and strength in the LUE is improved. 11/07/17: Pt awake and alert. Complains of pain in thoracic spine with radiation under bilateral breasts. She states her cervical spine feels good without radiculopathy in UEs. 11/08/17: Pt awakens to voice. Denies any neck pain. Left arm tightness and discomfort resolved. 11/09/17: Pt awake and alert. Complains of generally being uncomfortable from her back pain. She states the left upper extremity tightness is better. We plan on stabilizing her thoracic spine tomorrow. (Jori Flores) Review of Systems General: Negative for: fever, chills, insomnia Respiratory: Negative for: shortness of breath, cough, sputum Cardiovascular: Positive for: chest pain (radiating pain into ribs from her back.) Gastrointestinal: Negative for: nausea, vomitting, diarrhea, constipation ( Jori Flores) Exam Results Vital Signs Date Time Temp Pulse Resp B/P (MAP) Pulse Ox O2 Delivery O2 Flow Rate FiO2 11/09/17 12:00 96.8 64 17 154/69 (97) 95 11/09/17 08:16 21 11/09/17 06:50 Room Air 11/07/17 20:37 2.00 Intake and Output 11/09/17 11/09/17 11/10/17 08:00 16:00 00:00 Intake Total 360 ml Output Total 250 ml Balance 110 ml (Jori Flores) Physical Examination General: Pt awake and alert laying in bed. Custom TLSO brace with cervical collar at bedside. Eyes: Pupils equal. Sclera anicteric. Resp: CTA bilaterally Heart: NSR no murmurs Abd: soft positive bs Skin: No cyanosis or erythema. Incision clean and dry. Muscle: Left deltoid, triceps, and biceps weakness improving 4+/5 otherwise 5/ 5 strength in UEs and LEs 5/5. [place] cervical collar in place. Neuro: Pt awake and alert. Follows commands well. Speech clear and appropriate. Sensation intact in UEs and LEs. (Jori Flores) Lab, Micro, Other Results Last Impressions Cervical Spine X-Ray 11/05/17 0000 Signed Impressions: Service Date/Time: October 08:07 - CONCLUSION: Intraoperative images. Carter Carver MD Thoracic Spine CT 11/02/17 0000 Signed Impressions: Service Date/Time: Thursday, November 02, 2017 13:48 - CONCLUSION: 1. 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 Although suboptimally evaluated with CT, there is large amount of epidural tumor extension at these levels with significant spinal canal compromise. 2. Additional foci of metastatic disease at T7, T8 and likely T11. Please see above discussion. 3. MRI examination may be performed to further evaluate degree of epidural extension as clinically indicated. Kendall Butler MD Cervical Spine CT 11/02/17 0000 Signed Impressions: Service Date/Time: Thursday, November 02, 2017 13:38 - CONCLUSION: 1. 3 lytic lesions consistent with either metastatic disease or multiple myeloma. There is extension into the central canal involving the C3 lesion as detailed above. Carter Almodovar Jr., MD Breast Ultrasound 10/30/17 2213 Signed Impressions: Service Date/Time: Monday, October 30, 2017 22:25 - CONCLUSION: 1. Mass in left breast measuring up to 3 cm in diameter. Ultrasound core biopsy recommended. Jovanny Sal MD Head CT 10/30/17 1304 Signed Impressions: Service Date/Time: Monday, October 30, 2017 14:20 - CONCLUSION: Intracranial contents are unremarkable. Scattered nonspecific lucencies in the calvarium. Ulises Mckoy MD FACR Chest CT 10/30/17 0000 Signed Impressions: Service Date/Time: Monday, October 30, 2017 14:26 - CONCLUSION: The examination demonstrates a destructive lesion involving what are probably the T5 and T6 vertebral bodies. There does appear to be significant canal compromise with epidural spread of disease. This is highly suspicious for malignancy. Dedicated MRI imaging is warranted for further assessment. This lesion would be amenable to CT-guided biopsy for sampling. Papa Mckoy MD Abdomen/Pelvis CT 10/30/17 0000 Signed Impressions: Service Date/Time: Monday, October 30, 2017 14:26 - CONCLUSION: 1. Punctate nonobstructing stones in the kidneys bilaterally. 2. CT examination is otherwise within normal limits for age. Papa Mckoy MD Laboratory Tests Test 11/09/17 04:48 White Blood Count 11.9 TH/MM3 Red Blood Count 4.63 MIL/MM3 Hemoglobin 16.4 GM/DL Hematocrit 47.1 % Mean Corpuscular Volume 101.8 FL Mean Corpuscular Hemoglobin 35.4 PG Mean Corpuscular Hemoglobin Concent 34.8 % Red Cell Distribution Width 13.8 % Platelet Count 207 TH/MM3 Mean Platelet Volume 9.7 FL Blood Urea Nitrogen 27 MG/DL Creatinine 0.71 MG/DL Random Glucose 92 MG/DL Calcium Level 9.3 MG/DL Sodium Level 132 MEQ/L Potassium Level 4.6 MEQ/L Chloride Level 97 MEQ/L Carbon Dioxide Level 28.2 MEQ/L Anion Gap 7 MEQ/L Estimat Glomerular Filtration Rate 83 ML/MIN (Jori Flores) Medical Decision Making Impression and Plan A: 62 y/o FM with severe C4-5 and C5-6 spinal stenosis with cord compression and spinal canals reduced down to less than 4 mm at both these levels with partial ossification of posterior longitudinal ligament. There are also lytic lesions involving C3 and C5 vertebral body. s/p C4/C5 and C5/C6 anterior cervical fusion on 11/05/17. She has very destructive T5 as well as T4 and T6 vertebral body lesions with severe kyphosis vertebral body height collapse along with the spinal canal involvement from the pathologic fracture and tumor. There is also partial pedicle involvement at the T7 and T8 pedicle and vertebral body. P: Plan is to go to OR tomorrow for thoracic T4-T6 laminectomy with neoplasm resection and T2-T9 fusion with pedicle screw fixation. Continue with pain control Discussed surgery with pt, risks involved and obtained informed consent. (Jori Floers) Attending Statement The exam, history, and the medical decision-making described in the above note were completed with the assistance of the mid-level provider. I reviewed and agree with the findings presented. I attest that I had a [id number] encounter with the patient on the same day, and personally performed and documented my assessment and findings in the medical record. Discussed risks and benefits with the thoracic spine decompression and stabilization surgery along with the alternative of nonsurgical management. She is requesting to proceed with surgery and consents informed consent. Surgery planned for tomorrow. (Kory Bell MD) Jori Flores Nov 09, 2017 14:14 Kory Bell MD Nov 09, 2017 18:07
--- NOTE | 2017-11-09 14:32 | PD.ONC.PN ---
Subjective Subjective Remarks Afebrile Patient complaining of back pain States she is not looking forward to second part of surgery tomorrow Objective Data Date Time Temp Pulse Resp B/P (MAP) Pulse Ox O2 Delivery O2 Flow Rate FiO2 11/09/17 12:00 96.8 64 17 154/69 (97) 95 11/09/17 08:16 98 21 11/09/17 08:00 96.9 52 17 191/73 (112) 93 11/09/17 06:50 Room Air 11/09/17 04:20 97.1 57 17 148/67 (94) 93 11/08/17 23:02 96.5 62 17 159/69 (99) 93 11/08/17 21:08 93 11/08/17 19:20 96.8 60 17 182/85 (117) 94 11/08/17 16:00 96.4 58 18 171/69 (103) 94 11/09/17 11/09/17 11/09/17 07:00 15:00 23:00 Intake Total 360 ml Output Total 250 ml Balance 110 ml Result Diagram: 11/09/17 0448 11/09/17 0448 Laboratory Results Laboratory Tests Test 11/09/17 04:48 White Blood Count 11.9 TH/MM3 Red Blood Count 4.63 MIL/MM3 Hemoglobin 16.4 GM/DL Hematocrit 47.1 % Mean Corpuscular Volume 101.8 FL Mean Corpuscular Hemoglobin 35.4 PG Mean Corpuscular Hemoglobin Concent 34.8 % Red Cell Distribution Width 13.8 % Platelet Count 207 TH/MM3 Mean Platelet Volume 9.7 FL Blood Urea Nitrogen 27 MG/DL Creatinine 0.71 MG/DL Random Glucose 92 MG/DL Calcium Level 9.3 MG/DL Sodium Level 132 MEQ/L Potassium Level 4.6 MEQ/L Chloride Level 97 MEQ/L Carbon Dioxide Level 28.2 MEQ/L Anion Gap 7 MEQ/L Estimat Glomerular Filtration Rate 83 ML/MIN Administered Medications Medications (Trade) Dose Ordered Sig/Sandra Route PRN Reason Start Time Stop Time Status Last Admin Dose Admin Sodium Chloride (NS Flush) 2 ml UNSCH PRN IV FLUSH FLUSH AFTER USING IV ACCESS 10/30/17 15:45 11/04/17 14:43 Sodium Chloride (NS Flush) 2 ml BID IV FLUSH 10/30/17 21:00 11/09/17 08:46 Magnesium Hydroxide (Milk Of Magnesia Liq) 30 ml Q12H PRN PO Mild constipation 10/30/17 15:45 11/08/17 08:55 Sennosides (Senokot) 17.2 mg Q12H PRN PO Moderate constipation 10/30/17 15:45 11/03/17 00:15 Lactulose (Lactulose Liq) 30 ml DAILY PRN PO SEVERE CONSITIPATION 10/30/17 15:45 11/08/17 03:59 Morphine Sulfate (Morphine Inj) 4 mg Q3H PRN IV PUSH BREAKTHROUGH PAIN 10/30/17 16:15 11/09/17 11:49 Enoxaparin Sodium (Lovenox Inj) 40 mg Q24H SQ 10/30/17 19:00 Future Hold 11/08/17 18:34 Clonidine (Catapres) 0.1 mg Q6H PRN PO SBP> OR = 180, DBP> OR = 100 10/31/17 21:45 11/07/17 13:32 Pantoprazole Sodium (Protonix) 40 mg DAILY PO 11/01/17 16:00 11/09/17 08:45 Amlodipine Besylate (Norvasc) 10 mg DAILY PO 11/01/17 16:00 11/09/17 08:45 Morphine Sulfate (Oramorph Sr) 30 mg Q8H PO 11/03/17 20:00 11/09/17 11:50 Sodium Chloride (Baby [place]inner Saline 0.65% Delio Drp/ [place]) 2 drop BID EACH NARE 11/03/17 21:00 11/08/17 20:16 Dexamethasone Sodium Phosphate (Decadron Inj) 4 mg Q8HR IV PUSH 11/04/17 22:00 11/09/17 06:02 Potassium Chloride/Sodium Chloride 1,000 ml @ 42 mls/hr [id number] IV 11/05/17 13:00 11/07/17 13:25 Albuterol/ Ipratropium (Duoneb Neb) 1 ampule Q6HR NEB NEB 11/05/17 18:20 11/09/17 08:09 Metoprolol Tartrate (Lopressor) 12.5 mg Q12HR PO 11/07/17 09:00 11/08/17 20:16 Docusate Sodium (Colace) 100 mg BID PO 11/07/17 09:00 11/09/17 08:46 Oxycodone/ Acetaminophen (Percocet 7.5-325 Mg) 1 tab Q4H PRN PO PAIN 4-10 11/07/17 16:30 11/09/17 05:09 Enalapril Maleate (Vasotec) 2.5 mg DAILY PO 11/08/17 09:00 11/09/17 08:45 Objective Remarks GENERAL: Disheveled-appearing older female resting in bed in no obvious distress SKIN: Warm and dry. HEAD: Normocephalic. Patient wearing [place] collar EYES: No injection or drainage. NECK: Supple, trachea midline. CARDIOVASCULAR: Regular rate and rhythm without murmurs. RESPIRATORY: Breath sounds equal bilaterally. No accessory muscle use. GASTROINTESTINAL: Abdomen soft, non-tender, nondistended. EXTREMITIES: No cyanosis, or edema. NEUROLOGICAL: No obvious focal deficit. Moving all extremities. Assessment/Plan Problem List: (1) Breast mass ICD Codes: N63.0 - Unspecified lump in unspecified breast Status: Chronic Plan: If breast cancer, ER is at time diffcult to discern from bone,unless there is a soft tissue component to the metastasis in the back. 11/09/17: Discussed with Jori Flores, neurosurgery. They were unable to get biopsy of cervical tissue. Plan to get biopsy of thoracic tissue with 2nd surgery tomorrow. Assessment 62y/o female with breast mass and suspected spinal metastatic lesions. h/o chronic back pain. ++chronic tobacco use Plan 1. Await biopsy specimen from thoracic surgery tomorrow 2. Continue prn pain medication as ordered 3. Need biopsy specimen from above surgeries for diagnosis. Discussed with Jori Flores PA with Dr Bell Attending Statement As discussed above, need pathology from surgery to determine dx or type of cancer. Nelsy Foster Nov 09, 2017 14:32 Renetta Avilez MD Nov 09, 2017 18:07
[2017-11-09] MEDS: NS + KCL 20 MEQ INJ 1,000 ML IV SCH (14:38)
[2017-11-09] MEDS ORDERED: LACTATED RINGER'S 1000 ML IV PRN (22:15)
[2017-11-09] MEDS ORDERED: CHLORHEXIDINE GLUCONATE 2 % 1 PACK (2 CLOTHS) TOPICAL PRN (22:15)
[2017-11-09] MEDS ORDERED: POVIDONE IODINE 5% (ANTISEPSIS KIT) 4 APPLICATIONS EACH NARE PRN (22:15)
[2017-11-09] MEDS ORDERED: SODIUM CHLORID 0.9% 500 ML IV PRN (22:15)
[2017-11-10] VITALS (9 sets, daily range): BP systolic 139–195; BP diastolic 54–76; PULSE 56–65; RESP 12–22; TEMP 95.9–97.7; O2SAT 92–100
[2017-11-10] MEDS: ONDANSETRON HCL 4 MG/2 ML VIAL IVP PRN (00:50)
[2017-11-10] MEDS: DEXAMETHASONE SOD PHOS 4 MG/ML VIAL IV PUSH SCH ×3 (04:55→22:35)
[2017-11-10] MEDS: MORPHINE SULFATE 4 MG/ML INJ IV PUSH PRN ×2 (04:55→09:20)
[2017-11-10] MEDS: MORPHINE SULFATE 30 MG CONTROLLED RELEASE TAB PO SCH ×2 (04:55→20:00)
[2017-11-10] MEDS: DOCUSATE SODIUM 100 MG CAP PO SCH ×2 (09:00→21:00)
[2017-11-10] MEDS: SODIUM CHLORIDE 0.65% NASAL DRP/SPRY 30 ML BTL EACH NARE SCH ×3 (09:00→22:49)
[2017-11-10] MEDS: ENALAPRIL MALEATE 2.5 MG TAB PO SCH (09:16)
[2017-11-10] MEDS: PANTOPRAZOLE SOD 40 MG DELAYED RELEASE TAB PO SCH (09:16)
[2017-11-10] MEDS: METOPROLOL TARTRATE 25 MG TAB PO SCH ×2 (09:17→21:00)
[2017-11-10] MEDS: SODIUM CHLORIDE 0.9% FLUSH 10 ML FLUSH IV FLUSH SCH ×3 (09:17→22:36)
[2017-11-10] MEDS: amLODIPine BESYLATE 5 MG TAB PO SCH (09:17)
[2017-11-10] MEDS ORDERED: FAMOTIDINE 20 MG/2 ML VIAL ONE (10:12)
[2017-11-10] MEDS ORDERED: DEXMEDETOMIDINE HCL 200 MCG/2 ML VIAL ONE (11:21)
[2017-11-10] MEDS ORDERED: THROMBIN (TOPICAL) 5,000 UNIT VIAL ONE ×2 (11:21→12:02)
[2017-11-10] MEDS ORDERED: BUPIVACAINE/EPINEPHRINE 0.25% 50 ML VIAL ONE (11:21)
[2017-11-10] MEDS ORDERED: VANCOMYCIN HCL 1000 MG VIAL ONE ×3 (11:22→13:29)
[2017-11-10] MEDS ORDERED: ACETAMINOPHEN 1000 MG/100 ML 100 ML IV ONE (11:23)
[2017-11-10] MEDS ORDERED: SODIUM CHLOR 0.9% 250 ML INJ 250 ML ONE (11:24)
[2017-11-10] MEDS ORDERED: PROPOFOL 500 MG/50 ML INJ 150 ML ONE (11:24)
[2017-11-10] MEDS ORDERED: BUPIVACAINE/EPINEPHRINE 0.5% PF 30 ML VIAL ONE (11:32)
[2017-11-10] MEDS ORDERED: PHENYLEPH/NS 1000 MCG/10 ML SYR IV ONE (12:00)
[2017-11-10] MEDS ORDERED: PROPOFOL 200 MG/20 ML AMP IV ONE (12:00)
[2017-11-10] MEDS ORDERED: LIDOCAINE HCL 1% PF 5 ML SYRINGE OTHER ONE (12:00)
[2017-11-10] MEDS ORDERED: ROCURONIUM INJ 50 MG/5 ML SYRINGE IV PUSH ONE (12:00)
[2017-11-10] MEDS ORDERED: ePHEDrine/NS 25 MG/5 ML SYRINGE IV ONE (12:00)
[2017-11-10] MEDS ORDERED: GLYCOPYRROLATE 1 MG/5 ML SYRINGE IV PUSH ONE (12:00)
[2017-11-10] MEDS ORDERED: LACTATED RINGER'S 1000 ML INJ 3,000 ML IV ONE (12:00)
[2017-11-10] MEDS ORDERED: ONDANSETRON HCL 4 MG/2 ML VIAL IV ONE (12:00)
[2017-11-10] MEDS ORDERED: DEXAMETHASONE SOD PHOS 4 MG/ML VIAL IV ONE (12:00)
[2017-11-10] MEDS ORDERED: GELFOAM SIZE 100 ONE ×2 (12:02→12:03)
--- NOTE | 2017-11-10 12:32 | HHI.PR ---
Subjective Remarks Follow-up history of breast cancer/rule out spinal metastases 11/10/17-patient seen and examined, complains of neck pain, denies any radiation to bilateral upper extremities. Denies any lower extremity pain. Currently nothing by mouth pending laminectomy. Afebrile Objective Vitals Vital Signs Date Time Temp Pulse Resp B/P (MAP) Pulse Ox O2 Delivery O2 Flow Rate FiO2 11/10/17 08:40 92 21 11/10/17 07:38 95.9 61 18 195/76 (115) 94 11/10/17 04:45 96.9 56 18 161/71 (101) 93 11/10/17 00:45 96.8 65 22 141/68 (92) 93 11/09/17 20:35 Room Air 11/09/17 20:30 96.7 73 20 163/78 (106) 95 11/09/17 16:00 97.3 70 18 159/76 (103) 95 11/09/17 15:54 97 21 I/O 11/09/17 11/09/17 11/09/17 11/10/17 11/10/17 11/10/17 07:00 15:00 23:00 07:00 15:00 23:00 Intake Total 360 ml 240 ml 240 ml 0 ml Output Total 250 ml 700 ml 450 ml 650 ml Balance 110 ml -460 ml -210 ml -650 ml Intake Oral 360 ml 240 ml 240 ml 0 ml Output Urine Total 250 ml 700 ml 450 ml 650 ml # Bowel Movements 0 0 0 0 Result Diagram: 11/09/17 0448 11/09/17 0448 Imaging Last Impressions Cervical Spine X-Ray 11/05/17 0000 Signed Impressions: Service Date/Time: October 08:07 - CONCLUSION: Intraoperative images. Carter Carver MD Thoracic Spine CT 11/02/17 0000 Signed Impressions: Service Date/Time: Thursday, November 02, 2017 13:48 - CONCLUSION: 1. 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 Although suboptimally evaluated with CT, there is large amount of epidural tumor extension at these levels with significant spinal canal compromise. 2. Additional foci of metastatic disease at T7, T8 and likely T11. Please see above discussion. 3. MRI examination may be performed to further evaluate degree of epidural extension as clinically indicated. Kendall Butler MD Cervical Spine CT 11/02/17 0000 Signed Impressions: Service Date/Time: Thursday, November 02, 2017 13:38 - CONCLUSION: 1. 3 lytic lesions consistent with either metastatic disease or multiple myeloma. There is extension into the central canal involving the C3 lesion as detailed above. Carter Almodovar Jr., MD Breast Ultrasound 10/30/17 2213 Signed Impressions: Service Date/Time: Monday, October 30, 2017 22:25 - CONCLUSION: 1. Mass in left breast measuring up to 3 cm in diameter. Ultrasound core biopsy recommended. Jovanny Sal MD Head CT 10/30/17 1304 Signed Impressions: Service Date/Time: Monday, October 30, 2017 14:20 - CONCLUSION: Intracranial contents are unremarkable. Scattered nonspecific lucencies in the calvarium. Ulises Mckoy MD FACR Chest CT 10/30/17 0000 Signed Impressions: Service Date/Time: Monday, October 30, 2017 14:26 - CONCLUSION: The examination demonstrates a destructive lesion involving what are probably the T5 and T6 vertebral bodies. There does appear to be significant canal compromise with epidural spread of disease. This is highly suspicious for malignancy. Dedicated MRI imaging is warranted for further assessment. This lesion would be amenable to CT-guided biopsy for sampling. Papa Mckoy MD Abdomen/Pelvis CT 10/30/17 0000 Signed Impressions: Service Date/Time: Monday, October 30, 2017 14:26 - CONCLUSION: 1. Punctate nonobstructing stones in the kidneys bilaterally. 2. CT examination is otherwise within normal limits for age. Papa Mckoy MD Objective Remarks GENERAL: NAD with [place] neck collar in place SKIN: Warm and dry. HEAD: Normocephalic. EYES: No scleral icterus. No injection or drainage. NECK: TTP, trachea midline. No JVD or lymphadenopathy.[place] neck collar in place CARDIOVASCULAR: Regular rate and rhythm without murmurs, gallops, or rubs. RESPIRATORY: Breath sounds equal bilaterally. No accessory muscle use. GASTROINTESTINAL: Abdomen soft, non-tender, nondistended. MUSCULOSKELETAL: No cyanosis, or edema. BACK: Nontender without obvious deformity. No CVA tenderness. Procedures 11/05 Anterior cervical partial C4 corpectomy, complete C5 corpectomy, and partial C6 corpectomy; anterior C4-6 interbody allograft fusion; anterior C4-6 cervical plate placement; microsurgical technique Date of Insertion: Nov 05, 2017 A/P Problem List: (1) Pathologic thoracic fracture ICD Code: M84.48XA - Pathological fracture, other site, initial encounter for fracture Status: Acute (2) Metastatic bone cancer ICD Code: C41.9 - Malignant neoplasm of bone and articular cartilage, unspecified Status: Acute (3) Cervical spinal stenosis ICD Code: M48.02 - Spinal stenosis, cervical region Assessment and Plan 62-year-old female with Cervical Spinal stenosis.S/P Anterior cervical partial C4 corpectomy, complete C5 corpectomy, and partial C6 corpectomy; anterior C4-6 interbody allograft fusion; anterior C4-6 cervical plate placement; microsurgical technique-11/05 - Probable metastatic bone lesions - T5 , T6 pathologic fractures - Metastatic epidural spread - Left Breast mass - Neurosurgery and Oncology following. - Continue schedule Oramorph. morphine IV, Percocet when necessary - Continue on dexamethasone 4 mg IV every 8 hours. - Plan for T4-T6 laminectomy with neoplasm resection and T2-T9 fusion today 11/10/17 - Hypertension- good readings this am continue on amlodipine 10 mg daily. Lopressor 12.5 mg po bid, Enalapril 2.5 mg po daily - Hypokalemia-resolved - smoker- counselled. Duo neb prn Incentive spirometry Lovenox - held Problem Qualifiers (1) Pathologic thoracic fracture: Qualified Codes: M84.48XA - Pathological fracture, other site, initial encounter for fracture Jori James MD Nov 10, 2017 12:32
[2017-11-10] MEDS ORDERED: PROPOFOL 500 MG/50 ML INJ 100 ML ONE (14:25)
--- NOTE | 2017-11-10 16:59 | PD.OP ---
Operative Report Date of Surgery: Nov 10, 2017 Preoperative Diagnosis: Pathologic thoracic spine T4, T5 and T6 vertebral body fractures with epidural neoplasm and associated severe vertebral body height collapse and kyphosis Postoperative Diagnosis: Same Procedure: Thoracic posterolateral T2, T3, T4, T5, T6, T7, and T8 fusion with T2-8 pedicle screw fixation; thoracic T4, T5 and T6 transpedicular partial corpectomies; T4- T6 decompressive laminectomy with epidural neoplasm resection; decompressive laminectomy with epidural neoplasm resection; microsurgical technique Anesthesia: Gen. endotracheal by Althea davalos Surgeon: Kory Bell M.D. Hat Finisher(s): Christy Monique Operation and Findings: The procedure along with the risks and benefits involved were discussed with the patient including the option of nonsurgical management. She requested that we proceed with surgery and informed consent was obtained. Following initiation of a general endotracheal anesthesia patient a Phipps catheter placed on the sequential compression devices and was log rolled on a Larry table on chest rolls in the prone position and all pressure points adequately padded. The posterior thoracic lumbar was then shaved and prepped with alcohol along with ChloraPrep and sterilely draped with Ioban along with the usual sterile draping. Intraoperative fluoroscopy was used for level confirmation an incision in the midline made extending from that T2 to the T8 levels after infiltrating the skin with 0.5% Marcaine with epinephrine solution. The incision was extended down through the fascia and then using the subperiosteal plane the muscle attachments spinous processes and lamina along with the facets were detached from the T2-8 levels bilaterally. We had corrected the kyphosis to some extent with the positioning also. Further dissection was undertaken using microtechnique with microscope magnification. The T4-6 lamina were resected with a drill bit and Kerr[place] along with the underlying ligamentum flavum and the pedicle drilled out to gain access to the ventral aspect of the retropulsed bone pathologic fragments through the posterolateral approach. Dorsal epidural mass was also resected and the spinal canal decompressed. It was grayish brownish mass identified on the lateral and ventral aspect extending from T4-6 on the thecal sac and spinal cord. Using microtechnique with migraines medication this mass was removed in a piecemeal format and specimens sent for permanent pathology section. The T5 vertebral body was severely collapsed along with partial collapse of the T4 and T6 body with ventral masses involving the body compressing the thecal sac and partial corpectomy with resection of retropulsed areas along with the mass were also removed for ventral spinal canal decompression with extreme precaution taken his did not indent a little thecal sac from either side using posterolateral approach. Epidural venous stasis achieved with bipolar cautery along with Gelfoam and thrombin. No retraction or impingement of the thecal sac was undertaken for resection of the retropulsed vertebral body ventral fragments and a partial corpectomy undertaken using the pituitaries and curettes along with a right angle impactors to decompress the spinal canal ventrally. Subsequently pedicle screw fixation was undertaken using [place] spine screws with the entry point ejection of the transverse process and facet at the T2 and T3 levels as well as T7 and T8 levels bilaterally. AP and lateral fluoroscopy guidance was used to and subsequently tap and screw placement bilaterally extending from T2 and T8 levels which were then connected with the rods and locked in place with caps. I then decorticated the posterior lateral remnants of the laminae and facet lumbar transverse processes on the right side extending from T2-8 levels with a drill bit for posterolateral fusion. Cortical cancellus allograft bone chips along with demineralized bone matrix was used for posterior lateral fusion since the concern for bony metastasis her autograft bone was not used. The bone graft was then packed overlying the decorticated the posterior lateral elements extending from the T2-8 levels. The area was copiously irrigated with vancomycin solution. AP and lateral fluoroscopy confirmed good placement of the construct as well as zoroastrian of the spinal alignment. A DORIS drain was then placed under the muscular layer and exited through a separate incision site and secured to the skin with a 2-0 nylon tie. The muscle and fascia was then approximated using 2-0 Vicryl interrupted stitches and 3-0 Vicryl subcuticular interrupted stitches were also placed with final skin closure using stormy. Sterile dressings were then applied and he was then log roll supine position and extubated and taken recovery room. There were no intraoperative complications and all sponge and needle count was correct at the end the procedure. Estimated blood loss about 300cc. Intraoperative neurologic monitoring was also undertaken which remained stable throughout the surgery. Kory Bell MD Nov 10, 2017 16:59
[2017-11-10] MEDS ORDERED: SODIUM CHLORIDE 0.9% FLUSH 10 ML FLUSH IV FLUSH PRN (17:00)
[2017-11-10] MEDS ORDERED: PROMETHAZINE INJ 25 MG/ML VIAL IM PRN (17:00)
[2017-11-10] MEDS ORDERED: NALOXONE HCL 0.4 MG/ML AMP IV PUSH PRN (17:00)
[2017-11-10] MEDS ORDERED: diphenhydrAMINE HCL 50 MG/ML VIAL IV PUSH PRN (17:00)
[2017-11-10] MEDS ORDERED: CYCLOBENZAPRINE HCL 10 MG TAB PO PRN (17:00)
[2017-11-10] MEDS ORDERED: CALCIUM GLUCONATE INJ 1 GM in SODIUM CHLORIDE 0.9% INJ 100 ML IV PRN (17:00)
[2017-11-10] MEDS ORDERED: POTASSIUM CHLOR 20 MEQ PREMIX 100 ML IV PRN (17:00)
[2017-11-10] MEDS ORDERED: RESP: ALBUTEROL 2.5 MG/3 ML NEB (PRN) NEB (17:00)
[2017-11-10] MEDS ORDERED: MAGNESIUM SULFATE INJ 2 GM in SODIUM CHLORIDE 0.9% INJ 100 ML IV PRN (17:00)
[2017-11-10] MEDS: NS + KCL 20 MEQ INJ 1,000 ML IV SCH (18:00)
--- NOTE | 2017-11-10 18:02 | RADRPT ---
EXAM DATE/TIME: 11/10/2017 12:00 [facility] COMPARISON: No previous studies available for comparison. INDICATIONS : T2-T9 thoracic spine fusion in the operating room. MEDICAL HISTORY : Hypertension. pathologic fractures t-spine SURGICAL HISTORY : Fusion, cervical. ENCOUNTER: Subsequent ACUITY: 1 day PAIN SCORE: Non-responsive. LOCATION: Bilateral thoracic spine FINDINGS: There is thoracic fusion by history from T2-T9. The vertebral bodies are normal in alignment on the l ateral view. CONCLUSION: 1. Postsurgical changes as above. Tanner Kaur MD on November 10, 2017 at 18:01 Board Certified Radiologist. This report was verified electronically.
--- NOTE | 2017-11-10 18:12 | RADRPT ---
EXAM DATE/TIME: 11/10/2017 17:47 [facility] COMPARISON: CHEST SINGLE AP, September 29, 2016, 19:06. INDICATIONS : Post op thoracic fusion. Short of breath. MEDICAL HISTORY : Hypertension. SURGICAL HISTORY : Fusion, thoracic. ENCOUNTER: Initial ACUITY: 1 day PAIN SCORE: Non-responsive. LOCATION: Bilateral chest FINDINGS: The cardiac silhouette is normal in transverse diameter. The lungs are free of acute parenchymal opac ity. No effusions are identified. Postsurgical changes are present in the thoracic spine. A left side d subclavian vein catheter is in place without pneumothorax with its tip in the superior vena cava. CONCLUSION: 1. No acute cardiopulmonary disease. Tanner Kaur MD on November 10, 2017 at 18:11 Board Certified Radiologist. This report was verified electronically.
[2017-11-10] MEDS ORDERED: *morphine SULFATE 10 MG/ML PERIprocedure ONLY ONE ×2 (18:15→18:29)
[2017-11-10 18:35] LABS: AUTOMATED NEUTROPHIL # 18.8 TH/MM3 (1.8-7.7); BASOPHIL % 0.2 % (0.0-2.0); EOSINOPHIL % 0.1 % (0.0-4.0); HEMATOCRIT 38.7 % (35.0-46.0); HEMOGLOBIN 13.2 GM/DL (11.6-15.3); LYMPH % 3.6 % (9.0-44.0); LYMPHOCYTE # 0.8 TH/MM3 (1.0-4.8); MEAN CELL VOLUME 101.9 FL (80.0-100.0); MEAN CORPUSCULAR HEMOGLOBIN 34.8 PG (27.0-34.0); MEAN CORPUSCULAR HGB CONC 34.2 % (32.0-36.0); MEAN PLATELET VOLUME 9.4 FL (7.0-11.0); MONOCYTE # 2.2 TH/MM3 (0-0.9); NEUT % 86.1 % (16.0-70.0); PLATELET COUNT 176 TH/MM3 (150-450); RED BLOOD COUNT 3.79 MIL/MM3 (4.00-5.30); RED CELL DISTRIBUTION WIDTH 14.1 % (11.6-17.2); WHITE BLOOD COUNT 21.8 TH/MM3 (4.0-11.0)
[2017-11-10] MEDS ORDERED: DO NOT ADM ANY ANTICOAGULANT DRUGS PRN (18:45)
[2017-11-10 18:58] LABS: BICARBONATE 28.1 MEQ/L (21.0-32.0); CALCIUM 8.1 MG/DL (8.5-10.1); CREATININE 0.72 MG/DL (0.50-1.00); MAGNESIUM 2.1 MG/DL (1.5-2.5)
[2017-11-10 19:12] LABS: BANDS 2 % (0-6); LYMPHOCYTES 5 % (9-44); METAMYELOCYTES 1 % (0-1); MONOCYTES 6 % (0-8); MYELOCYTES 1 % (0-0); NEUTROPHIL # MANUAL DIFF 19.4 TH/MM3 (1.8-7.7); POLYS (SEG NEUTROPHILS) 85 % (16-70)
[2017-11-10] MEDS: PCA - TOTAL MG MORPHINE DELIVERED PER SHIFT SCH ×2 (20:55→22:38)
[2017-11-11] VITALS (15 sets, daily range): BP systolic 132–159; BP diastolic 53–71; PULSE 56–70; RESP 12–15; TEMP 97.9–98.3; O2SAT 95–100
[2017-11-11] MEDS: MORPHINE SULFATE 30 MG CONTROLLED RELEASE TAB PO SCH ×3 (04:00→20:00)
[2017-11-11 04:23] LABS: AUTOMATED NEUTROPHIL # 18.3 TH/MM3 (1.8-7.7); BASOPHIL % 0.1 % (0.0-2.0); HEMATOCRIT 36.2 % (35.0-46.0); HEMOGLOBIN 12.3 GM/DL (11.6-15.3); LYMPH % 2.9 % (9.0-44.0); LYMPHOCYTE # 0.6 TH/MM3 (1.0-4.8); MEAN CORPUSCULAR HEMOGLOBIN 34.6 PG (27.0-34.0); MEAN CORPUSCULAR HGB CONC 33.9 % (32.0-36.0); MEAN PLATELET VOLUME 9.4 FL (7.0-11.0); MONO % 8.5 % (0.0-8.0); MONOCYTE # 1.8 TH/MM3 (0-0.9); NEUT % 88.5 % (16.0-70.0); PLATELET COUNT 169 TH/MM3 (150-450); RED BLOOD COUNT 3.55 MIL/MM3 (4.00-5.30); RED CELL DISTRIBUTION WIDTH 13.5 % (11.6-17.2); WHITE BLOOD COUNT 20.7 TH/MM3 (4.0-11.0)
[2017-11-11 04:36] LABS: BICARBONATE 29.5 MEQ/L (21.0-32.0); CALCIUM 7.8 MG/DL (8.5-10.1); CREATININE 0.59 MG/DL (0.50-1.00); MAGNESIUM 2.2 MG/DL (1.5-2.5)
[2017-11-11] MEDS: NS + KCL 20 MEQ INJ 1,000 ML IV SCH ×2 (04:48→12:59)
[2017-11-11] MEDS: DEXAMETHASONE SOD PHOS 4 MG/ML VIAL IV PUSH SCH ×3 (05:20→21:33)
[2017-11-11] MEDS: PCA - TOTAL MG MORPHINE DELIVERED PER SHIFT SCH ×3 (06:03→22:00)
[2017-11-11] MEDS: METOPROLOL TARTRATE 25 MG TAB PO SCH ×2 (08:57→21:00)
[2017-11-11] MEDS: PANTOPRAZOLE SOD 40 MG DELAYED RELEASE TAB PO SCH (08:57)
[2017-11-11] MEDS: DOCUSATE SODIUM 100 MG CAP PO SCH ×2 (08:57→21:33)
[2017-11-11] MEDS: amLODIPine BESYLATE 5 MG TAB PO SCH (08:57)
[2017-11-11] MEDS: SODIUM CHLORIDE 0.65% NASAL DRP/SPRY 30 ML BTL EACH NARE SCH ×2 (08:58→20:18)
[2017-11-11] MEDS: SODIUM CHLORIDE 0.9% FLUSH 10 ML FLUSH IV FLUSH SCH ×4 (08:58→20:18)
[2017-11-11] MEDS: ENALAPRIL MALEATE 2.5 MG TAB PO SCH (09:00)
--- NOTE | 2017-11-11 10:31 | HHI.NSPN ---
(Jori Flores) History Chief Complaint: Thoracic spine pain controlled with pain medication. (Jori Flores) Interval History This is a 62-year-old female patient without previous significant medical history. She presents at the request of her primary care physician because of continued pain in her back. The patient apparently was seen by her primary care physician who ordered an MRI of the cervical and thoracic spine and because of abnormal findings, she was sent to the emergency room here at [place] for further evaluation. The patient reports having pain for approximately one month in the mid-back. She denies any neck pain and denies any lower back pain. She denies any radiation of pain to the arms or any radiation of pain into the legs. She denies any numbness. She reports that she is ambulatory without any problems. The patient reports she does not regularly see a physician, and denies any other medical problems. 11/02/17: Pt awakens to voice complains of mid back thoracic spine pain with radiation into bilateral ribs under her breast bilaterally. She denies any numbness or paresthesias in her chest or LEs. She states she has a chronic history of stress and urge incontinence but no marysol incontinence. No weakness in LEs. She denies any neck pain. 11/03/17: Patient is awake and alert. She complains of mid thoracic back pain radiating under her breasts bilaterally. She also complains of left triceps tightness/discomfort. Patient states that she has not discussed with the rest of her family her options. 11/04/17: Pt states when laying down her neck pain is controlled. She does have some discomfort/tightness in the right triceps area. No paresthesias in UEs or LEs. She has good strength on testing in LEs. Mild 4/5 left deltoid, triceps and biceps strength. Pt states she is ready to have surgery tomorrow. 11/06/17: Pt awake and alert. She states the pain and strength in the LUE is improved. 11/07/17: Pt awake and alert. Complains of pain in thoracic spine with radiation under bilateral breasts. She states her cervical spine feels good without radiculopathy in UEs. 11/08/17: Pt awakens to voice. Denies any neck pain. Left arm tightness and discomfort resolved. 11/09/17: Pt awake and alert. Complains of generally being uncomfortable from her back pain. She states the left upper extremity tightness is better. We plan on stabilizing her thoracic spine tomorrow. 11/11/17: Pt awake and alert. Complains of thoracic incisional pain. Pain not radiating in ribs currently. Denies paresthesias in LEs. (Jori Flores) Review of Systems General: Negative for: fever, chills, insomnia Respiratory: Negative for: shortness of breath, cough, sputum Cardiovascular: Negative for: chest pain Gastrointestinal: Negative for: nausea, vomitting, diarrhea, constipation ( Jori Flores) Exam Results Vital Signs Date Time Temp Pulse Resp B/P (MAP) Pulse Ox O2 Delivery O2 Flow Rate FiO2 11/11/17 10:00 59 11/11/17 08:56 97 Nasal Cannula 2.00 11/11/17 08:00 98.0 12 156/71 (99) 11/10/17 18:07 40 Intake and Output 11/11/17 11/11/17 11/12/17 08:00 16:00 00:00 Intake Total 1170 ml Output Total 775 ml Balance 395 ml (Jori Flores) Physical Examination General: Pt awake and alert laying in bed, appears comfortable. Eyes: Pupils equal. Sclera anicteric. Resp: CTA bilaterally Heart: NSR no murmurs Abd: soft positive bs Skin: No cyanosis or erythema. Cervical Incision clean and dry. Thoracic DORIS drain in place. Muscle: Left deltoid, triceps, and biceps weakness improving 4+/5 otherwise 5/ 5 strength in UEs and LEs 5/5. Desha cervical collar in place. Neuro: Pt awake and alert. Follows commands well. Speech clear and appropriate. Sensation intact in UEs and LEs. (Jori Flores) Lab, Micro, Other Results Last Impressions Thoracic Spine X-Ray 11/10/17 0000 Signed Impressions: Service Date/Time: Friday, November 10, 2017 12:00 - CONCLUSION: 1. Postsurgical changes as above. Tanner Kaur MD Chest X-Ray 11/10/17 0000 Signed Impressions: Service Date/Time: Friday, November 10, 2017 17:47 - CONCLUSION: 1. No acute cardiopulmonary disease. Tanner Kaur MD Cervical Spine X-Ray 11/05/17 0000 Signed Impressions: Service Date/Time: October 08:07 - CONCLUSION: Intraoperative images. Carter Carver MD Thoracic Spine CT 11/02/17 0000 Signed Impressions: Service Date/Time: Thursday, November 02, 2017 13:48 - CONCLUSION: 1. 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 Although suboptimally evaluated with CT, there is large amount of epidural tumor extension at these levels with significant spinal canal compromise. 2. Additional foci of metastatic disease at T7, T8 and likely T11. Please see above discussion. 3. MRI examination may be performed to further evaluate degree of epidural extension as clinically indicated. Kendall Butler MD Cervical Spine CT 11/02/17 0000 Signed Impressions: Service Date/Time: Thursday, November 02, 2017 13:38 - CONCLUSION: 1. 3 lytic lesions consistent with either metastatic disease or multiple myeloma. There is extension into the central canal involving the C3 lesion as detailed above. Carter Almodovar Jr., MD Breast Ultrasound 10/30/17 2213 Signed Impressions: Service Date/Time: Monday, October 30, 2017 22:25 - CONCLUSION: 1. Mass in left breast measuring up to 3 cm in diameter. Ultrasound core biopsy recommended. Jovanny Sal MD Head CT 10/30/17 1304 Signed Impressions: Service Date/Time: Monday, October 30, 2017 14:20 - CONCLUSION: Intracranial contents are unremarkable. Scattered nonspecific lucencies in the calvarium. Ulises Mcoky MD FACR Chest CT 10/30/17 0000 Signed Impressions: Service Date/Time: Monday, October 30, 2017 14:26 - CONCLUSION: The examination demonstrates a destructive lesion involving what are probably the T5 and T6 vertebral bodies. There does appear to be significant canal compromise with epidural spread of disease. This is highly suspicious for malignancy. Dedicated MRI imaging is warranted for further assessment. This lesion would be amenable to CT-guided biopsy for sampling. Papa Mckoy MD Abdomen/Pelvis CT 10/30/17 0000 Signed Impressions: Service Date/Time: Monday, October 30, 2017 14:26 - CONCLUSION: 1. Punctate nonobstructing stones in the kidneys bilaterally. 2. CT examination is otherwise within normal limits for age. Papa Mckoy MD Laboratory Tests Test 11/10/17 18:15 11/10/17 21:20 11/11/17 04:00 White Blood Count 21.8 TH/MM3 20.7 TH/MM3 Red Blood Count 3.79 MIL/MM3 3.55 MIL/MM3 Hemoglobin 13.2 GM/DL 12.3 GM/DL Hematocrit 38.7 % 36.2 % Mean Corpuscular Volume 101.9 FL 102.0 FL Mean Corpuscular Hemoglobin 34.8 PG 34.6 PG Mean Corpuscular Hemoglobin Concent 34.2 % 33.9 % Red Cell Distribution Width 14.1 % 13.5 % Platelet Count 176 TH/MM3 169 TH/MM3 Mean Platelet Volume 9.4 FL 9.4 FL Neutrophils (%) (Auto) 86.1 % 88.5 % Lymphocytes (%) (Auto) 3.6 % 2.9 % Monocytes (%) (Auto) 10.0 % 8.5 % Eosinophils (%) (Auto) 0.1 % 0.0 % Basophils (%) (Auto) 0.2 % 0.1 % Neutrophils # (Auto) 18.8 TH/MM3 18.3 TH/MM3 Lymphocytes # (Auto) 0.8 TH/MM3 0.6 TH/MM3 Monocytes # (Auto) 2.2 TH/MM3 1.8 TH/MM3 Eosinophils # (Auto) 0.0 TH/MM3 0.0 TH/MM3 Basophils # (Auto) 0.0 TH/MM3 0.0 TH/MM3 CBC Comment AUTO DIFF DIFF FINAL Differential Total Cells Counted 100 Neutrophils % (Manual) 85 % Band Neutrophils % 2 % Lymphocytes % 5 % Monocytes % 6 % Neutrophils # (Manual) 19.4 TH/MM3 Metamyelocytes 1 % Myelocytes 1 % Differential Comment AUTO DIFF CONFIRMED Platelet Estimate NORMAL Platelet Morphology Comment ENLARGED Blood Urea Nitrogen 29 MG/DL 24 MG/DL Creatinine 0.72 MG/DL 0.59 MG/DL Random Glucose 114 MG/DL 107 MG/DL Calcium Level 8.1 MG/DL 7.8 MG/DL Magnesium Level 2.1 MG/DL 2.2 MG/DL Sodium Level 135 MEQ/L 138 MEQ/L Potassium Level 4.3 MEQ/L 4.7 MEQ/L Chloride Level 101 MEQ/L 103 MEQ/L Carbon Dioxide Level 28.1 MEQ/L 29.5 MEQ/L Anion Gap 6 MEQ/L 6 MEQ/L Estimat Glomerular Filtration Rate 82 ML/MIN 103 ML/MIN Nasal Screen MRSA (PCR) MRSA NOT DETECTED (Jori Flores) Medical Decision Making Impression and Plan A: 62 y/o FM with severe C4-5 and C5-6 spinal stenosis with cord compression and spinal canals reduced down to less than 4 mm at both these levels with partial ossification of posterior longitudinal ligament. There are also lytic lesions involving C3 and C5 vertebral body. s/p C4/C5 and C5/C6 anterior cervical fusion on 11/05/17. She has very destructive T5 as well as T4 and T6 vertebral body lesions with severe kyphosis vertebral body height collapse along with the spinal canal involvement from the pathologic fracture and tumor. There is also partial pedicle involvement at the T7 and T8 pedicle and vertebral body. s/p Thoracic decompression and stabilization on 11/10/17. P: Continue with pain control OOB with TLSO brace on prior to sitting, standing, walking Following pathology. (Jori Flores) Attending Statement The exam, history, and the medical decision-making described in the above note were completed with the assistance of the mid-level provider. I reviewed and agree with the findings presented. I attest that I had a [id number] encounter with the patient on the same day, and personally performed and documented my assessment and findings in the medical record. (Kory Bell MD) Jori Flores Nov 11, 2017 10:31 Kory Bell MD Nov 11, 2017 18:18
--- NOTE | 2017-11-11 12:04 | HHI.PR ---
Subjective Remarks Follow-up history of breast cancer/rule out spinal metastases 11/10/17-patient seen and examined, complains of neck pain, denies any radiation to bilateral upper extremities. Denies any lower extremity pain. Currently nothing by mouth pending laminectomy. Afebrile 11/11/17-patient seen and examined, currently complains of back and neck pain. Afebrile. Case discussed with neurosurgery Objective Vitals Vital Signs Date Time Temp Pulse Resp B/P (MAP) Pulse Ox O2 Delivery O2 Flow Rate FiO2 11/11/17 12:00 98.0 59 14 132/60 (84) 95 11/11/17 12:00 59 11/11/17 10:00 59 11/11/17 08:56 97 Nasal Cannula 2.00 11/11/17 08:00 70 11/11/17 08:00 98 Nasal Cannula 3.00 11/11/17 08:00 98.0 70 12 156/71 (99) 98 11/11/17 06:03 15 11/11/17 06:00 67 11/11/17 04:00 60 11/11/17 04:00 98.1 60 12 156/57 (90) 100 11/11/17 02:00 57 11/11/17 00:00 58 11/11/17 00:00 97.9 58 14 144/53 (83) 100 11/10/17 22:38 12 11/10/17 22:00 59 11/10/17 21:30 97.7 58 12 139/54 (82) 100 Automatic Cuff 11/10/17 21:05 100 Nasal Cannula 3.00 11/10/17 20:55 14 11/10/17 20:49 100 Nasal Cannula 3.00 11/10/17 20:49 Nasal Cannula 11/10/17 20:45 66 13 148/55 (86) 96 Nasal Cannula 3 11/10/17 20:30 97.8 63 17 100 Nasal Cannula 3 154/56 (88) 11/10/17 20:15 55 16 100 Nasal Cannula 3 135/51 (79) 11/10/17 20:00 55 12 115/56 (75) 100 Nasal Cannula 3 141/52 (81) 11/10/17 19:45 54 12 100 Nasal Cannula 3 140/52 (81) 11/10/17 19:30 56 12 100 Nasal Cannula 3 143/55 (84) 11/10/17 19:15 54 12 100 Nasal Cannula 4 143/54 (83) 11/10/17 19:00 97.6 54 12 126/58 (80) 100 Nasal Cannula 4 149/56 (87) 11/10/17 18:45 56 16 144/65 (91) 100 Nasal Cannula 4 11/10/17 18:30 58 16 145/65 (91) 100 Nasal Cannula 4 11/10/17 18:15 64 16 141/61 (87) 100 Nasal Cannula 4 11/10/17 18:07 100 40 11/10/17 18:00 100 40 11/10/17 18:00 72 16 142/68 (92) 100 Nasal Cannula 4 11/10/17 17:45 56 16 109/55 (73) 100 Simple Mask 6 11/10/17 17:36 97.7 52 94/52 (66) 100 T-Piece 8 I/O 11/10/17 11/10/17 11/10/17 11/11/17 11/11/17 11/11/17 07:00 15:00 23:00 07:00 15:00 23:00 Intake Total 0 ml 2400 ml 1270 ml Output Total 650 ml 1505 ml 775 ml Balance -650 ml 895 ml 495 ml Intake Oral 0 ml IV Total 2400 ml 1270 ml Output Urine Total 650 ml 925 ml 650 ml Drainage Total 280 ml 125 ml Estimated Blood Loss 300 ml # Bowel Movements 0 0 Result Diagram: 11/11/17 0400 11/11/17 0400 Imaging Last Impressions Thoracic Spine X-Ray 11/10/17 0000 Signed Impressions: Service Date/Time: Friday, November 10, 2017 12:00 - CONCLUSION: 1. Postsurgical changes as above. Tanner Kaur MD Chest X-Ray 11/10/17 0000 Signed Impressions: Service Date/Time: Friday, November 10, 2017 17:47 - CONCLUSION: 1. No acute cardiopulmonary disease. Tanner Kaur MD Cervical Spine X-Ray 11/05/17 0000 Signed Impressions: Service Date/Time: October 08:07 - CONCLUSION: Intraoperative images. Carter Carver MD Thoracic Spine CT 11/02/17 0000 Signed Impressions: Service Date/Time: Thursday, November 02, 2017 13:48 - CONCLUSION: 1. 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 Although suboptimally evaluated with CT, there is large amount of epidural tumor extension at these levels with significant spinal canal compromise. 2. Additional foci of metastatic disease at T7, T8 and likely T11. Please see above discussion. 3. MRI examination may be performed to further evaluate degree of epidural extension as clinically indicated. Kendall Butler MD Cervical Spine CT 11/02/17 0000 Signed Impressions: Service Date/Time: Thursday, November 02, 2017 13:38 - CONCLUSION: 1. 3 lytic lesions consistent with either metastatic disease or multiple myeloma. There is extension into the central canal involving the C3 lesion as detailed above. Carter Almodovar Jr., MD Breast Ultrasound 10/30/17 2213 Signed Impressions: Service Date/Time: Monday, October 30, 2017 22:25 - CONCLUSION: 1. Mass in left breast measuring up to 3 cm in diameter. Ultrasound core biopsy recommended. Jovanny Sal MD Head CT 10/30/17 1304 Signed Impressions: Service Date/Time: Monday, October 30, 2017 14:20 - CONCLUSION: Intracranial contents are unremarkable. Scattered nonspecific lucencies in the calvarium. Ulises Mckoy MD FACR Chest CT 10/30/17 0000 Signed Impressions: Service Date/Time: Monday, October 30, 2017 14:26 - CONCLUSION: The examination demonstrates a destructive lesion involving what are probably the T5 and T6 vertebral bodies. There does appear to be significant canal compromise with epidural spread of disease. This is highly suspicious for malignancy. Dedicated MRI imaging is warranted for further assessment. This lesion would be amenable to CT-guided biopsy for sampling. Papa Mckoy MD Abdomen/Pelvis CT 10/30/17 0000 Signed Impressions: Service Date/Time: Monday, October 30, 2017 14:26 - CONCLUSION: 1. Punctate nonobstructing stones in the kidneys bilaterally. 2. CT examination is otherwise within normal limits for age. Papa Mckoy MD Objective Remarks GENERAL: NAD with [place] neck collar in place SKIN: Warm and dry. HEAD: Normocephalic. EYES: No scleral icterus. No injection or drainage. NECK: TTP, trachea midline. No JVD or lymphadenopathy.[place] neck collar in place CARDIOVASCULAR: Regular rate and rhythm without murmurs, gallops, or rubs. RESPIRATORY: Breath sounds equal bilaterally. No accessory muscle use. GASTROINTESTINAL: Abdomen soft, non-tender, nondistended. MUSCULOSKELETAL: No cyanosis, or edema. BACK: Nontender without obvious deformity. No CVA tenderness. Procedures 11/05 Anterior cervical partial C4 corpectomy, complete C5 corpectomy, and partial C6 corpectomy; anterior C4-6 interbody allograft fusion; anterior C4-6 cervical plate placement; microsurgical technique Pathologic thoracic spine T4, T5 and T6 vertebral body fractures with epidural neoplasm and associated severe vertebral body height collapse and kyphosis 11/10 Date of Insertion: Nov 05, 2017 A/P Problem List: (1) Pathologic thoracic fracture ICD Code: M84.48XA - Pathological fracture, other site, initial encounter for fracture Status: Acute (2) Metastatic bone cancer ICD Code: C41.9 - Malignant neoplasm of bone and articular cartilage, unspecified Status: Acute (3) Cervical spinal stenosis ICD Code: M48.02 - Spinal stenosis, cervical region Assessment and Plan 62-year-old female with Cervical Spinal stenosis.S/P Anterior cervical partial C4 corpectomy, complete C5 corpectomy, and partial C6 corpectomy; anterior C4-6 interbody allograft fusion; anterior C4-6 cervical plate placement; microsurgical technique-11/05 - Probable metastatic bone lesions - T5 , T6 pathologic fractures - Metastatic epidural spread - Left Breast mass - Neurosurgery and Oncology following. - Continue schedule MANAGER DATA, Percocet when necessary - Continue on dexamethasone 4 mg IV every 8 hours. - s/p T4-T6 laminectomy with neoplasm resection and T2-T9 fusion 11/10/17 - Hypertension- good readings this am continue on amlodipine 10 mg daily. Lopressor 12.5 mg po bid, Enalapril 2.5 mg po daily - Hypokalemia-resolved - smoker- counselled. Duo neb prn Incentive spirometry Lovenox - held Transfer to [facility] Problem Qualifiers (1) Pathologic thoracic fracture: Qualified Codes: M84.48XA - Pathological fracture, other site, initial encounter for fracture Jori James MD Nov 11, 2017 12:04
--- NOTE | 2017-11-11 12:16 | PD.ONC.PN ---
Subjective Subjective Remarks Afebrile overnight. Patient working with physical therapy to get out of bed to chair for the first time since her surgery. states pain is controlled with pain pump. Objective Data Date Time Temp Pulse Resp B/P (MAP) Pulse Ox O2 Delivery O2 Flow Rate FiO2 11/11/17 12:00 98.0 59 14 132/60 (84) 95 11/11/17 12:00 59 11/11/17 10:00 59 11/11/17 08:56 97 Nasal Cannula 2.00 11/11/17 08:00 70 11/11/17 08:00 98 Nasal Cannula 3.00 11/11/17 08:00 98.0 70 12 156/71 (99) 98 11/11/17 06:03 15 11/11/17 06:00 67 11/11/17 04:00 60 11/11/17 04:00 98.1 60 12 156/57 (90) 100 11/11/17 02:00 57 11/11/17 00:00 58 11/11/17 00:00 97.9 58 14 144/53 (83) 100 11/10/17 22:38 12 11/10/17 22:00 59 11/10/17 21:30 97.7 58 12 139/54 (82) 100 Automatic Cuff 11/10/17 21:05 100 Nasal Cannula 3.00 11/10/17 20:55 14 11/10/17 20:49 100 Nasal Cannula 3.00 11/10/17 20:49 Nasal Cannula 11/10/17 20:45 66 13 148/55 (86) 96 Nasal Cannula 3 11/10/17 20:30 97.8 63 17 100 Nasal Cannula 3 154/56 (88) 11/10/17 20:15 55 16 100 Nasal Cannula 3 135/51 (79) 11/10/17 20:00 55 12 115/56 (75) 100 Nasal Cannula 3 141/52 (81) 11/10/17 19:45 54 12 100 Nasal Cannula 3 140/52 (81) 11/10/17 19:30 56 12 100 Nasal Cannula 3 143/55 (84) 11/10/17 19:15 54 12 100 Nasal Cannula 4 143/54 (83) 11/10/17 19:00 97.6 54 12 126/58 (80) 100 Nasal Cannula 4 149/56 (87) 11/10/17 18:45 56 16 144/65 (91) 100 Nasal Cannula 4 11/10/17 18:30 58 16 145/65 (91) 100 Nasal Cannula 4 11/10/17 18:15 64 16 141/61 (87) 100 Nasal Cannula 4 11/10/17 18:07 100 40 11/10/17 18:00 100 40 11/10/17 18:00 72 16 142/68 (92) 100 Nasal Cannula 4 11/10/17 17:45 56 16 109/55 (73) 100 Simple Mask 6 11/10/17 17:36 97.7 52 94/52 (66) 100 T-Piece 8 11/11/17 11/11/17 11/11/17 07:00 15:00 23:00 Intake Total 1270 ml Output Total 775 ml Balance 495 ml Result Diagram: 11/11/17 0400 11/11/17 0400 Laboratory Results Laboratory Tests Test 11/10/17 18:15 11/10/17 21:20 11/11/17 04:00 White Blood Count 21.8 TH/MM3 20.7 TH/MM3 Red Blood Count 3.79 MIL/MM3 3.55 MIL/MM3 Hemoglobin 13.2 GM/DL 12.3 GM/DL Hematocrit 38.7 % 36.2 % Mean Corpuscular Volume 101.9 FL 102.0 FL Mean Corpuscular Hemoglobin 34.8 PG 34.6 PG Mean Corpuscular Hemoglobin Concent 34.2 % 33.9 % Red Cell Distribution Width 14.1 % 13.5 % Platelet Count 176 TH/MM3 169 TH/MM3 Mean Platelet Volume 9.4 FL 9.4 FL Neutrophils (%) (Auto) 86.1 % 88.5 % Lymphocytes (%) (Auto) 3.6 % 2.9 % Monocytes (%) (Auto) 10.0 % 8.5 % Eosinophils (%) (Auto) 0.1 % 0.0 % Basophils (%) (Auto) 0.2 % 0.1 % Neutrophils # (Auto) 18.8 TH/MM3 18.3 TH/MM3 Lymphocytes # (Auto) 0.8 TH/MM3 0.6 TH/MM3 Monocytes # (Auto) 2.2 TH/MM3 1.8 TH/MM3 Eosinophils # (Auto) 0.0 TH/MM3 0.0 TH/MM3 Basophils # (Auto) 0.0 TH/MM3 0.0 TH/MM3 CBC Comment AUTO DIFF DIFF FINAL Differential Total Cells Counted 100 Neutrophils % (Manual) 85 % Band Neutrophils % 2 % Lymphocytes % 5 % Monocytes % 6 % Neutrophils # (Manual) 19.4 TH/MM3 Metamyelocytes 1 % Myelocytes 1 % Differential Comment AUTO DIFF CONFIRMED Platelet Estimate NORMAL Platelet Morphology Comment ENLARGED Blood Urea Nitrogen 29 MG/DL 24 MG/DL Creatinine 0.72 MG/DL 0.59 MG/DL Random Glucose 114 MG/DL 107 MG/DL Calcium Level 8.1 MG/DL 7.8 MG/DL Magnesium Level 2.1 MG/DL 2.2 MG/DL Sodium Level 135 MEQ/L 138 MEQ/L Potassium Level 4.3 MEQ/L 4.7 MEQ/L Chloride Level 101 MEQ/L 103 MEQ/L Carbon Dioxide Level 28.1 MEQ/L 29.5 MEQ/L Anion Gap 6 MEQ/L 6 MEQ/L Estimat Glomerular Filtration Rate 82 ML/MIN 103 ML/MIN Nasal Screen MRSA (PCR) MRSA NOT DETECTED Administered Medications Medications (Trade) Dose Ordered Sig/Sandra Route PRN Reason Start Time Stop Time Status Last Admin Dose Admin Sodium Chloride (NS Flush) 2 ml UNSCH PRN IV FLUSH FLUSH AFTER USING IV ACCESS 10/30/17 15:45 11/04/17 14:43 Sodium Chloride (NS Flush) 2 ml BID IV FLUSH 10/30/17 21:00 11/11/17 08:58 Ondansetron HCl (Zofran Inj) 4 mg Q6H PRN IVP NAUSEA OR VOMITING 10/30/17 15:45 11/10/17 00:50 Magnesium Hydroxide (Milk Of Magnesia Liq) 30 ml Q12H PRN PO Mild constipation 10/30/17 15:45 11/08/17 08:55 Sennosides (Senokot) 17.2 mg Q12H PRN PO Moderate constipation 10/30/17 15:45 11/03/17 00:15 Lactulose (Lactulose Liq) 30 ml DAILY PRN PO SEVERE CONSITIPATION 10/30/17 15:45 11/08/17 03:59 Enoxaparin Sodium (Lovenox Inj) 40 mg Q24H SQ 10/30/17 19:00 Future Hold 11/08/17 18:34 Clonidine (Catapres) 0.1 mg Q6H PRN PO SBP> OR = 180, DBP> OR = 100 10/31/17 21:45 11/07/17 13:32 Pantoprazole Sodium (Protonix) 40 mg DAILY PO 11/01/17 16:00 11/11/17 08:57 Amlodipine Besylate (Norvasc) 10 mg DAILY PO 11/01/17 16:00 11/11/17 08:57 Morphine Sulfate (Oramorph Sr) 30 mg Q8H PO 11/03/17 20:00 11/10/17 04:55 Sodium Chloride (Baby [place] Saline 0.65% Delio Drp/ [place]) 2 drop BID EACH NARE 11/03/17 21:00 11/11/17 08:58 Dexamethasone Sodium Phosphate (Decadron Inj) 4 mg Q8HR IV PUSH 11/04/17 22:00 11/11/17 05:20 Metoprolol Tartrate (Lopressor) 12.5 mg Q12HR PO 11/07/17 09:00 11/11/17 08:57 Docusate Sodium (Colace) 100 mg BID PO 11/07/17 09:00 11/11/17 08:57 Enalapril Maleate (Vasotec) 2.5 mg DAILY PO 11/08/17 09:00 11/10/17 09:16 Lactated Ringer's 1,000 ml @ 30 mls/hr Q24H PRN IV SEE LABEL COMMENTS 11/09/17 22:15 11/12/17 22:14 11/10/17 09:30 Potassium Chloride/Sodium Chloride 1,000 ml @ 100 mls/hr Q10H IV 11/10/17 16:59 11/11/17 04:48 Sodium Chloride (NS Flush) 2 ml BID IV FLUSH 11/10/17 21:00 11/11/17 08:58 Cefazolin Sodium 1000 mg/Sodium Chloride 100 ml @ 200 mls/hr Q8H IV 11/10/17 22:00 11/11/17 14:29 11/11/17 05:20 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 SKIN: Warm and dry. HEAD: Normocephalic. EYES: No injection or drainage. NECK: Supple, trachea midline. CARDIOVASCULAR: Regular rate and rhythm RESPIRATORY: Breath sounds equal bilaterally. No accessory muscle use. GASTROINTESTINAL: Abdomen soft, non-tender, nondistended. EXTREMITIES: No cyanosis NEUROLOGICAL: awake and alert, normal speech. moving all extremities. Assessment/Plan Problem List: (1) Breast mass ICD Codes: N63.0 - Unspecified lump in unspecified breast Status: Chronic Plan: 11/11/17: awaiting pathology. discussed with patient pending path and concern for breast cancer with mets to bone. discussed continuing to heal from surgery while awaiting path result. 11/09/17: Discussed with Jori Flores, neurosurgery. They were unable to get biopsy of cervical tissue. Plan to get biopsy of thoracic tissue with 2nd surgery tomorrow. Assessment 62y/o female with breast mass and suspected spinal metastatic lesions. h/o chronic back pain. ++chronic tobacco use Plan 1. await pathology 2. continue pain management. 3. continue supportive care Mayte Conrad Nov 11, 2017 12:16
[2017-11-11] MEDS: MORPHINE SULFATE 30 MG/30 ML PCA IV SCH (14:17)
[2017-11-12] VITALS (11 sets, daily range): BP systolic 131–173; BP diastolic 62–67; PULSE 54–74; RESP 10–20; TEMP 96.5–98.3; O2SAT 93–98
[2017-11-12] MEDS: NS + KCL 20 MEQ INJ 1,000 ML IV SCH ×3 (01:39→18:59)
[2017-11-12] MEDS: DEXAMETHASONE SOD PHOS 4 MG/ML VIAL IV PUSH SCH ×2 (05:14→12:14)
[2017-11-12] MEDS: SODIUM CHLORIDE 0.9% FLUSH 10 ML FLUSH IV FLUSH PRN (05:14)
[2017-11-12] MEDS: MORPHINE SULFATE 30 MG CONTROLLED RELEASE TAB PO SCH ×3 (05:15→20:39)
[2017-11-12] MEDS: PCA - TOTAL MG MORPHINE DELIVERED PER SHIFT SCH ×3 (05:18→22:00)
[2017-11-12] MEDS: METOPROLOL TARTRATE 25 MG TAB PO SCH ×2 (09:00→20:38)
[2017-11-12] MEDS: PANTOPRAZOLE SOD 40 MG DELAYED RELEASE TAB PO SCH (09:00)
[2017-11-12] MEDS: amLODIPine BESYLATE 5 MG TAB PO SCH (09:00)
[2017-11-12] MEDS: SODIUM CHLORIDE 0.65% NASAL DRP/SPRY 30 ML BTL EACH NARE SCH ×2 (09:00→20:40)
[2017-11-12] MEDS: DOCUSATE SODIUM 100 MG CAP PO SCH ×2 (09:00→20:38)
[2017-11-12] MEDS: ENALAPRIL MALEATE 2.5 MG TAB PO SCH (09:00)
[2017-11-12] MEDS: SODIUM CHLORIDE 0.9% FLUSH 10 ML FLUSH IV FLUSH SCH ×4 (09:00→20:39)
--- NOTE | 2017-11-12 10:08 | HHI.NSPN ---
(Jori Flores) History Chief Complaint: Thoracic spine pain controlled with pain medication. (Jori Flores) Interval History This is a 62-year-old female patient without previous significant medical history. She presents at the request of her primary care physician because of continued pain in her back. The patient apparently was seen by her primary care physician who ordered an MRI of the cervical and thoracic spine and because of abnormal findings, she was sent to the emergency room here at [facility] for further evaluation. The patient reports having pain for approximately one month in the mid-back. She denies any neck pain and denies any lower back pain. She denies any radiation of pain to the arms or any radiation of pain into the legs. She denies any numbness. She reports that she is ambulatory without any problems. The patient reports she does not regularly see a physician, and denies any other medical problems. 11/02/17: Pt awakens to voice complains of mid back thoracic spine pain with radiation into bilateral ribs under her breast bilaterally. She denies any numbness or paresthesias in her chest or LEs. She states she has a chronic history of stress and urge incontinence but no marysol incontinence. No weakness in LEs. She denies any neck pain. 11/03/17: Patient is awake and alert. She complains of mid thoracic back pain radiating under her breasts bilaterally. She also complains of left triceps tightness/discomfort. Patient states that she has not discussed with the rest of her family her options. 11/04/17: Pt states when laying down her neck pain is controlled. She does have some discomfort/tightness in the right triceps area. No paresthesias in UEs or LEs. She has good strength on testing in LEs. Mild 4/5 left deltoid, triceps and biceps strength. Pt states she is ready to have surgery tomorrow. 11/06/17: Pt awake and alert. She states the pain and strength in the LUE is improved. 11/07/17: Pt awake and alert. Complains of pain in thoracic spine with radiation under bilateral breasts. She states her cervical spine feels good without radiculopathy in UEs. 11/08/17: Pt awakens to voice. Denies any neck pain. Left arm tightness and discomfort resolved. 11/09/17: Pt awake and alert. Complains of generally being uncomfortable from her back pain. She states the left upper extremity tightness is better. We plan on stabilizing her thoracic spine tomorrow. 11/11/17: Pt awake and alert. Complains of thoracic incisional pain. Pain not radiating in ribs currently. Denies paresthesias in LEs. 11/12/17: Pt awakens to voice. Complains of incisional back pain. Some discomfort in ribs but improved from preop. DORIS drain in place. (Jori Flores) Review of Systems General: Negative for: fever, chills, insomnia Respiratory: Negative for: shortness of breath, cough, sputum Cardiovascular: Positive for: chest pain (Some lateral rib discomfort bilaterally.), Negative for: palpitations, orthopnea Gastrointestinal: Negative for: nausea, vomitting, diarrhea, constipation ( Jori Flores) Exam Results Vital Signs Date Time Temp Pulse Resp B/P (MAP) Pulse Ox O2 Delivery O2 Flow Rate FiO2 11/12/17 08:00 58 11/12/17 08:00 98.3 16 131/62 (85) 96 11/12/17 07:00 Room Air 11/11/17 20:45 21 11/11/17 08:56 2.00 Intake and Output 11/12/17 11/12/17 11/13/17 08:00 16:00 00:00 Intake Total 240 ml Output Total 1130 ml Balance -890 ml (Jori Flores) Physical Examination General: Pt awake and alert laying in bed, appears comfortable. Eyes: Pupils equal. Sclera anicteric. Resp: CTA bilaterally Heart: NSR no murmurs Abd: soft positive bs Skin: No cyanosis or erythema. Cervical Incision clean and dry. Thoracic DORIS drain in place. Muscle: Left deltoid, triceps, and biceps weakness improving 4+/5 otherwise 5/ 5 strength in UEs and LEs 5/5. [place] cervical collar in place. Neuro: Pt awake and alert. Follows commands well. Speech clear and appropriate. Sensation intact in UEs and LEs. (Jori Flores) Lab, Micro, Other Results Last Impressions Thoracic Spine X-Ray 11/10/17 0000 Signed Impressions: Service Date/Time: Friday, November 10, 2017 12:00 - CONCLUSION: 1. Postsurgical changes as above. Tanner Kaur MD Chest X-Ray 11/10/17 0000 Signed Impressions: Service Date/Time: Friday, November 10, 2017 17:47 - CONCLUSION: 1. No acute cardiopulmonary disease. Tanner Kaur MD Cervical Spine X-Ray 11/05/17 0000 Signed Impressions: Service Date/Time: October 08:07 - CONCLUSION: Intraoperative images. Carter Carver MD Thoracic Spine CT 11/02/17 0000 Signed Impressions: Service Date/Time: Thursday, November 02, 2017 13:48 - CONCLUSION: 1. 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 Although suboptimally evaluated with CT, there is large amount of epidural tumor extension at these levels with significant spinal canal compromise. 2. Additional foci of metastatic disease at T7, T8 and likely T11. Please see above discussion. 3. MRI examination may be performed to further evaluate degree of epidural extension as clinically indicated. Kendall Butler MD Cervical Spine CT 11/02/17 0000 Signed Impressions: Service Date/Time: Thursday, November 02, 2017 13:38 - CONCLUSION: 1. 3 lytic lesions consistent with either metastatic disease or multiple myeloma. There is extension into the central canal involving the C3 lesion as detailed above. Carter Almodovar Jr., MD Breast Ultrasound 10/30/17 2213 Signed Impressions: Service Date/Time: Monday, October 30, 2017 22:25 - CONCLUSION: 1. Mass in left breast measuring up to 3 cm in diameter. Ultrasound core biopsy recommended. Jovanny Sal MD Head CT 10/30/17 1304 Signed Impressions: Service Date/Time: Monday, October 30, 2017 14:20 - CONCLUSION: Intracranial contents are unremarkable. Scattered nonspecific lucencies in the calvarium. Ulises Mckoy MD FACR Chest CT 10/30/17 0000 Signed Impressions: Service Date/Time: Monday, October 30, 2017 14:26 - CONCLUSION: The examination demonstrates a destructive lesion involving what are probably the T5 and T6 vertebral bodies. There does appear to be significant canal compromise with epidural spread of disease. This is highly suspicious for malignancy. Dedicated MRI imaging is warranted for further assessment. This lesion would be amenable to CT-guided biopsy for sampling. Papa Mckoy MD Abdomen/Pelvis CT 10/30/17 0000 Signed Impressions: Service Date/Time: Monday, October 30, 2017 14:26 - CONCLUSION: 1. Punctate nonobstructing stones in the kidneys bilaterally. 2. CT examination is otherwise within normal limits for age. Papa Mckoy MD (Jori Flores) Medical Decision Making Impression and Plan A: 62 y/o FM with severe C4-5 and C5-6 spinal stenosis with cord compression and spinal canals reduced down to less than 4 mm at both these levels with partial ossification of posterior longitudinal ligament. There are also lytic lesions involving C3 and C5 vertebral body. s/p C4/C5 and C5/C6 anterior cervical fusion on 11/05/17. She has very destructive T5 as well as T4 and T6 vertebral body lesions with severe kyphosis vertebral body height collapse along with the spinal canal involvement from the pathologic fracture and tumor. There is also partial pedicle involvement at the T7 and T8 pedicle and vertebral body. s/p Thoracic decompression and stabilization on 11/10/17. P: Continue with pain control OOB with TLSO brace on prior to sitting, standing, walking Following pathology. (Jori Flores) Attending Statement The exam, history, and the medical decision-making described in the above note were completed with the assistance of the mid-level provider. I reviewed and agree with the findings presented. I attest that I had a [id number] encounter with the patient on the same day, and personally performed and documented my assessment and findings in the medical record. (Kory Bell MD) Jori Flores Nov 12, 2017 10:08 Kory Bell MD Nov 12, 2017 15:49
--- NOTE | 2017-11-12 12:28 | HHI.PR ---
Subjective Remarks Follow-up history of breast cancer/rule out spinal metastases 11/10/17-patient seen and examined, complains of neck pain, denies any radiation to bilateral upper extremities. Denies any lower extremity pain. Currently nothing by mouth pending laminectomy. Afebrile 11/11/17-patient seen and examined, currently complains of back and neck pain. Afebrile. Case discussed with neurosurgery 11/12/17-patient seen and examined, complains of severe back pain. Afebrile Objective Vitals Vital Signs Date Time Temp Pulse Resp B/P (MAP) Pulse Ox O2 Delivery O2 Flow Rate FiO2 11/12/17 12:00 58 11/12/17 10:00 60 11/12/17 08:00 58 11/12/17 08:00 98.3 54 16 131/62 (85) 96 11/12/17 07:00 97 Room Air 11/12/17 06:00 60 11/12/17 05:18 22 11/12/17 04:00 54 11/12/17 04:00 98.3 54 10 146/65 (92) 96 11/12/17 02:00 64 11/12/17 00:00 98.3 56 10 152/66 (94) 94 11/12/17 00:00 56 11/11/17 22:00 66 11/11/17 22:00 10 11/11/17 20:45 97 21 11/11/17 20:00 58 11/11/17 20:00 98.1 58 15 154/68 (96) 98 11/11/17 19:00 97 Room Air 11/11/17 18:00 57 11/11/17 16:00 98.3 56 12 159/71 (100) 96 Arterial Line 11/11/17 16:00 56 11/11/17 15:41 96 21 11/11/17 14:17 18 11/11/17 14:00 57 11/11/17 14:00 18 I/O 11/11/17 11/11/17 11/11/17 11/12/17 11/12/17 11/12/17 07:00 15:00 23:00 07:00 15:00 23:00 Intake Total 1270 ml 100 ml 1283 ml 240 ml Output Total 775 ml 750 ml 1130 ml Balance 495 ml 100 ml 533 ml -890 ml Intake Oral 240 ml 240 ml IV Total 1270 ml 100 ml 1043 ml Output Urine Total 650 ml 700 ml 1100 ml Drainage Total 125 ml 50 ml 30 ml # Bowel Movements 0 0 Result Diagram: 11/11/1739911/11/17399 Objective Remarks GENERAL: NAD with Nikolai neck collar in place SKIN: Warm and dry. HEAD: Normocephalic. EYES: No scleral icterus. No injection or drainage. NECK: TTP, trachea midline. No JVD or lymphadenopathy.Nikolai neck collar in place CARDIOVASCULAR: Regular rate and rhythm without murmurs, gallops, or rubs. RESPIRATORY: Breath sounds equal bilaterally. No accessory muscle use. GASTROINTESTINAL: Abdomen soft, non-tender, nondistended. MUSCULOSKELETAL: No cyanosis, or edema. BACK: Nontender without obvious deformity. No CVA tenderness. Procedures 11/05 Anterior cervical partial C4 corpectomy, complete C5 corpectomy, and partial C6 corpectomy; anterior C4-6 interbody allograft fusion; anterior C4-6 cervical plate placement; microsurgical technique Pathologic thoracic spine T4, T5 and T6 vertebral body fractures with epidural neoplasm and associated severe vertebral body height collapse and kyphosis 11/10 Date of Insertion: Nov 05, 2017 A/P Problem List: (1) Pathologic thoracic fracture ICD Code: M84.48XA - Pathological fracture, other site, initial encounter for fracture Status: Acute (2) Metastatic bone cancer ICD Code: C41.9 - Malignant neoplasm of bone and articular cartilage, unspecified Status: Acute (3) Cervical spinal stenosis ICD Code: M48.02 - Spinal stenosis, cervical region Assessment and Plan 62-year-old female with Cervical Spinal stenosis.S/P Anterior cervical partial C4 corpectomy, complete C5 corpectomy, and partial C6 corpectomy; anterior C4-6 interbody allograft fusion; anterior C4-6 cervical plate placement; microsurgical technique-11/05 - Probable metastatic bone lesions - T5 , T6 pathologic fractures - Metastatic epidural spread - Left Breast mass - Neurosurgery and Oncology following. 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 - s/p T4-T6 laminectomy with neoplasm resection and T2-T9 fusion 11/10/17 -Pathology pending -OOB with TLSO brace in place - Hypertension continue on amlodipine 10 mg daily. Lopressor 12.5 mg po bid, Enalapril 2.5 mg po daily - Hypokalemia-resolved - smoker- counselled. Duo neb prn Incentive spirometry Lovenox - held Transfer to [facility] Problem Qualifiers (1) Pathologic thoracic fracture: Qualified Codes: M84.48XA - Pathological fracture, other site, initial encounter for fracture Jori James MD Nov 12, 2017 12:28
[2017-11-12] MEDS: MORPHINE SULFATE 30 MG/30 ML PCA IV SCH (14:25)
--- NOTE | 2017-11-12 16:06 | PD.ONC.PN ---
Subjective Subjective Remarks Events past week noted. Still on SLIP TENDER pump, very uncomfortable but feels pain from spinal cord compression relieved. Surgical pain in its place. Moves LE well. Brother at bedside. Objective Data Date Time Temp Pulse Resp B/P (MAP) Pulse Ox O2 Delivery O2 Flow Rate FiO2 11/12/17 14:25 18 11/12/17 14:00 18 11/12/17 12:00 58 11/12/17 10:00 60 11/12/17 08:00 58 11/12/17 08:00 98.3 54 16 131/62 (85) 96 11/12/17 07:00 97 Room Air 11/12/17 06:00 60 11/12/17 05:18 22 11/12/17 04:00 54 11/12/17 04:00 98.3 54 10 146/65 (92) 96 11/12/17 02:00 64 11/12/17 00:00 98.3 56 10 152/66 (94) 94 11/12/17 00:00 56 11/11/17 22:00 66 11/11/17 22:00 10 11/11/17 20:45 97 21 11/11/17 20:00 58 11/11/17 20:00 98.1 58 15 154/68 (96) 98 11/11/17 19:00 97 Room Air 11/11/17 18:00 57 11/11/17 16:00 98.3 56 12 159/71 (100) 96 Arterial Line 11/11/17 16:00 56 11/12/17 11/12/17 11/12/17 07:00 15:00 23:00 Intake Total 240 ml Output Total 1130 ml Balance -890 ml Result Diagram: 11/11/17 0400 11/11/17 0400 Administered Medications Medications (Trade) Dose Ordered Sig/Sandra Route PRN Reason Start Time Stop Time Status Last Admin Dose Admin Sodium Chloride (NS Flush) 2 ml UNSCH PRN IV FLUSH FLUSH AFTER USING IV ACCESS 10/30/17 15:45 11/12/17 05:14 Sodium Chloride (NS Flush) 2 ml BID IV FLUSH 10/30/17 21:00 11/12/17 09:00 Ondansetron HCl (Zofran Inj) 4 mg Q6H PRN IVP NAUSEA OR VOMITING 10/30/17 15:45 11/10/17 00:50 Magnesium Hydroxide (Milk Of Magnesia Liq) 30 ml Q12H PRN PO Mild constipation 10/30/17 15:45 11/08/17 08:55 Sennosides (Senokot) 17.2 mg Q12H PRN PO Moderate constipation 10/30/17 15:45 11/03/17 00:15 Lactulose (Lactulose Liq) 30 ml DAILY PRN PO SEVERE CONSITIPATION 10/30/17 15:45 11/08/17 03:59 Enoxaparin Sodium (Lovenox Inj) 40 mg Q24H SQ 10/30/17 19:00 Future hold 11/08/17 18:34 Clonidine (Catapres) 0.1 mg Q6H PRN PO SBP> OR = 180, DBP> OR = 100 10/31/17 21:45 11/07/17 13:32 Pantoprazole Sodium (Protonix) 40 mg DAILY PO 11/01/17 16:00 11/12/17 09:00 Amlodipine Besylate (Norvasc) 10 mg DAILY PO 11/01/17 16:00 11/12/17 09:00 Morphine Sulfate (Oramorph Sr) 30 mg Q8H PO 11/03/17 20:00 11/12/17 12:13 Sodium Chloride (Baby [place] Saline 0.65% Delio Drp/ [place]) 2 drop BID EACH NARE 11/03/17 21:00 11/11/17 20:18 Metoprolol Tartrate (Lopressor) 12.5 mg Q12HR PO 11/07/17 09:00 11/11/17 08:57 Docusate Sodium (Colace) 100 mg BID PO 11/07/17 09:00 11/12/17 09:00 Enalapril Maleate (Vasotec) 2.5 mg DAILY PO 11/08/17 09:00 11/12/17 09:00 Lactated Ringer's 1,000 ml @ 30 mls/hr Q24H PRN IV SEE LABEL COMMENTS 11/09/17 22:15 11/12/17 22:14 11/10/17 09:30 Potassium Chloride/Sodium Chloride 1,000 ml @ 100 mls/hr Q10H IV 11/10/17 16:59 11/12/17 08:59 Sodium Chloride (NS Flush) 2 ml BID IV FLUSH 11/10/17 21:00 11/12/17 09:00 Morphine Sulfate (Morphine 1 Mg/ ml SLIP TENDER) 30 mg UNSCH IV 11/10/17 17:00 11/12/17 14:25 SLIP TENDER Dosage Infused (Pha) 1 Q8HR .XX 11/10/17 17:00 11/12/17 14:00 Objective Remarks GENERAL: Middle aged female, sitting up in chair next to bed, hard collar SKIN: Warm and dry. HEAD: Normocephalic. EYES: No injection or drainage. NECK: Supple, trachea midline. CARDIOVASCULAR: Regular rate and rhythm RESPIRATORY: Breath sounds equal bilaterally. No accessory muscle use. GASTROINTESTINAL: Abdomen soft, non-tender, nondistended. EXTREMITIES: No cyanosis. R arm with BP cuff, mild swelling. NEUROLOGICAL: awake and alert, normal speech. moving all extremities. Assessment/Plan Problem List: (1) Breast mass ICD Codes: N63.0 - Unspecified lump in unspecified breast Status: Chronic Plan: 11/12/17. Discussed with pathology, cancer dx confirmed with adenocarcinoma. Etiology uncertain, additional stains pending. Advised pathology of breast cancer suspected with L breast mass 3cm present. Discussed concern for ER/OR/Her 2 testing on decalcified material, concern for false negative, although not sure if FISH testing would be affected for her 2. Discussed with patient and her brother the above concern. I propose biopsy of L breast mass to get receptor status, as PDL-1 would also be problematic in a decalcified material. Discussed with Dr. Mcbride possibility of CT guided or US guided biopsy, which he was agreeable to but the patient would not be able to comply today. General surgery generally are not able to do a bedside biopsy of palpable breast mass, discussed with numerical control tool programmer surgeon. If ER positive plan to start AI [place]. 11/11/17: awaiting pathology. discussed with patient pending path and concern for breast cancer with mets to bone. discussed continuing to heal from surgery while awaiting path result. 11/09/17: Discussed with Jori Flores, neurosurgery. They were unable to get biopsy of cervical tissue. Plan to get biopsy of thoracic tissue with 2nd surgery tomorrow. Assessment 62y/o female with breast mass and suspected spinal metastatic lesions. h/o chronic back pain. ++chronic tobacco use Plan 1. await pathology 2. continue SLIP TENDER pain management. 3. anticipate starting AI if ER positive 4. If ER negative plan for US guide biopsy of L breast mass by Dr. Mcbride. Renetta Avilez MD Nov 12, 2017 16:06
[2017-11-12] MEDS: DEXAMETHASONE 4 MG TAB PO SCH (20:39)
[2017-11-12] MEDS: ACETAMINOPHEN/HYDROcodone 325 MG/10 MG TAB PO PRN (22:11)
[2017-11-13] VITALS (9 sets, daily range): BP systolic 138–202; BP diastolic 58–84; PULSE 56–101; RESP 14–19; TEMP 96.3–98; O2SAT 93–98
[2017-11-13] MEDS: NS + KCL 20 MEQ INJ 1,000 ML IV SCH ×2 (03:42→13:32)
[2017-11-13] MEDS: MORPHINE SULFATE 30 MG CONTROLLED RELEASE TAB PO SCH ×3 (03:42→21:11)
[2017-11-13] MEDS: ACETAMINOPHEN/HYDROcodone 325 MG/10 MG TAB PO PRN ×2 (03:42→15:29)
[2017-11-13] MEDS: PCA - TOTAL MG MORPHINE DELIVERED PER SHIFT SCH ×3 (04:58→22:00)
[2017-11-13] MEDS: SODIUM CHLORIDE 0.9% FLUSH 10 ML FLUSH IV FLUSH SCH ×4 (09:00→21:18)
[2017-11-13] MEDS: SODIUM CHLORIDE 0.65% NASAL DRP/SPRY 30 ML BTL EACH NARE SCH ×2 (09:00→21:10)
[2017-11-13] MEDS: PANTOPRAZOLE SOD 40 MG DELAYED RELEASE TAB PO SCH (10:56)
[2017-11-13] MEDS: MAGNESIUM HYDROXIDE SUSP 30 ML CUP PO PRN (10:56)
[2017-11-13] MEDS: ENALAPRIL MALEATE 2.5 MG TAB PO SCH (10:56)
[2017-11-13] MEDS: DOCUSATE SODIUM 100 MG CAP PO SCH ×2 (10:57→21:10)
[2017-11-13] MEDS: amLODIPine BESYLATE 5 MG TAB PO SCH (10:57)
[2017-11-13] MEDS: DEXAMETHASONE 4 MG TAB PO SCH ×2 (10:57→21:10)
[2017-11-13] MEDS: METOPROLOL TARTRATE 25 MG TAB PO SCH ×2 (10:57→21:10)
--- NOTE | 2017-11-13 11:49 | PD.ONC.PN ---
Subjective Subjective Remarks Afebrile overnight. Patient resting in bed in nad. Upset that she can't find her glasses since she moved rooms. otherwise without complaint. ready to move forward with breast biopsy. Objective Data Date Time Temp Pulse Resp B/P (MAP) Pulse Ox O2 Delivery O2 Flow Rate FiO2 11/13/17 08:00 96.3 59 19 202/84 (123) 98 170/60 (96) 11/13/17 04:58 18 11/13/17 04:15 96.8 101 18 175/64 (101) 94 11/13/17 00:45 96.7 63 17 138/60 (86) 97 11/12/17 22:00 18 11/12/17 20:39 Room Air 11/12/17 20:20 96.5 74 17 173/67 (102) 93 11/12/17 19:48 94 11/12/17 16:00 98.0 59 20 153/62 (92) 98 11/12/17 16:00 58 11/12/17 14:30 20 11/12/17 14:25 18 11/12/17 14:00 60 11/12/17 14:00 18 11/12/17 12:00 98.3 54 16 140/64 (89) 96 11/12/17 12:00 58 11/13/17 11/13/17 11/13/17 07:00 15:00 23:00 Intake Total 1730 ml 720 ml Output Total 425 ml Balance 1730 ml 295 ml Result Diagram: 11/11/17 0400 11/11/17 0400 Administered Medications Medications (Trade) Dose Ordered Sig/Sandra Route PRN Reason Start Time Stop Time Status Last Admin Dose Admin Sodium Chloride (NS Flush) 2 ml UNSCH PRN IV FLUSH FLUSH AFTER USING IV ACCESS 10/30/17 15:45 11/12/17 05:14 Sodium Chloride (NS Flush) 2 ml BID IV FLUSH 10/30/17 21:00 11/12/17 20:39 Ondansetron HCl (Zofran Inj) 4 mg Q6H PRN IVP NAUSEA OR VOMITING 10/30/17 15:45 11/10/17 00:50 Magnesium Hydroxide (Milk Of Magnesia Liq) 30 ml Q12H PRN PO Mild constipation 10/30/17 15:45 11/13/17 10:56 Sennosides (Senokot) 17.2 mg Q12H PRN PO Moderate constipation 10/30/17 15:45 11/03/17 00:15 Lactulose (Lactulose Liq) 30 ml DAILY PRN PO SEVERE CONSITIPATION 10/30/17 15:45 11/08/17 03:59 Enoxaparin Sodium (Lovenox Inj) 40 mg Q24H SQ 10/30/17 19:00 Future hold 11/08/17 18:34 Clonidine (Catapres) 0.1 mg Q6H PRN PO SBP> OR = 180, DBP> OR = 100 10/31/17 21:45 11/07/17 13:32 Pantoprazole Sodium (Protonix) 40 mg DAILY PO 11/01/17 16:00 11/13/17 10:56 Amlodipine Besylate (Norvasc) 10 mg DAILY PO 11/01/17 16:00 11/13/17 10:57 Morphine Sulfate (Oramorph Sr) 30 mg Q8H PO 11/03/17 20:00 11/13/17 03:42 Sodium Chloride (Baby [place] Saline 0.65% Delio Drp/ [place]) 2 drop BID EACH NARE 11/03/17 21:00 11/11/17 20:18 Metoprolol Tartrate (Lopressor) 12.5 mg Q12HR PO 11/07/17 09:00 11/13/17 10:57 Docusate Sodium (Colace) 100 mg BID PO 11/07/17 09:00 11/13/17 10:57 Enalapril Maleate (Vasotec) 2.5 mg DAILY PO 11/08/17 09:00 11/13/17 10:56 Potassium Chloride/Sodium Chloride 1,000 ml @ 100 mls/hr Q10H IV 11/10/17 16:59 11/13/17 03:42 Sodium Chloride (NS Flush) 2 ml BID IV FLUSH 11/10/17 21:00 11/13/17 10:57 Acetaminophen/ Hydrocodone Bitart ([place] 10-325 Mg) 2 tab Q4H PRN PO PAIN SCALE 6 TO 10 11/10/17 17:00 11/13/17 03:42 Morphine Sulfate (Morphine 1 Mg/ ml DIRECT CARE WORKER) 30 mg UNSCH IV 11/10/17 17:00 11/12/17 14:25 DIRECT CARE WORKER Dosage Infused (Pha) 1 Q8HR .XX 11/10/17 17:00 11/13/17 04:58 Dexamethasone (Decadron) 4 mg Q12HR PO 11/12/17 21:00 11/13/17 10:57 Objective Remarks GENERAL: Middle aged female, lying in bed resting. neck in arlette collar. SKIN: Warm and dry. HEAD: Normocephalic. EYES: No injection or drainage. NECK: Supple, trachea midline. CARDIOVASCULAR: Regular rate and rhythm RESPIRATORY: Breath sounds equal bilaterally. No accessory muscle use. GASTROINTESTINAL: Abdomen soft, non-tender, nondistended. EXTREMITIES: No cyanosis NEUROLOGICAL: awake, alert. normal speech. Assessment/Plan Problem List: (1) Breast mass ICD Codes: N63.0 - Unspecified lump in unspecified breast Status: Chronic Plan: 11/13/17: discussed obtaining breast biopsy with patient, she states she is ok with proceeding today. will place orders. 11/12/17. Discussed with pathology, cancer dx confirmed with adenocarcinoma. Etiology uncertain, additional stains pending. Advised pathology of breast cancer suspected with L breast mass 3cm present. Discussed concern for ER/DE/Her 2 testing on decalcified material, concern for false negative, although not sure if FISH testing would be affected for her 2. Discussed with patient and her brother the above concern. I propose biopsy of L breast mass to get receptor status, as PDL-1 would also be problematic in a decalcified material. Discussed with Dr. Mcbride possibility of CT guided or US guided biopsy, which he was agreeable to but the patient would not be able to comply today. General surgery generally are not able to do a bedside biopsy of palpable breast mass, discussed with manager money surgeon. If ER positive plan to start AI [place]. 11/11/17: awaiting pathology. discussed with patient pending path and concern for breast cancer with mets to bone. discussed continuing to heal from surgery while awaiting path result. 11/09/17: Discussed with Jori Flores, neurosurgery. They were unable to get biopsy of cervical tissue. Plan to get biopsy of thoracic tissue with 2nd surgery tomorrow. Assessment 62y/o female with breast mass and suspected spinal metastatic lesions. h/o chronic back pain. ++chronic tobacco use Plan 1. order ultrasound guided biopsy of left breast mass in order to obtain receptor status that we cannot obtain through bone. 2. continue DIRECT CARE WORKER pain management. Attending Statement The exam, history, and the medical decision-making described in the above note were completed with the assistance of the mid-level provider. I reviewed and agree with the findings presented. I attest that I had a [id number] encounter with the patient on the same day, and personally performed and documented my assessment and findings in the medical record. Pt seen and examined back in rm [id number]. Pathology positive for ER, start AI for treatment of ER positive breast cancer. s/p R breast biopsy pending Her2 testing- IHC and FISH testing not possible with decalcified material. Monitor for toxicity related to breast cancer. Mayte Conrad Nov 13, 2017 11:49 Renetta Avilez MD Nov 13, 2017 18:16
--- NOTE | 2017-11-13 12:57 | HHI.PR ---
Subjective Remarks Follow-up history of breast cancer/rule out spinal metastases 11/10/17-patient seen and examined, complains of neck pain, denies any radiation to bilateral upper extremities. Denies any lower extremity pain. Currently nothing by mouth pending laminectomy. Afebrile 11/11/17-patient seen and examined, currently complains of back and neck pain. Afebrile. Case discussed with neurosurgery 11/12/17-patient seen and examined, complains of severe back pain. Afebrile 11/13/17-patient seen and examined, complains of nausea and emesis, afebrile. BP slightly up Objective Vitals Vital Signs Date Time Temp Pulse Resp B/P (MAP) Pulse Ox O2 Delivery O2 Flow Rate FiO2 11/13/17 08:00 96.3 59 19 202/84 (123) 98 170/60 (96) 11/13/17 04:58 18 11/13/17 04:15 96.8 101 18 175/64 (101) 94 11/13/17 00:45 96.7 63 17 138/60 (86) 97 11/12/17 22:00 18 11/12/17 20:39 Room Air 11/12/17 20:20 96.5 74 17 173/67 (102) 93 11/12/17 19:48 94 11/12/17 16:00 98.0 59 20 153/62 (92) 98 11/12/17 16:00 58 11/12/17 14:30 20 11/12/17 14:25 18 11/12/17 14:00 60 11/12/17 14:00 18 I/O 11/12/17 11/12/17 11/12/17 11/13/17 11/13/17 11/13/17 07:00 15:00 23:00 07:00 15:00 23:00 Intake Total 240 ml 1730 ml 720 ml Output Total 1130 ml 20 ml 425 ml Balance -890 ml -20 ml 1730 ml 295 ml Intake Oral 240 ml 720 ml IV Total 1730 ml Output Urine Total 1100 ml 425 ml Drainage Total 30 ml 20 ml # Voids 2 # Bowel Movements 0 0 Result Diagram: 11/11/17 0400 11/11/17 0400 Objective Remarks GENERAL: NAD with [place] neck collar in place SKIN: Warm and dry. HEAD: Normocephalic. EYES: No scleral icterus. No injection or drainage. NECK: TTP, trachea midline. No JVD or lymphadenopathy.[place] neck collar in place CARDIOVASCULAR: Regular rate and rhythm without murmurs, gallops, or rubs. RESPIRATORY: Breath sounds equal bilaterally. No accessory muscle use. GASTROINTESTINAL: Abdomen soft, non-tender, nondistended. MUSCULOSKELETAL: No cyanosis, or edema. BACK: Nontender without obvious deformity. No CVA tenderness. Procedures 11/05 Anterior cervical partial C4 corpectomy, complete C5 corpectomy, and partial C6 corpectomy; anterior C4-6 interbody allograft fusion; anterior C4-6 cervical plate placement; microsurgical technique Pathologic thoracic spine T4, T5 and T6 vertebral body fractures with epidural neoplasm and associated severe vertebral body height collapse and kyphosis 11/10 Date of Insertion: Nov 05, 2017 A/P Problem List: (1) Pathologic thoracic fracture ICD Code: M84.48XA - Pathological fracture, other site, initial encounter for fracture Status: Acute (2) Metastatic bone cancer ICD Code: C41.9 - Malignant neoplasm of bone and articular cartilage, unspecified Status: Acute (3) Cervical spinal stenosis ICD Code: M48.02 - Spinal stenosis, cervical region Assessment and Plan 62-year-old female with Cervical Spinal stenosis.S/P Anterior cervical partial C4 corpectomy, complete C5 corpectomy, and partial C6 corpectomy; anterior C4-6 interbody allograft fusion; anterior C4-6 cervical plate placement; microsurgical technique-11/05 - Probable metastatic bone lesions - T5 , T6 pathologic fractures - Metastatic epidural spread - Left Breast mass - Neurosurgery and Oncology following. 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 PT to treat and eval -Plan for ultrasound guided biopsy of left breast mass - Hypertension continue on amlodipine 10 mg daily. Lopressor 12.5 mg po bid, Enalapril 2.5 mg po daily - Hypokalemia-resolved - smoker- counselled. Duo neb prn Incentive spirometry Lovenox - held Problem Qualifiers (1) Pathologic thoracic fracture: Qualified Codes: M84.48XA - Pathological fracture, other site, initial encounter for fracture Jori James MD Nov 13, 2017:57
[2017-11-13] MEDS: ONDANSETRON HCL 4 MG/2 ML VIAL IVP PRN (13:32)
[2017-11-13] MEDS ORDERED: LIDOCAINE HCL 1% 20 ML VIAL ONE (16:31)
[2017-11-13] MEDS: SODIUM CHLORIDE 0.9% FLUSH 10 ML FLUSH IV FLUSH PRN (17:07)
[2017-11-13] MEDS: ENOXAPARIN SODIUM 40 MG/0.4 ML SYRINGE SQ SCH (17:12)
[2017-11-13] MEDS: LACTULOSE SYRUP 20 GM/30 ML CUP PO PRN (21:11)
[2017-11-14 00:15] VITALS: BP 138/76; PULSE 69; RESP 18; TEMP 96.3; O2SAT 97
[2017-11-14] MEDS: MORPHINE SULFATE 30 MG CONTROLLED RELEASE TAB PO SCH ×3 (04:49→20:34)
[2017-11-14] MEDS: PCA - TOTAL MG MORPHINE DELIVERED PER SHIFT SCH ×3 (06:00→20:34)
[2017-11-14 08:00] VITALS: BP 150/63; PULSE 57; RESP 18; TEMP 96; O2SAT 97
[2017-11-14 09:58] VITALS: O2SAT 97
--- NOTE | 2017-11-14 10:04 | HHI.PR ---
Subjective Remarks Follow-up history of breast cancer/rule out spinal metastases 11/10/17-patient seen and examined, complains of neck pain, denies any radiation to bilateral upper extremities. Denies any lower extremity pain. Currently nothing by mouth pending laminectomy. Afebrile 11/11/17-patient seen and examined, currently complains of back and neck pain. Afebrile. Case discussed with neurosurgery 11/12/17-patient seen and examined, complains of severe back pain. Afebrile 11/13/17-patient seen and examined, complains of nausea and emesis, afebrile. BP slightly up 11/14/17-patient seen and examined, s/p left breast biopsy yesterday. States she is feeling much better today . Pain to her back and neck better controlled Objective Vitals Vital Signs Date Time Temp Pulse Resp B/P (MAP) Pulse Ox O2 Delivery O2 Flow Rate FiO2 11/14/17 09:58 97 11/14/17 08:00 96.0 57 18 150/63 (92) 97 11/14/17 06:00 16 11/14/17 00:15 96.3 69 18 138/76 (96) 97 11/13/17 23:52 95 11/13/17 22:00 16 11/13/17 20:10 96.9 69 18 143/77 (99) 97 11/13/17 16:40 98.0 56 14 139/62 (87) 93 11/13/17 16:20 97.9 56 16 152/67 (95) 93 11/13/17 15:58 97.9 58 17 152/58 (89) 94 11/13/17 13:28 17 11/13/17 12:00 96.4 60 18 170/62 (98) 98 I/O 11/13/17 11/13/17 11/13/17 11/14/17 11/14/17 11/14/17 06:59 14:59 22:59 06:59 14:59 22:59 Intake Total 1730 ml 1656 ml 480 ml Output Total 425 ml Balance 1730 ml 1231 ml 480 ml Intake Oral 1120 ml 480 ml IV Total 1730 ml 536 ml Output Urine Total 425 ml # Voids 8 3 # Bowel Movements 0 0 Result Diagram: 11/11/17 0400 11/11/17 0400 Imaging Last Impressions Thoracic Spine X-Ray 11/10/17 0000 Signed Impressions: Service Date/Time: Friday, November 10, 2017 12:00 - CONCLUSION: 1. Postsurgical changes as above. Tanner Kaur MD Chest X-Ray 11/10/17 0000 Signed Impressions: Service Date/Time: Friday, November 10, 2017 17:47 - CONCLUSION: 1. No acute cardiopulmonary disease. Tanner Kaur MD Cervical Spine X-Ray 11/05/17 0000 Signed Impressions: Service Date/Time: October 08:07 - CONCLUSION: Intraoperative images. Carter Carver MD Thoracic Spine CT 11/02/17 0000 Signed Impressions: Service Date/Time: Thursday, November 02, 2017 13:48 - CONCLUSION: 1. 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 Although suboptimally evaluated with CT, there is large amount of epidural tumor extension at these levels with significant spinal canal compromise. 2. Additional foci of metastatic disease at T7, T8 and likely T11. Please see above discussion. 3. MRI examination may be performed to further evaluate degree of epidural extension as clinically indicated. Kendall Butler MD Cervical Spine CT 11/02/17 0000 Signed Impressions: Service Date/Time: Thursday, November 02, 2017 13:38 - CONCLUSION: 1. 3 lytic lesions consistent with either metastatic disease or multiple myeloma. There is extension into the central canal involving the C3 lesion as detailed above. Carter Almodovar Jr., MD Breast Ultrasound 10/30/17 2213 Signed Impressions: Service Date/Time: Monday, October 30, 2017 22:25 - CONCLUSION: 1. Mass in left breast measuring up to 3 cm in diameter. Ultrasound core biopsy recommended. Jovanny Sal MD Head CT 10/30/17 1304 Signed Impressions: Service Date/Time: Monday, October 30, 2017 14:20 - CONCLUSION: Intracranial contents are unremarkable. Scattered nonspecific lucencies in the calvarium. Ulises Mckoy MD FACR Chest CT 10/30/17 0000 Signed Impressions: Service Date/Time: Monday, October 30, 2017 14:26 - CONCLUSION: The examination demonstrates a destructive lesion involving what are probably the T5 and T6 vertebral bodies. There does appear to be significant canal compromise with epidural spread of disease. This is highly suspicious for malignancy. Dedicated MRI imaging is warranted for further assessment. This lesion would be amenable to CT-guided biopsy for sampling. Papa Mckoy MD Abdomen/Pelvis CT 10/30/17 0000 Signed Impressions: Service Date/Time: Monday, October 30, 2017 14:26 - CONCLUSION: 1. Punctate nonobstructing stones in the kidneys bilaterally. 2. CT examination is otherwise within normal limits for age. Papa Mckoy MD Objective Remarks GENERAL: NAD with [place] neck collar in place SKIN: Warm and dry. HEAD: Normocephalic. EYES: No scleral icterus. No injection or drainage. NECK: TTP, trachea midline. No JVD or lymphadenopathy.[place] neck collar in place CARDIOVASCULAR: Regular rate and rhythm without murmurs, gallops, or rubs. RESPIRATORY: Breath sounds equal bilaterally. No accessory muscle use. GASTROINTESTINAL: Abdomen soft, non-tender, nondistended. MUSCULOSKELETAL: No cyanosis, or edema. BACK: Nontender without obvious deformity. No CVA tenderness. Procedures 11/05 Anterior cervical partial C4 corpectomy, complete C5 corpectomy, and partial C6 corpectomy; anterior C4-6 interbody allograft fusion; anterior C4-6 cervical plate placement; microsurgical technique Pathologic thoracic spine T4, T5 and T6 vertebral body fractures with epidural neoplasm and associated severe vertebral body height collapse and kyphosis 11/10 Date of Insertion: Nov 05, 2017 A/P Problem List: (1) Pathologic thoracic fracture ICD Code: M84.48XA - Pathological fracture, other site, initial encounter for fracture Status: Acute (2) Metastatic bone cancer ICD Code: C41.9 - Malignant neoplasm of bone and articular cartilage, unspecified Status: Acute (3) Cervical spinal stenosis ICD Code: M48.02 - Spinal stenosis, cervical region Assessment and Plan 62-year-old female with Cervical Spinal stenosis.S/P Anterior cervical partial C4 corpectomy, complete C5 corpectomy, and partial C6 corpectomy; anterior C4-6 interbody allograft fusion; anterior C4-6 cervical plate placement; microsurgical technique-11/05 - Probable metastatic bone lesions - T5 , T6 pathologic fractures - Metastatic epidural spread - Left Breast mass - Neurosurgery and Oncology following. 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 PT to treat and eval -s/p ultrasound guided biopsy of left breast mass 11/13/17 with biopsy pending - Hypertension continue on amlodipine 10 mg daily. Lopressor 12.5 mg po bid, Enalapril 2.5 mg po daily - Hypokalemia-resolved - smoker- counselled. Duo neb prn Incentive spirometry Lovenox - DVT prophylaxis Problem Qualifiers (1) Pathologic thoracic fracture: Qualified Codes: M84.48XA - Pathological fracture, other site, initial encounter for fracture Jori James MD Nov 14, 2017 10:04
[2017-11-14] MEDS: PANTOPRAZOLE SOD 40 MG DELAYED RELEASE TAB PO SCH (10:15)
[2017-11-14] MEDS: METOPROLOL TARTRATE 25 MG TAB PO SCH ×2 (10:15→20:33)
[2017-11-14] MEDS: amLODIPine BESYLATE 5 MG TAB PO SCH (10:15)
[2017-11-14] MEDS: DEXAMETHASONE 4 MG TAB PO SCH ×2 (10:15→20:34)
[2017-11-14] MEDS: DOCUSATE SODIUM 100 MG CAP PO SCH ×2 (10:15→20:34)
[2017-11-14] MEDS: ANASTROZOLE 1 MG TAB PO SCH (10:16)
[2017-11-14] MEDS: SODIUM CHLORIDE 0.65% NASAL DRP/SPRY 30 ML BTL EACH NARE SCH ×2 (10:18→21:00)
[2017-11-14] MEDS: NS + KCL 20 MEQ INJ 1,000 ML IV SCH ×2 (10:19→14:04)
[2017-11-14] MEDS: SODIUM CHLORIDE 0.9% FLUSH 10 ML FLUSH IV FLUSH SCH ×4 (10:19→20:34)
[2017-11-14] MEDS: ENALAPRIL MALEATE 2.5 MG TAB PO SCH (10:20)
[2017-11-14 12:00] VITALS: BP 139/75; PULSE 69; RESP 18; TEMP 97.1; O2SAT 97
--- NOTE | 2017-11-14 12:21 | RADRPT ---
EXAM DATE/TIME: 11/13/2017 15:53 [facility] COMPARISON: No previous studies available for comparison. INDICATIONS : Left breast mass. MEDICAL HISTORY : Hypertension. Cardiac disorder. Thoracic lession. SURGICAL HISTORY : None. ENCOUNTER: Initial ACUITY: 1 day PAIN SCORE: 0/10 LOCATION: Left ORGAN: Left breast SPECIMENS: Three core specimen(s) submitted for pathologic evaluation. DEVICE: 18 gauge Bio Pince needle Post procedure scanning reveals no hematoma or other complication. The possibility does exist that the tissue obtained will be non-diagnostic. If the sample is non-rene gnostic a repeat biopsy or surgical biopsy may need to be performed. TECHNIQUE: 1. Ultrasound guidance for needle biopsy. 2. Needle biopsy. The risks, benefits and alternatives to the procedure were explained and verbal and written consent w as obtained. The site was prepped in sterile fashion. Full sterile technique was used, including ca p, mask, sterile gloves and gown and a large sterile sheet. Hand hygiene and 2% chlorhexidine and/or betadine/alcohol prep was utilized per protocol for cutaneous antisepsis. The skin and subcutaneous tissues were infiltrated with local anesthetic solution. Sterile gel and sterile probe cover were u tilized for ultrasound guidance. Patient has known metastatic disease to the lumbar spine. I've been asked to obtain tissue from patricia st mass for receptor studies and genetics. 318 gauge cores were obtained from the palpable mass under ultrasound guidance. The patient tolerated the procedure well and left the ultrasound suite in stable condition. CONCLUSION: Uncomplicated ultrasound guided needle biopsy of palpable left breast mass under ultrasound guidance. Ulises Mckoy MD FACR on November 14, 2017 at 12:19 Board Certified Radiologist. This report was verified electronically.
--- NOTE | 2017-11-14 12:49 | HHI.NSPN ---
(Denisa Henson) Note Status Status: Progress Note (Denisa Henson) Interval History Interval History This is a 62-year-old female patient without previous significant medical history. She presents at the request of her primary care physician because of continued pain in her back. The patient apparently was seen by her primary care physician who ordered an MRI of the cervical and thoracic spine and because of abnormal findings, she was sent to the emergency room here at [place] for further evaluation. The patient reports having pain for approximately one month in the mid-back. She denies any neck pain and denies any lower back pain. She denies any radiation of pain to the arms or any radiation of pain into the legs. She denies any numbness. She reports that she is ambulatory without any problems. The patient reports she does not regularly see a physician, and denies any other medical problems. 11/02/17: Pt awakens to voice complains of mid back thoracic spine pain with radiation into bilateral ribs under her breast bilaterally. She denies any numbness or paresthesias in her chest or LEs. She states she has a chronic history of stress and urge incontinence but no marysol incontinence. No weakness in LEs. She denies any neck pain. 11/03/17: Patient is awake and alert. She complains of mid thoracic back pain radiating under her breasts bilaterally. She also complains of left triceps tightness/discomfort. Patient states that she has not discussed with the rest of her family her options. 11/04/17: Pt states when laying down her neck pain is controlled. She does have some discomfort/tightness in the right triceps area. No paresthesias in UEs or LEs. She has good strength on testing in LEs. Mild 4/5 left deltoid, triceps and biceps strength. Pt states she is ready to have surgery tomorrow. 11/06/17: Pt awake and alert. She states the pain and strength in the LUE is improved. 11/07/17: Pt awake and alert. Complains of pain in thoracic spine with radiation under bilateral breasts. She states her cervical spine feels good without radiculopathy in UEs. 11/08/17: Pt awakens to voice. Denies any neck pain. Left arm tightness and discomfort resolved. 11/09/17: Pt awake and alert. Complains of generally being uncomfortable from her back pain. She states the left upper extremity tightness is better. We plan on stabilizing her thoracic spine tomorrow. 11/11/17: Pt awake and alert. Complains of thoracic incisional pain. Pain not radiating in ribs currently. Denies paresthesias in LEs. 11/12/17: Pt awakens to voice. Complains of incisional back pain. Some discomfort in ribs but improved from preop. DORIS drain in place. 11/14: resting comfortably in bed (Denisa Henson) Labs, Micro, & Vital Signs Results Date Time Temp Pulse Resp B/P (MAP) Pulse Ox O2 Delivery O2 Flow Rate FiO2 11/14/17 12:00 97.1 69 18 139/75 (96) 97 11/14/17 09:58 97 11/14/17 08:00 96.0 57 18 150/63 (92) 97 11/14/17 06:00 16 11/14/17 00:15 96.3 69 18 138/76 (96) 97 11/13/17 23:52 95 11/13/17 22:00 16 11/13/17 20:10 96.9 69 18 143/77 (99) 97 11/13/17 16:40 98.0 56 14 139/62 (87) 93 11/13/17 16:20 97.9 56 16 152/67 (95) 93 11/13/17 15:58 97.9 58 17 152/58 (89) 94 11/13/17 13:28 17 Constitutional Vital Signs Date Time Temp Pulse Resp B/P (MAP) Pulse Ox O2 Delivery O2 Flow Rate FiO2 11/14/17 12:00 97.1 69 18 139/75 (96) 97 11/14/17 09:58 97 11/14/17 08:00 96.0 57 18 150/63 (92) 97 11/14/17 06:00 16 11/14/17 00:15 96.3 69 18 138/76 (96) 97 11/13/17 23:52 95 11/13/17 22:00 16 11/13/17 20:10 96.9 69 18 143/77 (99) 97 11/13/17 16:40 98.0 56 14 139/62 (87) 93 11/13/17 16:20 97.9 56 16 152/67 (95) 93 11/13/17 15:58 97.9 58 17 152/58 (89) 94 11/13/17 13:28 17 (Denisa Henson) Physical Exam General: laying in bed, appears comfortable in no acute distress Resp: CTA bilaterally Heart: regular rate Skin: No cyanosis or erythema. Muscle: Left deltoid, triceps, and biceps weakness improving 4+/5 otherwise 5/ 5 strength in UEs and LEs 5/5. Neck: [place] cervical collar in place. Neuro: Pt awake and alert. (Denisa Henson) Medications Current Medications Current Medications Medications (Trade) Dose Ordered Sig/Sandra Route PRN Reason Start Time Stop Time Status Last Admin Dose Admin Sodium Chloride (NS Flush) 2 ml UNSCH PRN IV FLUSH FLUSH AFTER USING IV ACCESS 10/30/17 15:45 11/13/17 17:07 Sodium Chloride (NS Flush) 2 ml BID IV FLUSH 10/30/17 21:00 11/12/17 20:39 Acetaminophen (Tylenol) 500 mg Q4H PRN PO Headache, fever, pain 1-4 10/30/17 15:45 Ondansetron HCl (Zofran Inj) 4 mg Q6H PRN IVP NAUSEA OR VOMITING 10/30/17 15:45 11/13/17 13:32 Temazepam (Restoril) 15 mg HS PRN PO INSOMNIA 10/30/17 15:45 Naloxone HCl (Narcan Inj) 0.4 mg UNSCH PRN IV PUSH SEE LABEL COMMENTS 10/30/17 15:45 Magnesium Hydroxide (Milk Of Magnesia Liq) 30 ml Q12H PRN PO Mild constipation 10/30/17 15:45 11/13/17 10:56 Sennosides (Senokot) 17.2 mg Q12H PRN PO Moderate constipation 10/30/17 15:45 11/03/17 00:15 Bisacodyl (Dulcolax Supp) 10 mg DAILY PRN RECTAL SEVERE CONSITIPATION 10/30/17 15:45 Lactulose (Lactulose Liq) 30 ml DAILY PRN PO SEVERE CONSITIPATION 10/30/17 15:45 11/13/17 21:11 Enoxaparin Sodium (Lovenox Inj) 40 mg Q24H SQ 10/30/17 19:00 Future hold 11/13/17 17:12 Clonidine (Catapres) 0.1 mg Q6H PRN PO SBP> OR = 180, DBP> OR = 100 10/31/17 21:45 11/07/17 13:32 Calcium Carbonate (Tums Chew) 500 mg Q2H PRN CHEW GERD 11/01/17 16:00 Pantoprazole Sodium (Protonix) 40 mg DAILY PO 11/01/17 16:00 11/14/17 10:15 Amlodipine Besylate (Norvasc) 10 mg DAILY PO 11/01/17 16:00 11/14/17 10:15 Morphine Sulfate (Oramorph Sr) 30 mg Q8H PO 11/03/17 20:00 11/14/17 04:49 Sodium Chloride (Baby [place] Saline 0.65% Delio Drp/ [place]) 2 drop BID EACH NARE 11/03/17 21:00 11/14/17 10:18 Metoprolol Tartrate (Lopressor) 12.5 mg Q12HR PO 11/07/17 09:00 11/14/17 10:15 Docusate Sodium (Colace) 100 mg BID PO 11/07/17 09:00 11/14/17 10:15 Miscellaneous (Pill Splitter) 1 ea UNSCH PRN OTHER SEE LABEL COMMENTS 11/07/17 08:00 Enalapril Maleate (Vasotec) 2.5 mg DAILY PO 11/08/17 09:00 11/14/17 10:20 Potassium Chloride/Sodium Chloride 1,000 ml @ 100 mls/hr Q10H IV 11/10/17 16:59 11/13/17 13:32 Sodium Chloride (NS Flush) 2 ml UNSCH PRN IV FLUSH FLUSH AFTER USING IV ACCESS 11/10/17 17:00 Sodium Chloride (NS Flush) 2 ml BID IV FLUSH 11/10/17 21:00 11/13/17 10:57 Promethazine HCl (Phenergan Inj) 25 mg Q4H PRN IM NAUSEA OR VOMITING 11/10/17 17:00 Calcium Gluconate 1 gm/Sodium Chloride 110 ml @ 110 mls/hr UNSCH PRN IV SEE LABEL COMMENTS 11/10/17 17:00 Potassium Chloride 100 ml @ 50 mls/hr UNSCH PRN IV POTASSIUM LESS THAN 4 11/10/17 17:00 Magnesium Sulfate 2 gm/Sodium Chloride 104 ml @ 100 mls/hr UNSCH PRN IV MAGNESIUM LESS THAN 2 11/10/17 17:00 Acetaminophen/ Hydrocodone Bitart ([place] 10-325 Mg) 1 tab Q4H PRN PO PAIN SCALE 1 TO 5 11/10/17 17:00 Acetaminophen/ Hydrocodone Bitart ([place] 10-325 Mg) 2 tab Q4H PRN PO PAIN SCALE 6 TO 10 11/10/17 17:00 11/13/17 15:29 Cyclobenzaprine HCl (Flexeril) 10 mg Q8H PRN PO MUSCLE SPASM 11/10/17 17:00 Albuterol Sulfate (Albuterol Neb) 2.5 mg Q4HR NEB PRN NEB WHEEZING 11/10/17 17:00 Naloxone HCl (Narcan Inj) 0.4 mg UNSCH PRN IV PUSH RESPIRATORY RATE LESS THAN 10 11/10/17 17:00 Diphenhydramine HCl (Benadryl Inj) 25 mg Q6H PRN IV PUSH ITCHING 11/10/17 17:00 Morphine Sulfate (Morphine 1 Mg/ ml PANELBOARD OPERATOR) 30 mg UNSCH IV 11/10/17 17:00 11/12/17 14:25 PANELBOARD OPERATOR Dosage Infused (Pha) 1 Q8HR .XX 11/10/17 17:00 11/14/17 06:00 Dexamethasone (Decadron) 4 mg Q12HR PO 11/12/17 21:00 11/14/17 10:15 Anastrozole (Arimidex) 1 mg DAILY PO 11/14/17 09:00 11/14/17 10:16 (Denisa Henson) Medical Decision Making MDM Remarks 62 y/o female with severe C4-5 and C5-6 spinal stenosis with cord compression and spinal canals reduced down to less than 4 mm at both these levels with partial ossification of posterior longitudinal ligament. There are also lytic lesions involving C3 and C5 vertebral body. s/p C4/C5 and C5/C6 anterior cervical fusion on 11/05/17. She has very destructive T5 as well as T4 and T6 vertebral body lesions with severe kyphosis vertebral body height collapse along with the spinal canal involvement from the pathologic fracture and tumor. There is also partial pedicle involvement at the T7 and T8 pedicle and vertebral body. s/p Thoracic decompression and stabilization on 11/10/17. pathology reports adenocarcinoma and suggest a neoplasm of breast origin. (Denisa Henson) Plan Plan Remarks cont current care maintain cervical collar TLSO when out of bed cont supportive care therapy (Denisa Henson) Attending Statement The exam, history, and the medical decision-making described in the above note were completed with the assistance of the mid-level provider. I reviewed and agree with the findings presented. I attest that I had a [id number] encounter with the patient on the same day, and personally performed and documented my assessment and findings in the medical record. (Rauhl Nguyen MD) Denisa Henson Nov 14, 2017 12:49 Rahul Nguyen MD Nov 16, 2017 12:46
[2017-11-14 16:00] VITALS: BP 132/70; PULSE 69; RESP 18; TEMP 97.6; O2SAT 96
[2017-11-14] MEDS: ENOXAPARIN SODIUM 40 MG/0.4 ML SYRINGE SQ SCH (18:09)
[2017-11-14 20:00] VITALS: BP 135/62; PULSE 70; RESP 16; TEMP 96.4; O2SAT 97
[2017-11-15] VITALS: BP 151/60; PULSE 54; RESP 16; TEMP 96.5; O2SAT 96
[2017-11-15] MEDS: MORPHINE SULFATE 30 MG CONTROLLED RELEASE TAB PO SCH ×3 (04:39→21:06)
[2017-11-15] MEDS: PCA - TOTAL MG MORPHINE DELIVERED PER SHIFT SCH ×3 (04:40→21:45)
[2017-11-15 08:00] VITALS: BP 155/63; PULSE 63; RESP 18; TEMP 96; O2SAT 97
[2017-11-15] MEDS: SODIUM CHLORIDE 0.9% FLUSH 10 ML FLUSH IV FLUSH SCH ×4 (09:00→21:00)
[2017-11-15 09:22] LABS: AUTOMATED NEUTROPHIL # 14.5 TH/MM3 (1.8-7.7); BASOPHIL % 0.2 % (0.0-2.0); HEMOGLOBIN 11.3 GM/DL (11.6-15.3); LYMPH % 4.9 % (9.0-44.0); LYMPHOCYTE # 0.8 TH/MM3 (1.0-4.8); MEAN CELL VOLUME 101.8 FL (80.0-100.0); MEAN CORPUSCULAR HEMOGLOBIN 34.8 PG (27.0-34.0); MEAN CORPUSCULAR HGB CONC 34.2 % (32.0-36.0); MEAN PLATELET VOLUME 9.5 FL (7.0-11.0); MONO % 6.3 % (0.0-8.0); NEUT % 88.6 % (16.0-70.0); PLATELET COUNT 171 TH/MM3 (150-450); RED BLOOD COUNT 3.24 MIL/MM3 (4.00-5.30); RED CELL DISTRIBUTION WIDTH 13.7 % (11.6-17.2); WHITE BLOOD COUNT 16.4 TH/MM3 (4.0-11.0)
--- NOTE | 2017-11-15 09:32 | HHI.PR ---
Subjective Remarks Follow-up history of breast cancer/rule out spinal metastases 11/10/17-patient seen and examined, complains of neck pain, denies any radiation to bilateral upper extremities. Denies any lower extremity pain. Currently nothing by mouth pending laminectomy. Afebrile 11/11/17-patient seen and examined, currently complains of back and neck pain. Afebrile. Case discussed with neurosurgery 11/12/17-patient seen and examined, complains of severe back pain. Afebrile 11/13/17-patient seen and examined, complains of nausea and emesis, afebrile. BP slightly up 11/14/17-patient seen and examined, s/p left breast biopsy yesterday. States she is feeling much better today . Pain to her back and neck better controlled 11/15/17-patient seen and examined, Still requiring SEAMLESS HOSIERY KNITTER pump, afebrile and no acute event overnight. Objective Vitals Vital Signs Date Time Temp Pulse Resp B/P (MAP) Pulse Ox O2 Delivery O2 Flow Rate FiO2 11/15/17 08:00 96.0 63 18 155/63 (93) 97 11/15/17 00:00 96.5 54 16 151/60 (90) 96 11/14/17 20:34 16 11/14/17 20:00 96.4 70 16 135/62 (86) 97 11/14/17 16:00 97.6 69 18 132/70 (90) 96 11/14/17 16:00 16 11/14/17 14:04 16 11/14/17 12:00 97.1 69 18 139/75 (96) 97 11/14/17 09:58 97 I/O 11/14/17 11/14/17 11/14/17 11/15/17 11/15/17 11/15/17 07:00 15:00 23:00 07:00 15:00 23:00 Intake Total 480 ml 480 ml 400 ml Balance 480 ml 480 ml 400 ml Intake Oral 480 ml 480 ml 400 ml # Voids 3 2 1 1 # Bowel Movements 0 0 Result Diagram: 11/15/17 0858 11/11/17 0400 Objective Remarks GENERAL: NAD with [place] neck collar in place SKIN: Warm and dry. HEAD: Normocephalic. EYES: No scleral icterus. No injection or drainage. NECK: TTP, trachea midline. No JVD or lymphadenopathy.[place] neck collar in place CARDIOVASCULAR: Regular rate and rhythm without murmurs, gallops, or rubs. RESPIRATORY: Breath sounds equal bilaterally. No accessory muscle use. GASTROINTESTINAL: Abdomen soft, non-tender, nondistended. MUSCULOSKELETAL: No cyanosis, or edema. BACK: Nontender without obvious deformity. No CVA tenderness. Procedures 11/05 Anterior cervical partial C4 corpectomy, complete C5 corpectomy, and partial C6 corpectomy; anterior C4-6 interbody allograft fusion; anterior C4-6 cervical plate placement; microsurgical technique Pathologic thoracic spine T4, T5 and T6 vertebral body fractures with epidural neoplasm and associated severe vertebral body height collapse and kyphosis 11/10 Date of Insertion: Nov 05, 2017 A/P Problem List: (1) Pathologic thoracic fracture ICD Code: M84.48XA - Pathological fracture, other site, initial encounter for fracture Status: Acute (2) Metastatic bone cancer ICD Code: C41.9 - Malignant neoplasm of bone and articular cartilage, unspecified Status: Acute (3) Cervical spinal stenosis ICD Code: M48.02 - Spinal stenosis, cervical region Assessment and Plan 62-year-old female with Cervical Spinal stenosis.S/P Anterior cervical partial C4 corpectomy, complete C5 corpectomy, and partial C6 corpectomy; anterior C4-6 interbody allograft fusion; anterior C4-6 cervical plate placement; microsurgical technique-11/05 - Probable metastatic bone lesions - T5 , T6 pathologic fractures - Metastatic epidural spread - Left Breast mass - Neurosurgery and Oncology following. - Continue schedule SEAMLESS HOSIERY KNITTER, Percocet when necessary -Continue with Decadron Q12H - s/p T4-T6 laminectomy with neoplasm resection and T2-T9 fusion 11/10/17 -Pathology reports adenocarcinoma and suggest a neoplasm of breast origin. -OOB with TLSO brace in place. PT to treat and eval -s/p ultrasound guided biopsy of left breast mass 11/13/17 with biopsy pending - Hypertension continue on amlodipine 10 mg daily. Lopressor 12.5 mg po bid, Enalapril 2.5 mg po daily - Hypokalemia-resolved - smoker- counselled. Duo neb prn Incentive spirometry Lovenox - DVT prophylaxis Problem Qualifiers (1) Pathologic thoracic fracture: Qualified Codes: M84.48XA - Pathological fracture, other site, initial encounter for fracture Pontey,Jori MD Nov 15, 2017 09:32
[2017-11-15 10:31] LABS: ALBUMIN 2.3 GM/DL (3.4-5.0); AST (GOT) 26 U/L (15-37); BICARBONATE 26.2 MEQ/L (21.0-32.0); BLOOD UREA NITROGEN 29 MG/DL (7-18); CALCIUM 8.4 MG/DL (8.5-10.1); CHLORIDE 103 MEQ/L (98-107); CREATININE 0.55 MG/DL (0.50-1.00); GLOMERULAR FILTRATION RATE 111 ML/MIN (>89); GLUCOSE,RANDOM 101 MG/DL (74-106); SODIUM (NA) 136 MEQ/L (136-145)
[2017-11-15 10:35] LABS: ALKALINE PHOSPHATASE 100 U/L (45-117); ALT (GPT) 42 U/L (10-53); TOTAL BILIRUBIN ADULT 0.7 MG/DL (0.2-1.0); TOTAL PROTEIN 5.6 GM/DL (6.4-8.2)
[2017-11-15] MEDS: amLODIPine BESYLATE 5 MG TAB PO SCH (11:07)
[2017-11-15] MEDS: DOCUSATE SODIUM 100 MG CAP PO SCH ×2 (11:07→21:05)
[2017-11-15] MEDS: ANASTROZOLE 1 MG TAB PO SCH (11:07)
[2017-11-15] MEDS: DEXAMETHASONE 4 MG TAB PO SCH ×2 (11:07→21:05)
[2017-11-15] MEDS: METOPROLOL TARTRATE 25 MG TAB PO SCH ×2 (11:07→21:06)
[2017-11-15] MEDS: ENALAPRIL MALEATE 2.5 MG TAB PO SCH (11:08)
[2017-11-15] MEDS: PANTOPRAZOLE SOD 40 MG DELAYED RELEASE TAB PO SCH (11:08)
[2017-11-15 12:00] VITALS: BP 125/60; PULSE 68; RESP 18; TEMP 96.8; O2SAT 97
--- NOTE | 2017-11-15 12:27 | HHI.NSPN ---
(Denisa Henson) Note Status Status: Progress Note (Denisa Henson) Interval History Interval History This is a 62-year-old female patient without previous significant medical history. She presents at the request of her primary care physician because of continued pain in her back. The patient apparently was seen by her primary care physician who ordered an MRI of the cervical and thoracic spine and because of abnormal findings, she was sent to the emergency room here at [facility] for further evaluation. The patient reports having pain for approximately one month in the mid-back. She denies any neck pain and denies any lower back pain. She denies any radiation of pain to the arms or any radiation of pain into the legs. She denies any numbness. She reports that she is ambulatory without any problems. The patient reports she does not regularly see a physician, and denies any other medical problems. 11/02/17: Pt awakens to voice complains of mid back thoracic spine pain with radiation into bilateral ribs under her breast bilaterally. She denies any numbness or paresthesias in her chest or LEs. She states she has a chronic history of stress and urge incontinence but no mayrsol incontinence. No weakness in LEs. She denies any neck pain. 11/03/17: Patient is awake and alert. She complains of mid thoracic back pain radiating under her breasts bilaterally. She also complains of left triceps tightness/discomfort. Patient states that she has not discussed with the rest of her family her options. 11/04/17: Pt states when laying down her neck pain is controlled. She does have some discomfort/tightness in the right triceps area. No paresthesias in UEs or LEs. She has good strength on testing in LEs. Mild 4/5 left deltoid, triceps and biceps strength. Pt states she is ready to have surgery tomorrow. 11/06/17: Pt awake and alert. She states the pain and strength in the LUE is improved. 11/07/17: Pt awake and alert. Complains of pain in thoracic spine with radiation under bilateral breasts. She states her cervical spine feels good without radiculopathy in UEs. 11/08/17: Pt awakens to voice. Denies any neck pain. Left arm tightness and discomfort resolved. 11/09/17: Pt awake and alert. Complains of generally being uncomfortable from her back pain. She states the left upper extremity tightness is better. We plan on stabilizing her thoracic spine tomorrow. 11/11/17: Pt awake and alert. Complains of thoracic incisional pain. Pain not radiating in ribs currently. Denies paresthesias in LEs. 11/12/17: Pt awakens to voice. Complains of incisional back pain. Some discomfort in ribs but improved from preop. DORIS drain in place. 11/14: resting comfortably in bed 11/15:sitting up in chair, c/o brace not very comfortable. otherwise doing ok, pain controlled on current regimen (Denisa Henson) Labs, Micro, & Vital Signs Results Date Time Temp Pulse Resp B/P (MAP) Pulse Ox O2 Delivery O2 Flow Rate FiO2 11/15/17 08:00 96.0 63 18 155/63 (93) 97 11/15/17 00:00 96.5 54 16 151/60 (90) 96 11/14/17 20:34 16 11/14/17 20:00 96.4 70 16 135/62 (86) 97 11/14/17 16:00 97.6 69 18 132/70 (90) 96 11/14/17 16:00 16 11/14/17 14:04 16 Constitutional Vital Signs Date Time Temp Pulse Resp B/P (MAP) Pulse Ox O2 Delivery O2 Flow Rate FiO2 11/15/17 08:00 96.0 63 18 155/63 (93) 97 11/15/17 00:00 96.5 54 16 151/60 (90) 96 11/14/17 20:34 16 11/14/17 20:00 96.4 70 16 135/62 (86) 97 11/14/17 16:00 97.6 69 18 132/70 (90) 96 11/14/17 16:00 16 11/14/17 14:04 16 (Denisa Henson) Physical Exam General: sitting up in chair cervicothoracolumbar brace not fitting correctly, collar is riding up too high into the face not providing proper support to cervical spine Resp: CTA bilaterally Heart: regular rate Skin: No cyanosis or erythema. Muscle: Left deltoid, triceps, and biceps weakness improving 4+/5 otherwise 5/ 5 strength in UEs and LEs 5/5. Neuro: Pt awake and alert. (Denisa Henson) Medications Current Medications Current Medications Medications (Trade) Dose Ordered Sig/Sandra Route PRN Reason Start Time Stop Time Status Last Admin Dose Admin Sodium Chloride (NS Flush) 2 ml UNSCH PRN IV FLUSH FLUSH AFTER USING IV ACCESS 10/30/17 15:45 11/13/17 17:07 Sodium Chloride (NS Flush) 2 ml BID IV FLUSH 10/30/17 21:00 11/12/17 20:39 Acetaminophen (Tylenol) 500 mg Q4H PRN PO Headache, fever, pain 1-4 10/30/17 15:45 Ondansetron HCl (Zofran Inj) 4 mg Q6H PRN IVP NAUSEA OR VOMITING 10/30/17 15:45 11/13/17 13:32 Temazepam (Restoril) 15 mg HS PRN PO INSOMNIA 10/30/17 15:45 Naloxone HCl (Narcan Inj) 0.4 mg UNSCH PRN IV PUSH SEE LABEL COMMENTS 10/30/17 15:45 Magnesium Hydroxide (Milk Of Magnesia Liq) 30 ml Q12H PRN PO Mild constipation 10/30/17 15:45 11/13/17 10:56 Sennosides (Senokot) 17.2 mg Q12H PRN PO Moderate constipation 10/30/17 15:45 11/03/17 00:15 Bisacodyl (Dulcolax Supp) 10 mg DAILY PRN RECTAL SEVERE CONSITIPATION 10/30/17 15:45 Lactulose (Lactulose Liq) 30 ml DAILY PRN PO SEVERE CONSITIPATION 10/30/17 15:45 11/13/17 21:11 Enoxaparin Sodium (Lovenox Inj) 40 mg Q24H SQ 10/30/17 19:00 Future hold 11/14/17 18:09 Clonidine (Catapres) 0.1 mg Q6H PRN PO SBP> OR = 180, DBP> OR = 100 10/31/17 21:45 11/07/17 13:32 Calcium Carbonate (Tums Chew) 500 mg Q2H PRN CHEW GERD 11/01/17 16:00 Pantoprazole Sodium (Protonix) 40 mg DAILY PO 11/01/17 16:00 11/15/17 11:08 Amlodipine Besylate (Norvasc) 10 mg DAILY PO 11/01/17 16:00 11/15/17 11:07 Morphine Sulfate (Oramorph Sr) 30 mg Q8H PO 11/03/17 20:00 11/15/17 04:39 Sodium Chloride (Baby [place] Saline 0.65% Delio Drp/ [place]) 2 drop BID EACH NARE 11/03/17 21:00 11/14/17 10:18 Metoprolol Tartrate (Lopressor) 12.5 mg Q12HR PO 11/07/17 09:00 11/15/17 11:07 Docusate Sodium (Colace) 100 mg BID PO 11/07/17 09:00 11/15/17 11:07 Miscellaneous (Pill Splitter) 1 ea UNSCH PRN OTHER SEE LABEL COMMENTS 11/07/17 08:00 Enalapril Maleate (Vasotec) 2.5 mg DAILY PO 11/08/17 09:00 11/15/17 11:08 Potassium Chloride/Sodium Chloride 1,000 ml @ 100 mls/hr Q10H IV 11/10/17 16:59 11/14/17 14:04 Sodium Chloride (NS Flush) 2 ml UNSCH PRN IV FLUSH FLUSH AFTER USING IV ACCESS 11/10/17 17:00 Sodium Chloride (NS Flush) 2 ml BID IV FLUSH 11/10/17 21:00 11/13/17 10:57 Promethazine HCl (Phenergan Inj) 25 mg Q4H PRN IM NAUSEA OR VOMITING 11/10/17 17:00 Calcium Gluconate 1 gm/Sodium Chloride 110 ml @ 110 mls/hr UNSCH PRN IV SEE LABEL COMMENTS 11/10/17 17:00 Potassium Chloride 100 ml @ 50 mls/hr UNSCH PRN IV POTASSIUM LESS THAN 4 11/10/17 17:00 Magnesium Sulfate 2 gm/Sodium Chloride 104 ml @ 100 mls/hr UNSCH PRN IV MAGNESIUM LESS THAN 2 11/10/17 17:00 Acetaminophen/ Hydrocodone Bitart ([place] 10-325 Mg) 1 tab Q4H PRN PO PAIN SCALE 1 TO 5 11/10/17 17:00 Acetaminophen/ Hydrocodone Bitart ([place] 10-325 Mg) 2 tab Q4H PRN PO PAIN SCALE 6 TO 10 11/10/17 17:00 11/13/17 15:29 Cyclobenzaprine HCl (Flexeril) 10 mg Q8H PRN PO MUSCLE SPASM 11/10/17 17:00 11/14/17 14:04 Albuterol Sulfate (Albuterol Neb) 2.5 mg Q4HR NEB PRN NEB WHEEZING 11/10/17 17:00 Naloxone HCl (Narcan Inj) 0.4 mg UNSCH PRN IV PUSH RESPIRATORY RATE LESS THAN 10 11/10/17 17:00 Diphenhydramine HCl (Benadryl Inj) 25 mg Q6H PRN IV PUSH ITCHING 11/10/17 17:00 Morphine Sulfate (Morphine 1 Mg/ ml [employer]) 30 mg UNSCH IV 11/10/17 17:00 11/12/17 14:25 SVP [employer] Dosage Infused (Pha) 1 Q8HR .XX 11/10/17 17:00 11/15/17 04:40 Dexamethasone (Decadron) 4 mg Q12HR PO 11/12/17 21:00 11/15/17 11:07 Anastrozole (Arimidex) 1 mg DAILY PO 11/14/17 09:00 11/15/17 11:07 (Denisa Henson) Medical Decision Making MDM Remarks 62 y/o female with severe C4-5 and C5-6 spinal stenosis with cord compression and spinal canals reduced down to less than 4 mm at both these levels with partial ossification of posterior longitudinal ligament. There are also lytic lesions involving C3 and C5 vertebral body. s/p C4/C5 and C5/C6 anterior cervical fusion on 11/05/17. She has very destructive T5 as well as T4 and T6 vertebral body lesions with severe kyphosis vertebral body height collapse along with the spinal canal involvement from the pathologic fracture and tumor. There is also partial pedicle involvement at the T7 and T8 pedicle and vertebral body. s/p Thoracic decompression and stabilization on 11/10/17. pathology reports adenocarcinoma and suggest a neoplasm of breast origin. (Denisa Henson) Plan Plan Remarks cont current care reevaluate brace - orthotech service requested cont supportive care therapy (Denisa Henson) Attending Statement The exam, history, and the medical decision-making described in the above note were completed with the assistance of the mid-level provider. I reviewed and agree with the findings presented. I attest that I had a [id number] encounter with the patient on the same day, and personally performed and documented my assessment and findings in the medical record. (Rahul Nguyen MD) Denisa Henson Nov 15, 2017 12:27 Rahul Nguyen MD Nov 16, 2017 13:04
[2017-11-15 16:00] VITALS: BP 141/58; PULSE 69; RESP 18; TEMP 97.5; O2SAT 97
[2017-11-15] MEDS: NS + KCL 20 MEQ INJ 1,000 ML IV SCH (16:59)
[2017-11-15] MEDS: ENOXAPARIN SODIUM 40 MG/0.4 ML SYRINGE SQ SCH (17:55)
[2017-11-15 20:00] VITALS: BP 163/62; PULSE 61; RESP 16; TEMP 96.1; O2SAT 98
[2017-11-15] MEDS: SODIUM CHLORIDE 0.65% NASAL DRP/SPRY 30 ML BTL EACH NARE SCH (21:00)
[2017-11-15] MEDS: MAGNESIUM HYDROXIDE SUSP 30 ML CUP PO PRN (21:06)
--- NOTE | 2017-11-15 21:16 | HHI.NSPN ---
Labs, Micro, & Vital Signs Results Date Time Temp Pulse Resp B/P (MAP) Pulse Ox O2 Delivery O2 Flow Rate FiO2 11/15/17 17:20 16 11/15/17 16:00 97.5 69 18 141/58 (85) 97 11/15/17 12:00 96.8 68 18 125/60 (81) 97 11/15/17 08:00 Room Air 11/15/17 08:00 96.0 63 18 155/63 (93) 97 11/15/17 00:00 96.5 54 16 151/60 (90) 96 11/16/17 07:00 Intake Total 360 ml Balance 360 ml Constitutional Vital Signs Date Time Temp Pulse Resp B/P (MAP) Pulse Ox O2 Delivery O2 Flow Rate FiO2 11/15/17 17:20 16 11/15/17 16:00 97.5 69 18 141/58 (85) 97 11/15/17 12:00 96.8 68 18 125/60 (81) 97 11/15/17 08:00 Room Air 11/15/17 08:00 96.0 63 18 155/63 (93) 97 11/15/17 00:00 96.5 54 16 151/60 (90) 96 11/16/17 07:00 Intake Total 360 ml Balance 360 ml Physical Exam General: sitting up in chair cervicothoracolumbar brace not fitting correctly, collar is riding up too high into the face not providing proper support to cervical spine Resp: CTA bilaterally Heart: regular rate Skin: No cyanosis or erythema. Muscle: Left deltoid, triceps, and biceps weakness improving 4+/5 otherwise 5/ 5 strength in UEs and LEs 5/5. Neuro: Pt awake and alert. Rahul Nguyen MD Nov 15, 2017 21:16
[2017-11-16] VITALS (8 sets, daily range): BP systolic 118–149; BP diastolic 52–72; PULSE 50–69; RESP 16–18; TEMP 96.2–98.1; O2SAT 95–98
[2017-11-16] MEDS: MORPHINE SULFATE 30 MG CONTROLLED RELEASE TAB PO SCH ×3 (04:00→20:24)
[2017-11-16] MEDS: NS + KCL 20 MEQ INJ 1,000 ML IV SCH (04:39)
[2017-11-16] MEDS: PCA - TOTAL MG MORPHINE DELIVERED PER SHIFT SCH ×3 (04:40→20:27)
[2017-11-16] MEDS: SODIUM CHLORIDE 0.65% NASAL DRP/SPRY 30 ML BTL EACH NARE SCH ×2 (09:00→20:24)
[2017-11-16] MEDS: SODIUM CHLORIDE 0.9% FLUSH 10 ML FLUSH IV FLUSH SCH ×2 (09:00→20:23)
[2017-11-16] MEDS: PANTOPRAZOLE SOD 40 MG DELAYED RELEASE TAB PO SCH (10:20)
--- NOTE | 2017-11-16 10:20 | HHI.PR ---
Subjective Remarks Follow-up history of breast cancer/rule out spinal metastases 11/10/17-patient seen and examined, complains of neck pain, denies any radiation to bilateral upper extremities. Denies any lower extremity pain. Currently nothing by mouth pending laminectomy. Afebrile 11/11/17-patient seen and examined, currently complains of back and neck pain. Afebrile. Case discussed with neurosurgery 11/12/17-patient seen and examined, complains of severe back pain. Afebrile 11/13/17-patient seen and examined, complains of nausea and emesis, afebrile. BP slightly up 11/14/17-patient seen and examined, s/p left breast biopsy yesterday. States she is feeling much better today . Pain to her back and neck better controlled 11/15/17-patient seen and examined, Still requiring BLOCK SAWYER pump, afebrile and no acute event overnight. 11/16/17-patient seen and examined, doing well and no significant complaint this AM Objective Vitals Vital Signs Date Time Temp Pulse Resp B/P (MAP) Pulse Ox O2 Delivery O2 Flow Rate FiO2 11/16/17 08:00 96.3 60 18 149/72 (97) 97 11/16/17 05:00 96.9 11/16/17 00:00 96.2 50 16 128/59 (82) 95 11/15/17 21:45 16 11/15/17 20:00 96.1 61 16 163/62 (95) 98 11/15/17 17:20 16 11/15/17 16:00 97.5 69 18 141/58 (85) 97 11/15/17 12:00 96.8 68 18 125/60 (81) 97 I/O 11/15/17 11/15/17 11/15/17 11/16/17 11/16/17 11/16/17 07:00 15:00 23:00 07:00 15:00 23:00 Intake Total 360 ml 100 ml 1000 ml Balance 360 ml 100 ml 1000 ml Intake Oral 360 ml 100 ml IV Total 1000 ml # Voids 1 3 1 # Bowel Movements 0 Result Diagram: 11/15/17 0858 11/15/17 0858 Imaging Last Impressions Soft Tissue Biopsy 11/13/17 0000 Signed Impressions: Service Date/Time: Monday, November 13, 2017 15:53 - CONCLUSION: Uncomplicated ultrasound guided needle biopsy of palpable left breast mass under ultrasound guidance. Ulises Mckoy MD FACR Thoracic Spine X-Ray 11/10/17 0000 Signed Impressions: Service Date/Time: Friday, November 10, 2017 12:00 - CONCLUSION: 1. Postsurgical changes as above. Tanner Kaur MD Chest X-Ray 11/10/17 0000 Signed Impressions: Service Date/Time: Friday, November 10, 2017 17:47 - CONCLUSION: 1. No acute cardiopulmonary disease. Tanner Kaur MD Cervical Spine X-Ray 11/05/17 0000 Signed Impressions: Service Date/Time: October 08:07 - CONCLUSION: Intraoperative images. Carter Carver MD Thoracic Spine CT 11/02/17 0000 Signed Impressions: Service Date/Time: Thursday, November 02, 2017 13:48 - CONCLUSION: 1. 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 Although suboptimally evaluated with CT, there is large amount of epidural tumor extension at these levels with significant spinal canal compromise. 2. Additional foci of metastatic disease at T7, T8 and likely T11. Please see above discussion. 3. MRI examination may be performed to further evaluate degree of epidural extension as clinically indicated. Kendall Butler MD Cervical Spine CT 11/02/17 0000 Signed Impressions: Service Date/Time: Thursday, November 02, 2017 13:38 - CONCLUSION: 1. 3 lytic lesions consistent with either metastatic disease or multiple myeloma. There is extension into the central canal involving the C3 lesion as detailed above. Carter Almodovar Jr., MD Breast Ultrasound 10/30/17 2213 Signed Impressions: Service Date/Time: Monday, October 30, 2017 22:25 - CONCLUSION: 1. Mass in left breast measuring up to 3 cm in diameter. Ultrasound core biopsy recommended. Jovanny Sal MD Head CT 10/30/17 1304 Signed Impressions: Service Date/Time: Monday, October 30, 2017 14:20 - CONCLUSION: Intracranial contents are unremarkable. Scattered nonspecific lucencies in the calvarium. Ulises Mckoy MD FACR Chest CT 10/30/17 0000 Signed Impressions: Service Date/Time: Monday, October 30, 2017 14:26 - CONCLUSION: The examination demonstrates a destructive lesion involving what are probably the T5 and T6 vertebral bodies. There does appear to be significant canal compromise with epidural spread of disease. This is highly suspicious for malignancy. Dedicated MRI imaging is warranted for further assessment. This lesion would be amenable to CT-guided biopsy for sampling. Papa Mckoy MD Abdomen/Pelvis CT 10/30/17 0000 Signed Impressions: Service Date/Time: Monday, October 30, 2017 14:26 - CONCLUSION: 1. Punctate nonobstructing stones in the kidneys bilaterally. 2. CT examination is otherwise within normal limits for age. Papa Mckoy MD Objective Remarks GENERAL: NAD with [place] neck collar in place SKIN: Warm and dry. HEAD: Normocephalic. EYES: No scleral icterus. No injection or drainage. NECK: TTP, trachea midline. No JVD or lymphadenopathy.[place] neck collar in place CARDIOVASCULAR: Regular rate and rhythm without murmurs, gallops, or rubs. RESPIRATORY: Breath sounds equal bilaterally. No accessory muscle use. GASTROINTESTINAL: Abdomen soft, non-tender, nondistended. MUSCULOSKELETAL: No cyanosis, or edema. BACK: Nontender without obvious deformity. No CVA tenderness. Procedures 11/05 Anterior cervical partial C4 corpectomy, complete C5 corpectomy, and partial C6 corpectomy; anterior C4-6 interbody allograft fusion; anterior C4-6 cervical plate placement; microsurgical technique Pathologic thoracic spine T4, T5 and T6 vertebral body fractures with epidural neoplasm and associated severe vertebral body height collapse and kyphosis 11/10 Date of Insertion: Nov 05, 2017 A/P Problem List: (1) Pathologic thoracic fracture ICD Code: M84.48XA - Pathological fracture, other site, initial encounter for fracture Status: Acute (2) Metastatic bone cancer ICD Code: C41.9 - Malignant neoplasm of bone and articular cartilage, unspecified Status: Acute (3) Cervical spinal stenosis ICD Code: M48.02 - Spinal stenosis, cervical region Assessment and Plan 62-year-old female with Cervical Spinal stenosis.S/P Anterior cervical partial C4 corpectomy, complete C5 corpectomy, and partial C6 corpectomy; anterior C4-6 interbody allograft fusion; anterior C4-6 cervical plate placement; microsurgical technique-11/05 - Probable metastatic bone lesions - T5 , T6 pathologic fractures - Metastatic epidural spread - Left Breast mass - Neurosurgery and Oncology following. - Continue schedule BLOCK SAWYER, Percocet when necessary -Continue with Decadron Q12H - s/p T4-T6 laminectomy with neoplasm resection and T2-T9 fusion 11/10/17 -Pathology reports adenocarcinoma and suggest a neoplasm of breast origin. -OOB with TLSO brace in place. PT to treat and eval -s/p ultrasound guided biopsy of left breast mass 11/13/17 with biopsy still pending - Hypertension continue on amlodipine 10 mg daily. Lopressor 12.5 mg po bid, Enalapril 2.5 mg po daily - Hypokalemia-resolved - smoker- counselled. Duo neb prn Incentive spirometry Lovenox - DVT prophylaxis Problem Qualifiers (1) Pathologic thoracic fracture: Qualified Codes: M84.48XA - Pathological fracture, other site, initial encounter for fracture Jori James MD Nov 16, 2017 10:20
[2017-11-16] MEDS: METOPROLOL TARTRATE 25 MG TAB PO SCH ×2 (10:21→20:23)
[2017-11-16] MEDS: DOCUSATE SODIUM 100 MG CAP PO SCH ×2 (10:21→20:23)
[2017-11-16] MEDS: ANASTROZOLE 1 MG TAB PO SCH (10:21)
[2017-11-16] MEDS: DEXAMETHASONE 4 MG TAB PO SCH ×2 (10:21→20:23)
[2017-11-16] MEDS: amLODIPine BESYLATE 5 MG TAB PO SCH (10:22)
[2017-11-16] MEDS: LACTULOSE SYRUP 20 GM/30 ML CUP PO PRN (10:22)
[2017-11-16] MEDS: ENALAPRIL MALEATE 2.5 MG TAB PO SCH (10:22)
--- NOTE | 2017-11-16 12:47 | PD.ONC.PN ---
Subjective Subjective Remarks Afebrile overnight. patient resting in room. still feeling weak overall. states she has a hard time getting up without assistance. tolerating Armidex. has not had any hot flashes. did notice a tinge of nausea this morning. Objective Data Date Time Temp Pulse Resp B/P (MAP) Pulse Ox O2 Delivery O2 Flow Rate FiO2 11/16/17 12:00 96.9 69 17 139/69 (92) 96 11/16/17 08:00 96.3 60 18 149/72 (97) 97 11/16/17 05:00 96.9 11/16/17 00:00 96.2 50 16 128/59 (82) 95 11/15/17 21:45 16 11/15/17 20:00 96.1 61 16 163/62 (95) 98 11/15/17 17:20 16 11/15/17 16:00 97.5 69 18 141/58 (85) 97 11/16/17 11/16/17 11/16/17 07:00 15:00 23:00 Intake Total 1000 ml Balance 1000 ml Result Diagram: 11/15/17 0858 11/15/17 0858 Administered Medications Medications (Trade) Dose Ordered Sig/Sandra Route PRN Reason Start Time Stop Time Status Last Admin Dose Admin Sodium Chloride (NS Flush) 2 ml UNSCH PRN IV FLUSH FLUSH AFTER USING IV ACCESS 10/30/17 15:45 11/13/17 17:07 Sodium Chloride (NS Flush) 2 ml BID IV FLUSH 10/30/17 21:00 11/12/17 20:39 Ondansetron HCl (Zofran Inj) 4 mg Q6H PRN IVP NAUSEA OR VOMITING 10/30/17 15:45 11/13/17 13:32 Magnesium Hydroxide (Milk Of Magnesia Liq) 30 ml Q12H PRN PO Mild constipation 10/30/17 15:45 11/15/17 21:06 Sennosides (Senokot) 17.2 mg Q12H PRN PO Moderate constipation 10/30/17 15:45 11/03/17 00:15 Lactulose (Lactulose Liq) 30 ml DAILY PRN PO SEVERE CONSITIPATION 10/30/17 15:45 11/16/17 10:22 Enoxaparin Sodium (Lovenox Inj) 40 mg Q24H SQ 2/16/18 19:00 Future hold 11/15/17 17:55 Clonidine (Catapres) 0.1 mg Q6H PRN PO SBP> OR = 180, DBP> OR = 100 10/31/17 21:45 11/07/17 13:32 Calcium Carbonate (Tums Chew) 500 mg Q2H PRN CHEW GERD 11/01/17 16:00 11/15/17 17:55 Pantoprazole Sodium (Protonix) 40 mg DAILY PO 11/01/17 16:00 11/16/17 10:20 Amlodipine Besylate (Norvasc) 10 mg DAILY PO 11/01/17 16:00 11/16/17 10:22 Morphine Sulfate (Oramorph Sr) 30 mg Q8H PO 11/03/17 20:00 11/15/17 21:06 Sodium Chloride (Baby [place] Saline 0.65% Delio Drp/ [place]) 2 drop BID EACH NARE 11/03/17 21:00 11/16/17 09:00 Metoprolol Tartrate (Lopressor) 12.5 mg Q12HR PO 11/07/17 09:00 11/16/17 10:21 Docusate Sodium (Colace) 100 mg BID PO 11/07/17 09:00 11/16/17 10:21 Enalapril Maleate (Vasotec) 2.5 mg DAILY PO 11/08/17 09:00 11/16/17 10:22 Acetaminophen/ Hydrocodone Bitart (White 10-325 Mg) 2 tab Q4H PRN PO PAIN SCALE 6 TO 10 11/10/17 17:00 11/13/17 15:29 Cyclobenzaprine HCl (Flexeril) 10 mg Q8H PRN PO MUSCLE SPASM 11/10/17 17:00 11/14/17 14:04 Morphine Sulfate (Morphine 1 Mg/ ml PRICE CHECKER) 30 mg UNSCH IV 11/10/17 17:00 11/12/17 14:25 PRICE CHECKER Dosage Infused (Pha) 1 Q8HR .XX 11/10/17 17:00 11/16/17 04:40 Dexamethasone (Decadron) 4 mg Q12HR PO 11/12/17 21:00 11/16/17 10:21 Anastrozole (Arimidex) 1 mg DAILY PO 11/14/17 09:00 11/16/17 10:21 Objective Remarks GENERAL: Middle aged female, sitting up in bed in nad SKIN: Warm and dry. HEAD: Normocephalic. EYES: No injection or drainage. NECK: Supple, trachea midline. CARDIOVASCULAR: Regular rate and rhythm RESPIRATORY: Breath sounds equal bilaterally. No accessory muscle use. GASTROINTESTINAL: Abdomen soft, non-tender, nondistended. EXTREMITIES: No cyanosis NEUROLOGICAL: awake and alert, normal speech. moving all extremities. Assessment/Plan Problem List: (1) Breast mass ICD Codes: N63.0 - Unspecified lump in unspecified breast Status: Chronic Plan: 11/16/17: continue Arimidex. discussed waiting on breast pathology for the final pathology results. ER/[place]/HER2 testing. 11/13/17: underwent breast biopsy 11/12/17. Discussed with pathology, cancer dx confirmed with adenocarcinoma. Etiology uncertain, additional stains pending. Advised pathology of breast cancer suspected with L breast mass 3cm present. Discussed concern for [place]/Her 2 testing on decalcified material, concern for false negative, although not sure if FISH testing would be affected for her 2. Discussed with patient and her brother the above concern. I propose biopsy of L breast mass to get receptor status, as PDL-1 would also be problematic in a decalcified material. Discussed with Dr. Mcbride possibility of CT guided or US guided biopsy, which he was agreeable to but the patient would not be able to comply today. General surgery generally are not able to do a bedside biopsy of palpable breast mass, discussed with nutrition intern surgeon. If ER positive plan to start AI [place]. 11/11/17: awaiting pathology. discussed with patient pending path and concern for breast cancer with mets to bone. discussed continuing to heal from surgery while awaiting path result. 11/09/17: Discussed with Jori Flores, neurosurgery. They were unable to get biopsy of cervical tissue. Plan to get biopsy of thoracic tissue with 2nd surgery tomorrow. Assessment 62y/o female with breast mass and suspected spinal metastatic lesions. h/o chronic back pain. ++chronic tobacco use Plan 1. patient can follow up in clinic when discharged from the hospital 2. continue Arimidex. 3. continue supportive care. Attending Statement The exam, history, and the medical decision-making described in the above note were completed with the assistance of the mid-level provider. I reviewed and agree with the findings presented. I attest that I had a [id number] encounter with the patient on the same day, and personally performed and documented my assessment and findings in the medical record. Noted results of breast biopsy, not enough tissue to do Her 2 or PDL1 staining. Defer on repeat biopsy for now. Discussed results with patient. Pt may have better outcome with outpatient equipment for US guided breast mass biopsy. Meantime continue plans for recovery. Continue Arimidex which patient is tolerating well. Anticipate adding bisphosphonate as adjunctive therapy on out patient basis. Not certain of benefit immediately after surgery when there is bone healing. Mayte Conrad Nov 16, 2017 12:47 Renetta Avilez MD Nov 16, 2017 18:27
[2017-11-16] MEDS: ENOXAPARIN SODIUM 40 MG/0.4 ML SYRINGE SQ SCH (18:46)
[2017-11-16] MEDS: ACETAMINOPHEN/HYDROcodone 325 MG/10 MG TAB PO PRN (18:46)
--- NOTE | 2017-11-16 23:56 | HHI.NSPN ---
History Chief Complaint: Thoracic spine pain controlled with pain medication. Interval History 62-year-old male status post C4-C6 partial/total corpectomy anterior reconstruction as well as T4-6 compression and stabilization for metastatic spine lesions. Exam Results Vital Signs Date Time Temp Pulse Resp B/P (MAP) Pulse Ox O2 Delivery O2 Flow Rate FiO2 11/16/17 20:49 98.1 59 18 132/62 (85) 98 11/16/17 20:25 Room Air Intake and Output 11/16/17 11/16/17 11/17/17 08:00 16:00 00:00 Intake Total 1000 ml 960 ml 480 ml Balance 1000 ml 960 ml 480 ml Physical Examination General: sitting up in bed Cervical collar in place Resp: CTA bilaterally Heart: regular rate Skin: No cyanosis or erythema. Muscle: Left deltoid, triceps, and biceps weakness improving 4+/5 otherwise 5/ 5 strength in UEs and LEs 5/5. Neuro: Pt awake and alert. Speech is clear. Follows commands well. Oriented conversant and appropriate Medical Decision Making Impression and Plan Impression: 1.'s stable neurologic exam following cervical and thoracic decompression and stabilization for multiple metastatic spine lesions. 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
[2017-11-17 04:59] VITALS: BP 96/55; PULSE 56; RESP 18; TEMP 96.7; O2SAT 97
[2017-11-17] MEDS: MORPHINE SULFATE 30 MG CONTROLLED RELEASE TAB PO SCH ×2 (04:59→12:46)
[2017-11-17] MEDS: SENNOSIDES 8.6 MG TAB PO PRN ×2 (06:31→10:25)
[2017-11-17 08:00] VITALS: BP 124/58; PULSE 52; RESP 18; TEMP 96.5; O2SAT 98
[2017-11-17] MEDS: amLODIPine BESYLATE 5 MG TAB PO SCH (09:00)
[2017-11-17] MEDS: SODIUM CHLORIDE 0.65% NASAL DRP/SPRY 30 ML BTL EACH NARE SCH (09:00)
[2017-11-17] MEDS: METOPROLOL TARTRATE 25 MG TAB PO SCH (09:00)
--- NOTE | 2017-11-17 10:04 | HHI.PR ---
Subjective Remarks Follow-up history of breast cancer/rule out spinal metastases 11/10/17-patient seen and examined, complains of neck pain, denies any radiation to bilateral upper extremities. Denies any lower extremity pain. Currently nothing by mouth pending laminectomy. Afebrile 11/11/17-patient seen and examined, currently complains of back and neck pain. Afebrile. Case discussed with neurosurgery 11/12/17-patient seen and examined, complains of severe back pain. Afebrile 11/13/17-patient seen and examined, complains of nausea and emesis, afebrile. BP slightly up 11/14/17-patient seen and examined, s/p left breast biopsy yesterday. States she is feeling much better today . 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 11/16/17-patient seen and examined, doing well and no significant complaint this AM 11/17/17-patient seen and examined, Afebrile and no acute event overnight Objective Vitals Vital Signs Date Time Temp Pulse Resp B/P (MAP) Pulse Ox O2 Delivery O2 Flow Rate FiO2 11/17/17 08:00 96.5 52 18 124/58 (80) 98 11/17/17 04:59 96.7 56 18 96/55 (69) 97 11/16/17 23:18 97.2 58 17 125/71 (89) 96 11/16/17 20:49 98.1 59 18 132/62 (85) 98 11/16/17 20:25 Room Air 11/16/17 20:03 95 11/16/17 16:02 96.8 57 18 118/52 (74) 96 11/16/17 12:00 96.9 69 17 139/69 (92) 96 I/O 11/16/17 11/16/17 11/16/17 11/17/17 11/17/17 11/17/17 07:00 15:00 23:00 07:00 15:00 23:00 Intake Total 1000 ml 960 ml 480 ml 360 ml Balance 1000 ml 960 ml 480 ml 360 ml Intake Oral 960 ml 480 ml 360 ml IV Total 1000 ml # Voids 4 3 2 # Bowel Movements 0 0 0 Result Diagram: 11/15/1758 11/15/17857 Objective Remarks GENERAL: NAD with [place] neck collar in place SKIN: Warm and dry. HEAD: Normocephalic. EYES: No scleral icterus. No injection or drainage. NECK: TTP, trachea midline. No JVD or lymphadenopathy.[place] neck collar in place CARDIOVASCULAR: Regular rate and rhythm without murmurs, gallops, or rubs. RESPIRATORY: Breath sounds equal bilaterally. No accessory muscle use. GASTROINTESTINAL: Abdomen soft, non-tender, nondistended. MUSCULOSKELETAL: No cyanosis, or edema. BACK: Nontender without obvious deformity. No CVA tenderness. Procedures 11/05 Anterior cervical partial C4 corpectomy, complete C5 corpectomy, and partial C6 corpectomy; anterior C4-6 interbody allograft fusion; anterior C4-6 cervical plate placement; microsurgical technique Pathologic thoracic spine T4, T5 and T6 vertebral body fractures with epidural neoplasm and associated severe vertebral body height collapse and kyphosis 11/10 Date of Insertion: Nov 05, 2017 A/P Problem List: (1) Pathologic thoracic fracture ICD Code: M84.48XA - Pathological fracture, other site, initial encounter for fracture Status: Acute (2) Metastatic bone cancer ICD Code: C41.9 - Malignant neoplasm of bone and articular cartilage, unspecified Status: Acute (3) Cervical spinal stenosis ICD Code: M48.02 - Spinal stenosis, cervical region Assessment and Plan 62-year-old female with Cervical Spinal stenosis.S/P Anterior cervical partial C4 corpectomy, complete C5 corpectomy, and partial C6 corpectomy; anterior C4-6 interbody allograft fusion; anterior C4-6 cervical plate placement; microsurgical technique-11/05 - Probable metastatic bone lesions - T5 , T6 pathologic fractures - Metastatic epidural spread - Left Breast mass - Neurosurgery and Oncology following. - Continue Percocet when necessary -wean off Decadron Q12H - s/p T4-T6 laminectomy with neoplasm resection and T2-T9 fusion 11/10/17 -Pathology reports adenocarcinoma and suggest a neoplasm of breast origin. -OOB with TLSO brace in place. PT to treat and eval -s/p ultrasound guided biopsy of left breast mass 11/13/17 and biopsy positive for Infiltrating ductal carcinoma -Continue with Aridimex - Hypertension continue on amlodipine 10 mg daily. Lopressor 12.5 mg po bid, Enalapril 2.5 mg po daily - Hypokalemia-resolved - smoker- counselled. Duo neb prn Incentive spirometry Lovenox - DVT prophylaxis Discharge Planning Likely discharge to [facility] Problem Qualifiers (1) Pathologic thoracic fracture: Qualified Codes: M84.48XA - Pathological fracture, other site, initial encounter for fracture Jori James MD Nov 17, 2017 10:04
[2017-11-17] MEDS: PANTOPRAZOLE SOD 40 MG DELAYED RELEASE TAB PO SCH (10:11)
[2017-11-17] MEDS: DOCUSATE SODIUM 100 MG CAP PO SCH (10:20)
[2017-11-17] MEDS: ANASTROZOLE 1 MG TAB PO SCH (10:20)
[2017-11-17] MEDS: ENALAPRIL MALEATE 2.5 MG TAB PO SCH (10:20)
[2017-11-17] MEDS: ACETAMINOPHEN/HYDROcodone 325 MG/10 MG TAB PO PRN (10:21)
[2017-11-17] MEDS: SODIUM CHLORIDE 0.9% FLUSH 10 ML FLUSH IV FLUSH SCH (10:21)
[2017-11-17] MEDS: MAGNESIUM HYDROXIDE SUSP 30 ML CUP PO PRN (10:25)
[2017-11-17] MEDS: LACTULOSE SYRUP 20 GM/30 ML CUP PO PRN (10:25)
[2017-11-17 11:33] VITALS: BP 135/67; PULSE 68; RESP 18; TEMP 97.1; O2SAT 97
[2017-11-17 12:39] VITALS: BP 162/80; PULSE 70; RESP 18; TEMP 98.1; O2SAT 97
[2017-11-17 13:00] VITALS: PULSE 60
[2017-11-17 14:00] VITALS: PULSE 62
[2017-11-17] MEDS ORDERED: ENOX40P SQ (14:41)
[2017-11-17] MEDS ORDERED: PANT40TA3 PO (14:41)
[2017-11-17] MEDS ORDERED: AMLO5 PO (14:41)
[2017-11-17] MEDS ORDERED: HYDR-3583 PO (14:41)
[2017-11-17] MEDS ORDERED: SENN187 PO (14:41)
[2017-11-17] MEDS ORDERED: METO25TA3 PO (14:41)
[2017-11-17] MEDS ORDERED: DOCU1CAP39 PO (14:41)
[2017-11-17] MEDS ORDERED: MORP1TAB25 PO (14:41)
[2017-11-17] MEDS ORDERED: CYCL10TA PO (14:41)
[2017-11-17] MEDS ORDERED: ENAL2.5T PO (14:41)
--- NOTE | 2017-11-17 14:43 | HHI.DS ---
Discharge Summary Admission Date Oct 30, 2017 at 16:37 Discharge Date: Nov 17, 2017 Admitting Diagnosis (1) Pathologic thoracic fracture ICD Code: M84.48XA - Pathological fracture, other site, initial encounter for fracture Status: Acute (2) Metastatic bone cancer ICD Code: C41.9 - Malignant neoplasm of bone and articular cartilage, unspecified Status: Acute (3) Cervical spinal stenosis ICD Code: M48.02 - Spinal stenosis, cervical region Status: Acute Procedures 11/05 Anterior cervical partial C4 corpectomy, complete C5 corpectomy, and partial C6 corpectomy; anterior C4-6 interbody allograft fusion; anterior C4-6 cervical plate placement; microsurgical technique Pathologic thoracic spine T4, T5 and T6 vertebral body fractures with epidural neoplasm and associated severe vertebral body height collapse and kyphosis 11/10 Brief History - From Admission Ms. Salgado is a pleasant 62-year-old female with a history of chronic back pain, tobacco use who presents to the emergency department on the advice of her primary care provider due to abnormal MRI of the cervical and thoracic spine. In September 2016, as patient was trying to cotton picker a backpack she heard a popping sound in her back. She immediately had pain. However in the last 6 months or so her back pain has been significantly pronounced and worsening. She reports constant sharp pain without any radiation. Her pain is mostly located in the mid back. She denies any fever or chills, weight loss. No history of any kind of malignancies. She saw her primary care provider who ordered MRI of cervical and thoracic spine. Patient underwent MRI studies on . MRI studies were significant for multiple vertebral bone lesions throughout the thoracic and lumbar spine. She also had within the occipital bone, C3 vertebral body, C5 vertebral body. Severe degenerative disc disease was also identified at C4-C5 and C5-C6 with posterior disc osteophyte complexes causing severe spinal stenosis. At the time of this interview, patient complains of persistent back pain. Otherwise she is tolerating diet well. No fever or chills. No changes in bowel or bladder habits. No loss of control of bowel or bladder. CBC/BMP: 11/15/17 0858 11/15/17 0858 Significant Findings Laboratory Tests Test 11/15/17 08:58 11/17/17 07:45 White Blood Count 16.4 TH/MM3 (4.0-11.0) Red Blood Count 3.24 MIL/MM3 (4.00-5.30) Hemoglobin 11.3 GM/DL (11.6-15.3) Hematocrit 33.0 % (35.0-46.0) Mean Corpuscular Volume 101.8 FL (80.0-100.0) Mean Corpuscular Hemoglobin 34.8 PG (27.0-34.0) Neutrophils (%) (Auto) 88.6 % (16.0-70.0) Lymphocytes (%) (Auto) 4.9 % (9.0-44.0) Neutrophils # (Auto) 14.5 TH/MM3 (1.8-7.7) Lymphocytes # (Auto) 0.8 TH/MM3 (1.0-4.8) Monocytes # (Auto) 1.0 TH/MM3 (0-0.9) Blood Urea Nitrogen 29 MG/DL (7-18) Total Protein 5.6 GM/DL (6.4-8.2) Albumin 2.3 GM/DL (3.4-5.0) Calcium Level 8.4 MG/DL (8.5-10.1) Imaging Last Impressions Soft Tissue Biopsy 11/13/17 0000 Signed Impressions: Service Date/Time: Monday, November 13, 2017 15:53 - CONCLUSION: Uncomplicated ultrasound guided needle biopsy of palpable left breast mass under ultrasound guidance. Ulises Mckoy MD FACR Thoracic Spine X-Ray 11/10/17 0000 Signed Impressions: Service Date/Time: Friday, November 10, 2017 12:00 - CONCLUSION: 1. Postsurgical changes as above. Tanner Kaur MD Chest X-Ray 11/10/17 0000 Signed Impressions: Service Date/Time: Friday, November 10, 2017 17:47 - CONCLUSION: 1. No acute cardiopulmonary disease. Tanner Kaur MD Cervical Spine X-Ray 11/05/17 0000 Signed Impressions: Service Date/Time: October 08:07 - CONCLUSION: Intraoperative images. Carter Carver MD Thoracic Spine CT 11/02/17 0000 Signed Impressions: Service Date/Time: Thursday, November 02, 2017 13:48 - CONCLUSION: 1. 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 Although suboptimally evaluated with CT, there is large amount of epidural tumor extension at these levels with significant spinal canal compromise. 2. Additional foci of metastatic disease at T7, T8 and likely T11. Please see above discussion. 3. MRI examination may be performed to further evaluate degree of epidural extension as clinically indicated. Kendall Butler MD Cervical Spine CT 11/02/17 0000 Signed Impressions: Service Date/Time: Thursday, November 02, 2017 13:38 - CONCLUSION: 1. 3 lytic lesions consistent with either metastatic disease or multiple myeloma. There is extension into the central canal involving the C3 lesion as detailed above. Carter Almodovar Jr., MD Breast Ultrasound 10/30/17 2213 Signed Impressions: Service Date/Time: Monday, October 30, 2017 22:25 - CONCLUSION: 1. Mass in left breast measuring up to 3 cm in diameter. Ultrasound core biopsy recommended. Jovanny Sal MD Head CT 10/30/17 1304 Signed Impressions: Service Date/Time: Monday, October 30, 2017 14:20 - CONCLUSION: Intracranial contents are unremarkable. Scattered nonspecific lucencies in the calvarium. Ulises Mckoy MD FACR Chest CT 10/30/17 0000 Signed Impressions: Service Date/Time: Monday, October 30, 2017 14:26 - CONCLUSION: The examination demonstrates a destructive lesion involving what are probably the T5 and T6 vertebral bodies. There does appear to be significant canal compromise with epidural spread of disease. This is highly suspicious for malignancy. Dedicated MRI imaging is warranted for further assessment. This lesion would be amenable to CT-guided biopsy for sampling. Papa Mckoy MD Abdomen/Pelvis CT 10/30/17 0000 Signed Impressions: Service Date/Time: Monday, October 30, 2017 14:26 - CONCLUSION: 1. Punctate nonobstructing stones in the kidneys bilaterally. 2. CT examination is otherwise within normal limits for age. Papa Mckoy MD PE at Discharge GENERAL: NAD with [place] neck collar in place SKIN: Warm and dry. HEAD: Normocephalic. EYES: No scleral icterus. No injection or drainage. NECK: TTP, trachea midline. No JVD or lymphadenopathy.[place] neck collar in place CARDIOVASCULAR: Regular rate and rhythm without murmurs, gallops, or rubs. RESPIRATORY: Breath sounds equal bilaterally. No accessory muscle use. GASTROINTESTINAL: Abdomen soft, non-tender, nondistended. MUSCULOSKELETAL: No cyanosis, or edema. BACK: Nontender without obvious deformity. No CVA tenderness. Hospital Course While in the hospital, patient was treated for Cervical Spinal stenosis.S/P Anterior cervical partial C4 corpectomy, complete C5 corpectomy, and partial C6 corpectomy; anterior C4-6 interbody allograft fusion; anterior C4-6 cervical plate placement; microsurgical technique-11/05 - Probable metastatic bone lesions - T5 , T6 pathologic fractures - Metastatic epidural spread - Left Breast mass - Neurosurgery and Oncology were consulted. - Pain management was provided accordingly -she Was weaned off Decadron - s/p T4-T6 laminectomy with neoplasm resection and T2-T9 fusion 11/10/17 -Pathology reports adenocarcinoma and suggest a neoplasm of breast origin. - PT to treat and eval -s/p ultrasound guided biopsy of left breast mass 11/13/17 and biopsy positive for Infiltrating ductal carcinoma -She will continue treatment with Aridimex - Hypertension She was treated with amlodipine 10 mg daily. Lopressor 12.5 mg po bid, Enalapril 2.5 mg po daily - Hypokalemia-resolved post replacement - smoker- counselled. Duo neb prn Incentive spirometry Lovenox - DVT prophylaxis Pt Condition on Discharge: Good Discharge Disposition: Rehab Inpatient Discharge Time: > 30 minutes Discharge Instructions DIET: Follow Instructions for: Heart Healthy Diet Activities you can perform: Regular-No Restrictions Follow up Referrals: Neurosurgery Oncology PCP Follow-up - 2-3 Days New Medications: Amlodipine (Norvasc) 5 Mg Tab 10 MG PO DAILY for Blood Pressure Management, #30 TAB Cyclobenzaprine (Flexeril) 10 Mg Tab 10 MG PO Q8H PRN for MUSCLE SPASM, #10 TAB Docusate Sodium (Dok) 100 Mg Cap 100 MG PO BID for Bowel Management, #20 CAP Enalapril (Enalapril) 2.5 Mg Tab 2.5 MG PO DAILY for Blood Pressure Management, #30 TAB Enoxaparin Inj (Lovenox Inj) 40 Mg/0.4 Ml Syr 40 MG SQ Q24H for Prevent Blood Clot, #10 INJECTION Hydrocodone/Acetaminophen (Hydrocodone-Acetamin 10-325 mg) 10 Mg-325 Mg Tablet 1 TAB PO Q4H PRN for PAIN SCALE 1 TO 5, #10 TAB Metoprolol Tartrate (Metoprolol Tartrate) 25 Mg Tab 12.5 MG PO Q12HR for Blood Pressure Management, #60 TAB Morphine ER (Morphine ER) 30 Mg Tab 30 MG PO Q8H for Pain Management, #10 TAB Pantoprazole (Pantoprazole) 40 Mg Tab 40 MG PO DAILY for Prevent Stress Ulcers, #10 TAB Sennosides (Senna-Lax) 8.6 Mg Tab 17.2 MG PO Q12H PRN for Moderate constipation, #20 TAB Discontinued Medications: Hydrocodone-Acetaminophen (Lortab) 5-325 Mg Tab 1 TAB PO Q6H PRN for PAIN GREATER THAN 6, #20 TAB 0 Refills Naproxen (Naproxen) 500 Mg Tab 500 MG PO BID for 7 Days, TAB 0 Refills Jori James MD Nov 17, 2017 14:43
[2017-11-18] MEDS ORDERED: DEXAMETHASONE 0.5 MG TAB PO SCH (09:00)
== END 2017-11-17 15:53 | DRG 454 ==
LOC: NEPC 12:36 → NEDA 16:37 → N06A 18:15 → N06B 11-10 17:20 → N03B 11-10 17:39 → N03A 11-10 21:12 → N06A 11-12 16:31 → HCIN 11-17 12:37
PROVIDERS: ADMIT Hospitalist; ATTEND Hospitalist
PROC: 0RB30ZZ Excision of Cervical Vertebral Disc, Open Approach (ICD-10-PCS; 2017-11-05)
PROC: 4A11X4G Monitoring of Peripheral Nervous Electrical Activity, Intraoperative, External Approach (ICD-10-PCS; 2017-11-05)
PROC: 0RG20K0 Fusion of 2 or more Cervical Vertebral Joints with Nonautologous Tissue Substitute, Anterior Approach, Anterior Column, Open Approach (ICD-10-PCS; principal; 2017-11-05 08:52)
PROC: 0RG70K1 Fusion of 2 to 7 Thoracic Vertebral Joints with Nonautologous Tissue Substitute, Posterior Approach, Posterior Column, Open Approach (ICD-10-PCS; 2017-11-10)
PROC: 00BX0ZZ Excision of Thoracic Spinal Cord, Open Approach (ICD-10-PCS; 2017-11-10)
PROC: 4A11X4G Monitoring of Peripheral Nervous Electrical Activity, Intraoperative, External Approach (ICD-10-PCS; 2017-11-10)
PROC: 0HBU3ZX Excision of Left Breast, Percutaneous Approach, Diagnostic (ICD-10-PCS; 2017-11-13)
DX: C79.51 Secondary malignant neoplasm of bone (principal); M84.58XA Pathological fracture in neoplastic disease, other specified site, initial encounter for fracture; M50.021 Cervical disc disorder at C4-C5 level with myelopathy; C50.912 Malignant neoplasm of unspecified site of left female breast; M48.02 Spinal stenosis, cervical region; M48.04 Spinal stenosis, thoracic region; M50.022 Cervical disc disorder at C5-C6 level with myelopathy; G89.3 Neoplasm related pain (acute) (chronic); I10 Essential (primary) hypertension; K59.00 Constipation, unspecified; M25.78 Osteophyte, vertebrae; E87.6 Hypokalemia; F17.210 Nicotine dependence, cigarettes, uncomplicated; M40.14 Other secondary kyphosis, thoracic region
CPT/HCPCS: 20206; 70450; 71045; 71260; 72040; 72070; 72125; 72128; 74177; 76000; 76642; 76942; 80048; 80053; 81001; 82550; 82607; 83735; 84165; 85025; 85027; 85610; 85730; 86300; 86335; 86850; 86900; 86901; 87086; 87641; 88305; 88307; 88341; 88342; 93005; 94002; 94150; 94640; 94664; 96374; 96375; C1713; J0131; J0690; J1100; J1650; J2270; J2310; J2370; J2405; J2710; J3010; J3370; J3480; J7030; J7050; J7120; J8540; L0150; L0172; L0484; Q9967